=== PATIENT | male | born 1955 | race Caucasian/White ===

== ENCOUNTER → 2018-01-06 17:16 | Outpatient (CLI) | payer MEDICARE, SELFPAY ==
[2018-01-06 18:05] LABS: Cholesterol 190 mg/dL (200); High Density Lipoprotein 43 mg/dL; Triglycerides 195 mg/dL; Very Low Density Lipoprotein 39 mg/dL (5-40)
== END ==
PROVIDERS: Visit Provider Physician Assistant
DX: Z79.899 Other long term (current) drug therapy (principal)
CPT/HCPCS: 80061

== ENCOUNTER → 2018-01-24 13:51 | Outpatient (CLI) | payer MEDICARE, SELFPAY ==
[2018-01-24 16:00] LABS: Absolute Lymphocyte Count 2.34 X10^3/ul (0.83-4.51); Absolute Neutrophil Count 3.8 X10^3/uL (2.0-7.7); Basophil# 0.05 X10^3/uL; Basophil% 0.7 % (0-1); Eosinophil# 0.42 X10^3/uL; Eosinophils% 5.7 % (0-5); Hematocrit 42.4 % (40-54); Hemoglobin 14.1 g/dl (13.0-16.5); Lymphocyte # 2.34 X10^3/ul (4.0); Lymphocyte % 31.7 % (19-41); Mean Corp Hgb Conc 33.3 g/gl (32-36); Mean Corpuscular Hgb 30.6 pg (27.0-32.0); Mean Platelet Vol. 10.1 fl (6.2-12.0); Monocyte# 0.81 X10^3/uL; Neutrophil # 3.76 X10^3/uL (2.7-7.7); Neutrophil % 50.8 % (47-70); Platelet Count 258 K/mm3 (150-450); RBC Distribution Width CV 12.8 % (11.6-14.6); RBC Distribution Width SD 42.8 fl (35.1-43.9); Red Blood Count 4.61 M/mm3 (4.6-6.2); White Blood Count 7.4 K/mm3 (4.4-11.0)
[2018-01-24 16:13] LABS: POSITIVE COUNT NO; POSITIVE DIFFERENTIAL NO; POSITIVE MORPHOLOGY NO
[2018-01-24 16:28] LABS: ALB/GLOB Ratio 1.1 RATIO (0.9-2.4); AST(SGOT) 19 U/L (15-37); Alanine Aminotransfer ALT/SGPT 28 U/L (16-61); Albumin, Serum 3.9 g/dL (3.2-5.0); Alkaline Phosphatase 83 U/L (45-117); Anion Gap 7 (5-15); BUN 15 mg/dL (7-18); BUN/Creat Ratio 10.2 RATIO (10-20); Calcium,Total 9.1 mg/dL (8.5-10.1); Chloride 106 mmol/L (98-107); Creatinine, Serum 1.47 mg/dL (0.70-1.30); EST Glomerular Filtration Rate 52 mL/min (>60); Est Glom Filt Rate - Afr Amer 63 mL/min (>60); Globulin 3.5 g/dL (2.2-4.2); Glucose 95 mg/dL (74-106); Potassium 3.7 mmol/L (3.5-5.1); Protein, Total 7.4 g/dL (6.4-8.2); Sodium Level 143 mmol/L (136-145)
== END ==
PROVIDERS: Family Provider Physician Assistant; PCP Physician Assistant; Visit Provider Internal Medicine Rheumatology
DX: L40.59 Other psoriatic arthropathy (principal); L40.9 Psoriasis, unspecified; M79.7 Fibromyalgia; M21.40 Flat foot [pes planus] (acquired), unspecified foot; H33.8 Other retinal detachments; G47.33 Obstructive sleep apnea (adult) (pediatric); I34.0 Nonrheumatic mitral (valve) insufficiency; E03.9 Hypothyroidism, unspecified; F32.89 Other specified depressive episodes
CPT/HCPCS: 36415; 80053; 85025

== ENCOUNTER → 2018-07-16 16:25 | Outpatient (CLI) | payer MEDICARE, SELFPAY ==
[2018-07-16 17:49] LABS: Absolute Lymphocyte Count 2.51 X10^3/ul (0.83-4.51); Absolute Neutrophil Count 3.6 X10^3/uL (2.0-7.7); Basophil# 0.05 X10^3/uL; Basophil% 0.7 % (0-1); Eosinophil# 0.29 X10^3/uL; Eosinophils% 4.1 % (0-5); Hematocrit 43.7 % (40-54); Hemoglobin 14.4 g/dl (13.0-16.5); Lymphocyte # 2.51 X10^3/ul (4.0); Lymphocyte % 35.4 % (19-41); Mean Corpuscular Hgb 30.4 pg (27.0-32.0); Mean Corpuscular Volume 92.4 fL (80-94); Mean Platelet Vol. 9.9 fl (6.2-12.0); Monocyte# 0.65 X10^3/uL; Monocyte% 9.2 % (0-10); Neutrophil # 3.59 X10^3/uL (2.7-7.7); Neutrophil % 50.5 % (47-70); Platelet Count 242 K/mm3 (150-450); RBC Distribution Width CV 12.1 % (11.6-14.6); RBC Distribution Width SD 41.3 fl (35.1-43.9); Red Blood Count 4.73 M/mm3 (4.6-6.2); White Blood Count 7.1 K/mm3 (4.4-11.0)
[2018-07-16 17:52] LABS: POSITIVE COUNT NO; POSITIVE DIFFERENTIAL NO; POSITIVE MORPHOLOGY NO
[2018-07-16 18:01] LABS: ALB/GLOB Ratio 1.1 RATIO (0.9-2.4); AST(SGOT) 15 U/L (15-37); Alanine Aminotransfer ALT/SGPT 27 U/L (16-61); Albumin, Serum 3.8 g/dL (3.2-5.0); Alkaline Phosphatase 79 U/L (45-117); Anion Gap 9 (5-15); BUN 10 mg/dL (7-18); BUN/Creat Ratio 7.5 RATIO (10-20); Calcium,Total 8.6 mg/dL (8.5-10.1); Chloride 106 mmol/L (98-107); Creatinine, Serum 1.33 mg/dL (0.70-1.30); EST Glomerular Filtration Rate 58 mL/min (>60); Est Glom Filt Rate - Afr Amer 70 mL/min (>60); Globulin 3.6 g/dL (2.2-4.2); Glucose 86 mg/dL (74-106); Potassium 3.6 mmol/L (3.5-5.1); Protein, Total 7.4 g/dL (6.4-8.2); Sodium Level 143 mmol/L (136-145); Uric Acid 7.6 mg/dL (3.5-7.2)
== END ==
PROVIDERS: Family Provider Physician Assistant; PCP Physician Assistant; Visit Provider Internal Medicine Rheumatology
DX: L40.59 Other psoriatic arthropathy (principal); E03.9 Hypothyroidism, unspecified; L40.9 Psoriasis, unspecified; M79.7 Fibromyalgia; M21.40 Flat foot [pes planus] (acquired), unspecified foot; H33.8 Other retinal detachments; G47.33 Obstructive sleep apnea (adult) (pediatric); I34.0 Nonrheumatic mitral (valve) insufficiency; F32.89 Other specified depressive episodes
CPT/HCPCS: 36415; 80053; 84550; 85025

== ENCOUNTER → 2018-12-31 15:36 | Outpatient (CLI) | payer MEDICARE, SELFPAY ==
[2018-12-31 17:46] LABS: AST(SGOT) 28 U/L (15-37); Alanine Aminotransfer ALT/SGPT 36 U/L (16-61); Albumin, Serum 4.1 g/dL (3.2-5.0); Alkaline Phosphatase 81 U/L (45-117); Anion Gap 11 (5-15); BUN 11 mg/dL (7-18); BUN/Creat Ratio 7.4 RATIO (10-20); Calcium,Total 9.2 mg/dL (8.5-10.1); Chloride 104 mmol/L (98-107); Creatinine, Serum 1.48 mg/dL (0.70-1.30); EST Glomerular Filtration Rate 51 mL/min (>60); Est Glom Filt Rate - Afr Amer 62 mL/min (>60); Glucose 85 mg/dL (74-106); Potassium 3.7 mmol/L (3.5-5.1); Protein, Total 8.1 g/dL (6.4-8.2); Sodium Level 142 mmol/L (136-145)
[2018-12-31 17:49] LABS: Absolute Lymphocyte Count 3.24 X10^3/ul (0.83-4.51); Absolute Neutrophil Count 3.4 X10^3/uL (2.0-7.7); Basophil# 0.06 X10^3/uL; Basophil% 0.7 % (0-1); Eosinophil# 0.62 X10^3/uL; Eosinophils% 7.6 % (0-5); Hematocrit 45.2 % (40-54); Hemoglobin 15.6 g/dl (13.0-16.5); Lymphocyte # 3.24 X10^3/ul (4.0); Lymphocyte % 39.6 % (19-41); Mean Corp Hgb Conc 34.5 g/gl (32-36); Mean Corpuscular Hgb 31.6 pg (27.0-32.0); Mean Corpuscular Volume 91.5 fL (80-94); Mean Platelet Vol. 10.4 fl (6.2-12.0); Monocyte# 0.86 X10^3/uL; Monocyte% 10.5 % (0-10); Neutrophil # 3.38 X10^3/uL (2.7-7.7); Neutrophil % 41.4 % (47-70); POSITIVE COUNT NO; POSITIVE DIFFERENTIAL NO; POSITIVE MORPHOLOGY NO; Platelet Count 290 K/mm3 (150-450); RBC Distribution Width CV 12.5 % (11.6-14.6); RBC Distribution Width SD 41.1 fl (35.1-43.9); Red Blood Count 4.94 M/mm3 (4.6-6.2); White Blood Count 8.2 K/mm3 (4.4-11.0)
== END ==
PROVIDERS: Family Provider Physician Assistant; PCP Physician Assistant; Referring Provider Internal Medicine Rheumatology; Visit Provider Internal Medicine Rheumatology
DX: L40.59 Other psoriatic arthropathy (principal); L40.9 Psoriasis, unspecified; M79.7 Fibromyalgia; M21.40 Flat foot [pes planus] (acquired), unspecified foot; H33.8 Other retinal detachments; G47.33 Obstructive sleep apnea (adult) (pediatric); I34.0 Nonrheumatic mitral (valve) insufficiency; F32.89 Other specified depressive episodes; E03.9 Hypothyroidism, unspecified
CPT/HCPCS: 36415; 80053; 85025

== ENCOUNTER → 2019-07-01 | Outpatient (CLI) | payer MEDICARE, SELFPAY ==
[2019-07-01 12:28] LABS: Absolute Lymphocyte Count 2.97 X10^3/uL (0.83-4.51); Absolute Neutrophil Count 3.2 X10^3/uL (2.0-7.7); Basophil# 0.07 X10^3/uL; Eosinophil# 0.34 X10^3/uL; Eosinophils% 4.8 % (0-5); Hematocrit 40.7 % (40-54); Hemoglobin 13.4 g/dL (13.0-16.5); Lymphocyte # 2.97 X10^3/ul (4.0); Lymphocyte % 41.6 % (19-41); Mean Corp Hgb Conc 32.9 g/dL (32-36); Mean Corpuscular Hgb 30.5 pg (27.0-32.0); Mean Corpuscular Volume 92.7 fL (80-94); Mean Platelet Vol. 10.7 fl (6.2-12.0); Monocyte# 0.57 X10^3/uL; NRBC Flagged by Analyzer 0 % (0-5); Neutrophil # 3.17 X10^3/uL (2.7-7.7); Neutrophil % 44.3 % (47-70); Platelet Count 238 K/mm3 (150-450); RBC Distribution Width CV 12.4 % (11.6-14.6); Red Blood Count 4.39 M/mm3 (4.6-6.2); White Blood Count 7.1 K/mm3 (4.4-11.0)
[2019-07-01 12:50] LABS: ALB/GLOB Ratio 1.1 RATIO (0.9-2.4); AST(SGOT) 18 U/L (15-37); Alanine Aminotransfer ALT/SGPT 28 U/L (16-61); Albumin, Serum 3.8 g/dL (3.2-5.0); Alkaline Phosphatase 74 U/L (45-117); Anion Gap 9 (5-15); BUN 11 mg/dL (7-18); BUN/Creat Ratio 7.2 RATIO (10-20); Calcium,Total 8.7 mg/dL (8.5-10.1); Chloride 105 mmol/L (98-107); Creatinine, Serum 1.53 mg/dL (0.70-1.30); EST Glomerular Filtration Rate 49 mL/min (>60); Est Glom Filt Rate - Afr Amer 60 mL/min (>60); Globulin 3.4 g/dL (2.2-4.2); Glucose 133 mg/dL (74-106); Potassium 3.4 mmol/L (3.5-5.1); Protein, Total 7.2 g/dL (6.4-8.2); Sodium Level 142 mmol/L (136-145)
== END | disposition home or self-care (01) ==
LOC: MTLAB 10:14
PROVIDERS: Family Provider Physician Assistant; PCP Physician Assistant; Referring Provider Internal Medicine Rheumatology; Visit Provider Internal Medicine Rheumatology
DX: L40.59 Other psoriatic arthropathy (principal); L40.9 Psoriasis, unspecified; M79.7 Fibromyalgia
CPT/HCPCS: 36415; 80053; 85025

== ENCOUNTER → 2019-12-31 11:16 | Outpatient (CLI) | payer MEDICARE, SELFPAY ==
[2019-12-31 14:16] LABS: Absolute Lymphocyte Count 3.33 X10^3/uL (0.83-4.51); Absolute Neutrophil Count 3.2 X10^3/uL (2.0-7.7); Basophil# 0.06 X10^3/uL; Basophil% 0.8 % (0-1); Eosinophil# 0.33 X10^3/uL; Eosinophils% 4.3 % (0-5); Hematocrit 42.8 % (40-54); Hemoglobin 14.5 g/dL (13.0-16.5); Lymphocyte # 3.33 X10^3/ul (4.0); Mean Corp Hgb Conc 33.9 g/dL (32-36); Mean Corpuscular Volume 91.6 fL (80-94); Mean Platelet Vol. 10.2 fl (6.2-12.0); Monocyte# 0.77 X10^3/uL; Monocyte% 9.9 % (0-10); NRBC Flagged by Analyzer 0 % (0-5); Neutrophil # 3.24 X10^3/uL (2.7-7.7); Neutrophil % 41.7 % (47-70); Platelet Count 248 K/mm3 (150-450); RBC Distribution Width SD 40.1 fl (35.1-43.9); Red Blood Count 4.67 M/mm3 (4.6-6.2); White Blood Count 7.8 K/mm3 (4.4-11.0)
[2019-12-31 14:28] LABS: ALB/GLOB Ratio 1.1 RATIO (0.9-2.4); AST(SGOT) 17 U/L (15-37); Alanine Aminotransfer ALT/SGPT 31 U/L (16-61); Albumin, Serum 3.7 g/dL (3.2-5.0); Alkaline Phosphatase 67 U/L (45-117); Anion Gap 3 (5-15); BUN 14 mg/dL (7-18); BUN/Creat Ratio 9.8 RATIO (10-20); Chloride 109 mmol/L (98-107); Creatinine, Serum 1.43 mg/dL (0.70-1.30); EST Glomerular Filtration Rate 53 mL/min (>60); Est Glom Filt Rate - Afr Amer 64 mL/min (>60); Globulin 3.4 g/dL (2.2-4.2); Glucose 89 mg/dL (74-106); Potassium 3.7 mmol/L (3.5-5.1); Protein, Total 7.1 g/dL (6.4-8.2); Sodium Level 141 mmol/L (136-145)
== END ==
PROVIDERS: PCP Physician Assistant; Referring Provider Internal Medicine Rheumatology; Visit Provider Internal Medicine Rheumatology
DX: L40.59 Other psoriatic arthropathy (principal); L40.9 Psoriasis, unspecified; M79.7 Fibromyalgia; M21.40 Flat foot [pes planus] (acquired), unspecified foot; H33.8 Other retinal detachments; G47.33 Obstructive sleep apnea (adult) (pediatric); I34.0 Nonrheumatic mitral (valve) insufficiency; E03.9 Hypothyroidism, unspecified
CPT/HCPCS: 36415; 80053; 85025

== ENCOUNTER → 2020-06-29 09:31 | Outpatient (CLI) | payer MEDICARE, SELFPAY ==
[2020-06-29 12:36] LABS: Absolute Lymphocyte Count 2.45 X10^3/uL (0.83-4.51); Basophil# 0.06 X10^3/uL; Basophil% 0.9 % (0-1); Eosinophil# 0.24 X10^3/uL; Eosinophils% 3.7 % (0-5); Hematocrit 40.6 % (40-54); Hemoglobin 13.4 g/dL (13.0-16.5); Lymphocyte # 2.45 X10^3/ul (4.0); Lymphocyte % 37.7 % (19-41); Mean Corpuscular Hgb 31.5 pg (27.0-32.0); Mean Corpuscular Volume 95.3 fL (80-94); Mean Platelet Vol. 10.3 fl (6.2-12.0); Monocyte% 10.8 % (0-10); NRBC Flagged by Analyzer 0 % (0-5); Neutrophil # 3.04 X10^3/uL (2.7-7.7); Neutrophil % 46.7 % (47-70); Platelet Count 231 K/mm3 (150-450); RBC Distribution Width CV 13.1 % (11.6-14.6); RBC Distribution Width SD 44.6 fl (35.1-43.9); Red Blood Count 4.26 M/mm3 (4.6-6.2); White Blood Count 6.5 K/mm3 (4.4-11.0)
[2020-06-29 12:43] LABS: ALB/GLOB Ratio 1.2 RATIO (0.9-2.4); AST(SGOT) 15 U/L (15-37); Alanine Aminotransfer ALT/SGPT 24 U/L (16-61); Albumin, Serum 3.8 g/dL (3.2-5.0); Alkaline Phosphatase 66 U/L (45-117); Anion Gap 4 (5-15); BUN 11 mg/dL (7-18); BUN/Creat Ratio 7.8 RATIO (10-20); Calcium,Total 8.7 mg/dL (8.5-10.1); Chloride 109 mmol/L (98-107); Creatinine, Serum 1.41 mg/dL (0.70-1.30); EST Glomerular Filtration Rate 54 mL/min (>60); Est Glom Filt Rate - Afr Amer 65 mL/min (>60); Globulin 3.2 g/dL (2.2-4.2); Glucose 85 mg/dL (74-106); Potassium 3.7 mmol/L (3.5-5.1); Sodium Level 142 mmol/L (136-145)
== END ==
PROVIDERS: PCP Physician Assistant; Referring Provider Internal Medicine Rheumatology; Visit Provider Internal Medicine Rheumatology
DX: L40.59 Other psoriatic arthropathy (principal); L40.9 Psoriasis, unspecified; M79.7 Fibromyalgia; M21.40 Flat foot [pes planus] (acquired), unspecified foot; H33.8 Other retinal detachments; G47.33 Obstructive sleep apnea (adult) (pediatric); I34.0 Nonrheumatic mitral (valve) insufficiency; E03.9 Hypothyroidism, unspecified; H40.9 Unspecified glaucoma
CPT/HCPCS: 36415; 80053; 85025

== ENCOUNTER → 2020-11-03 15:09 | Outpatient (CLI) | payer MEDICARE, SELFPAY ==
[2020-11-03 16:24] LABS: Cholesterol 166 mg/dL (200); High Density Lipoprotein 40 mg/dL; Triglycerides 147 mg/dL; Very Low Density Lipoprotein 29 mg/dL (5-40)
== END ==
PROVIDERS: PCP Physician Assistant; Referring Provider Physician Assistant; Visit Provider Physician Assistant
DX: E78.5 Hyperlipidemia, unspecified (principal)
CPT/HCPCS: 80061

== ENCOUNTER → 2020-12-26 15:23 | Outpatient (CLI) | payer MEDICARE, SELFPAY ==
[2020-12-26 17:57] LABS: Absolute Lymphocyte Count 2.38 X10^3/uL (0.83-4.51); Absolute Neutrophil Count 4.5 X10^3/uL (2.0-7.7); Basophil# 0.05 X10^3/uL; Basophil% 0.6 % (0-1); Eosinophil# 0.37 X10^3/uL; Eosinophils% 4.4 % (0-5); Hemoglobin 14.1 g/dL (13.0-16.5); Lymphocyte # 2.38 X10^3/ul (4.0); Lymphocyte % 28.6 % (19-41); Mean Corp Hgb Conc 33.6 g/dL (32-36); Mean Corpuscular Hgb 31.1 pg (27.0-32.0); Mean Corpuscular Volume 92.7 fL (80-94); Mean Platelet Vol. 10.5 fl (6.2-12.0); Monocyte# 0.97 X10^3/uL; Monocyte% 11.7 % (0-10); NRBC Flagged by Analyzer 0 % (0-5); Neutrophil # 4.51 X10^3/uL (2.7-7.7); Neutrophil % 54.2 % (47-70); Platelet Count 255 K/mm3 (150-450); RBC Distribution Width CV 11.9 % (11.6-14.6); RBC Distribution Width SD 40.8 fl (35.1-43.9); Red Blood Count 4.53 M/mm3 (4.6-6.2); White Blood Count 8.3 K/mm3 (4.4-11.0)
[2020-12-26 18:16] LABS: ALB/GLOB Ratio 1.1 RATIO (0.9-2.4); AST(SGOT) 23 U/L (15-37); Alanine Aminotransfer ALT/SGPT 36 U/L (16-61); Albumin, Serum 3.6 g/dL (3.2-5.0); Alkaline Phosphatase 81 U/L (45-117); Anion Gap 7 (5-15); BUN 14 mg/dL (7-18); BUN/Creat Ratio 9.6 RATIO (10-20); Calcium,Total 8.4 mg/dL (8.5-10.1); Chloride 105 mmol/L (98-107); Creatinine, Serum 1.46 mg/dL (0.70-1.30); EST Glomerular Filtration Rate 52 mL/min (>60); Est Glom Filt Rate - Afr Amer 63 mL/min (>60); Globulin 3.3 g/dL (2.2-4.2); Glucose 89 mg/dL (74-106); Potassium 3.3 mmol/L (3.5-5.1); Protein, Total 6.9 g/dL (6.4-8.2); Sodium Level 141 mmol/L (136-145)
== END ==
PROVIDERS: PCP Physician Assistant; Referring Provider Internal Medicine Rheumatology; Visit Provider Internal Medicine Rheumatology
DX: L40.59 Other psoriatic arthropathy (principal); L40.9 Psoriasis, unspecified; M79.7 Fibromyalgia; M21.40 Flat foot [pes planus] (acquired), unspecified foot; H53.8 Other visual disturbances; G47.33 Obstructive sleep apnea (adult) (pediatric); I34.0 Nonrheumatic mitral (valve) insufficiency; E03.9 Hypothyroidism, unspecified; H40.9 Unspecified glaucoma
CPT/HCPCS: 36415; 80053; 85025

== ENCOUNTER → 2021-06-29 11:23 | Outpatient (CLI) | payer MEDICARE, SELFPAY ==
[2021-06-29 15:19] LABS: Absolute Lymphocyte Count 2.46 X10^3/uL (0.83-4.51); Absolute Neutrophil Count 2.9 X10^3/uL (2.0-7.7); Basophil# 0.07 X10^3/uL; Basophil% 1.1 % (0-1); Eosinophil# 0.31 X10^3/uL; Eosinophils% 4.8 % (0-5); Hematocrit 40.1 % (40-54); Hemoglobin 13.1 g/dL (13.0-16.5); Lymphocyte # 2.46 X10^3/ul (0.83-4.51); Lymphocyte % 37.7 % (19-41); Mean Corp Hgb Conc 32.7 g/dL (32-36); Mean Corpuscular Hgb 31.5 pg (27.0-32.0); Mean Corpuscular Volume 96.4 fL (80-94); Mean Platelet Vol. 10.6 fl (6.2-12.0); Monocyte# 0.79 X10^3/uL; Monocyte% 12.1 % (0-10); NRBC Flagged by Analyzer 0 % (0-5); Neutrophil # 2.87 X10^3/uL (2.7-7.7); Platelet Count 219 K/mm3 (150-450); RBC Distribution Width CV 12.6 % (11.6-14.6); RBC Distribution Width SD 44.6 fl (35.1-43.9); Red Blood Count 4.16 M/mm3 (4.6-6.2); White Blood Count 6.5 K/mm3 (4.4-11.0)
[2021-06-29 15:47] LABS: ALB/GLOB Ratio 1.2 RATIO (0.9-2.4); AST(SGOT) 43 U/L (15-37); Alanine Aminotransfer ALT/SGPT 63 U/L (16-61); Albumin, Serum 3.8 g/dL (3.2-5.0); Alkaline Phosphatase 63 U/L (45-117); Anion Gap 6 (5-15); BUN 17 mg/dL (7-18); BUN/Creat Ratio 13.1 RATIO (10-20); Calcium,Total 8.8 mg/dL (8.5-10.1); Chloride 105 mmol/L (98-107); EST Glomerular Filtration Rate 59 mL/min (>60); Est Glom Filt Rate - Afr Amer 71 mL/min (>60); Globulin 3.1 g/dL (2.2-4.2); Glucose 101 mg/dL (74-106); Potassium 3.9 mmol/L (3.5-5.1); Protein, Total 6.9 g/dL (6.4-8.2); Sodium Level 140 mmol/L (136-145)
== END ==
PROVIDERS: PCP Physician Assistant; Referring Provider Internal Medicine Rheumatology; Visit Provider Internal Medicine Rheumatology
DX: L40.59 Other psoriatic arthropathy (principal); L40.9 Psoriasis, unspecified; M79.7 Fibromyalgia; M21.40 Flat foot [pes planus] (acquired), unspecified foot; H33.8 Other retinal detachments; G47.33 Obstructive sleep apnea (adult) (pediatric); I34.0 Nonrheumatic mitral (valve) insufficiency; E03.9 Hypothyroidism, unspecified; H40.9 Unspecified glaucoma
CPT/HCPCS: 36415; 80053; 85025

== ENCOUNTER 2021-12-14 12:35 | Outpatient (CLI) | payer MEDICARE, SELFPAY ==
[2021-12-14 13:34] LABS: Cholesterol 173 mg/dL (200); High Density Lipoprotein 41 mg/dL; Triglycerides 110 mg/dL; Very Low Density Lipoprotein 22 mg/dL (5-40)
[2021-12-14 13:36] LABS: Vitamin D,25 Hydroxy 66.2 ng/mL
== END 2021-12-14 23:59 | disposition short-term general hospital (02) ==
LOC: LABSPEC 12:37
PROVIDERS: PCP Physician Assistant; Visit Provider Physician Assistant
DX: E78.5 Hyperlipidemia, unspecified (principal); E55.9 Vitamin D deficiency, unspecified
CPT/HCPCS: 80061; 82306

== ENCOUNTER → 2022-05-28 | Outpatient (CLI) | payer MEDICARE, SELFPAY ==
[2022-05-28 09:55] LABS: Absolute Lymphocyte Count 2.83 X10^3/uL (0.83-4.51); Absolute Neutrophil Count 3.3 X10^3/uL (2.0-7.7); Basophil# 0.07 X10^3/uL; Basophil% 0.9 % (0-1); Eosinophil# 0.33 X10^3/uL; Eosinophils% 4.4 % (0-5); Hemoglobin 14.4 g/dL (13.0-16.5); Lymphocyte # 2.83 X10^3/ul (0.83-4.51); Lymphocyte % 38.1 % (19-41); Mean Corp Hgb Conc 34.3 g/dL (32-36); Mean Corpuscular Hgb 31.5 pg (27.0-32.0); Mean Corpuscular Volume 91.9 fL (80-94); Mean Platelet Vol. 10.2 fl (6.2-12.0); Monocyte# 0.89 X10^3/uL; NRBC Flagged by Analyzer 0 % (0-5); Neutrophil # 3.26 X10^3/uL (2.7-7.7); Neutrophil % 44.1 % (47-70); Platelet Count 227 K/mm3 (150-450); RBC Distribution Width CV 12.1 % (11.6-14.6); RBC Distribution Width SD 40.7 fl (35.1-43.9); Red Blood Count 4.57 M/mm3 (4.6-6.2); White Blood Count 7.4 K/mm3 (4.4-11.0)
[2022-05-28 10:26] LABS: ALB/GLOB Ratio 1.1 RATIO (0.9-2.4); AST(SGOT) 33 U/L (15-37); Alanine Aminotransfer ALT/SGPT 49 U/L (16-61); Albumin, Serum 3.6 g/dL (3.2-5.0); Alkaline Phosphatase 66 U/L (45-117); Anion Gap 7 (5-15); BUN 13 mg/dL (7-18); BUN/Creat Ratio 9.2 RATIO (10-20); Chloride 106 mmol/L (98-107); Creatinine, Serum 1.42 mg/dL (0.70-1.30); EST Glomerular Filtration Rate 53 mL/min (>60); Est Glom Filt Rate - Afr Amer 64 mL/min (>60); Globulin 3.4 g/dL (2.2-4.2); Glucose 94 mg/dL (74-106); Potassium 3.7 mmol/L (3.5-5.1); Sodium Level 140 mmol/L (136-145)
== END | disposition home or self-care (01) ==
PROVIDERS: PCP Physician Assistant; Referring Provider Internal Medicine Rheumatology; Visit Provider Internal Medicine Rheumatology
DX: L40.59 Other psoriatic arthropathy (principal); M79.7 Fibromyalgia; M21.40 Flat foot [pes planus] (acquired), unspecified foot; H33.8 Other retinal detachments; G47.33 Obstructive sleep apnea (adult) (pediatric); I34.0 Nonrheumatic mitral (valve) insufficiency; F32.9 Major depressive disorder, single episode, unspecified; E03.9 Hypothyroidism, unspecified; H40.9 Unspecified glaucoma; Z79.899 Other long term (current) drug therapy
CPT/HCPCS: 36415; 80053; 85025

== ENCOUNTER → 2022-12-04 | Outpatient (CLI) | payer MEDICARE, SELFPAY ==
[2022-12-04 12:17] LABS: Absolute Lymphocyte Count 1.88 X10^3/uL (0.83-4.51); Absolute Neutrophil Count 3.4 X10^3/uL (2.0-7.7); Basophil# 0.08 X10^3/uL; Basophil% 1.3 % (0-1); Eosinophil# 0.31 X10^3/uL; Eosinophils% 4.9 % (0-5); Hematocrit 40.2 % (40-54); Hemoglobin 13.6 g/dL (13.0-16.5); Lymphocyte # 1.88 X10^3/ul (0.83-4.51); Lymphocyte % 29.8 % (19-41); Mean Corp Hgb Conc 33.8 g/dL (32-36); Mean Corpuscular Hgb 31.8 pg (27.0-32.0); Mean Corpuscular Volume 93.9 fL (80-94); Mean Platelet Vol. 9.9 fl (6.2-12.0); Monocyte# 0.62 X10^3/uL; Monocyte% 9.8 % (0-10); NRBC Flagged by Analyzer 0 % (0-5); Neutrophil # 3.38 X10^3/uL (2.7-7.7); Neutrophil % 53.7 % (47-70); Platelet Count 281 K/mm3 (150-450); RBC Distribution Width CV 12.2 % (11.6-14.6); RBC Distribution Width SD 42.4 fl (35.1-43.9); Red Blood Count 4.28 M/mm3 (4.6-6.2); White Blood Count 6.3 K/mm3 (4.4-11.0)
[2022-12-04 12:39] LABS: AST(SGOT) 20 U/L (15-37); Alanine Aminotransfer ALT/SGPT 35 U/L (16-61); Albumin, Serum 3.5 g/dL (3.2-5.0); Alkaline Phosphatase 63 U/L (45-117); Anion Gap 8 (5-15); BUN 20 mg/dL (7-18); BUN/Creat Ratio 14.8 RATIO (10-20); Calcium,Total 8.9 mg/dL (8.5-10.1); Chloride 105 mmol/L (98-107); Creatinine, Serum 1.35 mg/dL (0.70-1.30); EST Glomerular Filtration Rate 56 mL/min (>60); Est Glom Filt Rate - Afr Amer 68 mL/min (>60); Globulin 3.5 g/dL (2.2-4.2); Glucose 123 mg/dL (74-106); Potassium 3.9 mmol/L (3.5-5.1); Sodium Level 140 mmol/L (136-145)
== END | disposition home or self-care (01) ==
LOC: MTLAB 10:33
PROVIDERS: PCP Physician Assistant; Referring Provider Internal Medicine Rheumatology; Visit Provider Internal Medicine Rheumatology
DX: L40.59 Other psoriatic arthropathy (principal); M79.7 Fibromyalgia; M21.40 Flat foot [pes planus] (acquired), unspecified foot; H33.8 Other retinal detachments; G47.33 Obstructive sleep apnea (adult) (pediatric); I34.0 Nonrheumatic mitral (valve) insufficiency; F32.9 Major depressive disorder, single episode, unspecified; E03.9 Hypothyroidism, unspecified; H40.9 Unspecified glaucoma; Z79.899 Other long term (current) drug therapy
CPT/HCPCS: 36415; 80053; 85025

== ENCOUNTER → 2023-05-30 | Outpatient (CLI) | payer MEDICARE, SELFPAY ==
[2023-05-30 12:21] LABS: Absolute Lymphocyte Count 2.55 X10^3/uL (0.83-4.51); Absolute Neutrophil Count 4.3 X10^3/uL (2.0-7.7); Basophil# 0.09 X10^3/uL; Basophil% 1.1 % (0-1); Eosinophil# 0.36 X10^3/uL; Eosinophils% 4.4 % (0-5); Hematocrit 43.3 % (40-54); Hemoglobin 14.7 g/dL (13.0-16.5); Lymphocyte # 2.55 X10^3/ul (0.83-4.51); Lymphocyte % 31.2 % (19-41); Mean Corp Hgb Conc 33.9 g/dL (32-36); Mean Corpuscular Hgb 31.1 pg (27.0-32.0); Mean Corpuscular Volume 91.7 fL (80-94); Mean Platelet Vol. 10.5 fl (6.2-12.0); Monocyte# 0.84 X10^3/uL; Monocyte% 10.3 % (0-10); NRBC Flagged by Analyzer 0 % (0-5); Neutrophil % 52.5 % (47-70); Platelet Count 255 K/mm3 (150-450); RBC Distribution Width CV 12.1 % (11.6-14.6); RBC Distribution Width SD 40.6 fl (35.1-43.9); Red Blood Count 4.72 M/mm3 (4.6-6.2); White Blood Count 8.2 K/mm3 (4.4-11.0)
[2023-05-30 12:32] LABS: AST(SGOT) 22 U/L (15-37); Alanine Aminotransfer ALT/SGPT 26 U/L (16-61); Albumin, Serum 3.8 g/dL (3.2-5.0); Alkaline Phosphatase 76 U/L (45-117); Anion Gap 5 (5-15); BUN 16 mg/dL (7-18); Calcium,Total 9.1 mg/dL (8.5-10.1); Chloride 107 mmol/L (98-107); Creatinine, Serum 1.46 mg/dL (0.70-1.30); EST Glomerular Filtration Rate 51 mL/min (>60); Est Glom Filt Rate - Afr Amer 62 mL/min (>60); Glucose 136 mg/dL (74-106); Protein, Total 7.8 g/dL (6.4-8.2); Sodium Level 139 mmol/L (136-145)
== END | disposition home or self-care (01) ==
LOC: MTLAB 10:50
PROVIDERS: PCP Physician Assistant; Referring Provider Internal Medicine Rheumatology; Visit Provider Internal Medicine Rheumatology
DX: L40.59 Other psoriatic arthropathy (principal); M79.7 Fibromyalgia; Z79.899 Other long term (current) drug therapy
CPT/HCPCS: 36415; 80053; 85025

== ENCOUNTER → 2023-09-02 | Outpatient (CLI) | payer MEDICARE, SELFPAY ==
[2023-09-02 10:04] LABS: Absolute Lymphocyte Count 3.44 X10^3/uL (0.83-4.51); Absolute Neutrophil Count 5.3 X10^3/uL (2.0-7.7); Basophil# 0.11 X10^3/uL; Basophil% 1.1 % (0-1); Eosinophil# 0.36 X10^3/uL; Eosinophils% 3.5 % (0-5); Hemoglobin 14.2 g/dL (13.0-16.5); Lymphocyte # 3.44 X10^3/ul (0.83-4.51); Lymphocyte % 33.4 % (19-41); Mean Corpuscular Hgb 31.6 pg (27.0-32.0); Mean Corpuscular Volume 95.6 fL (80-94); Mean Platelet Vol. 10.5 fl (6.2-12.0); Monocyte# 1.06 X10^3/uL; Monocyte% 10.3 % (0-10); NRBC Flagged by Analyzer 0 % (0-5); Neutrophil # 5.29 X10^3/uL (2.7-7.7); Neutrophil % 51.3 % (47-70); Platelet Count 264 K/mm3 (150-450); RBC Distribution Width CV 12.3 % (11.6-14.6); White Blood Count 10.3 K/mm3 (4.4-11.0)
[2023-09-02 10:29] LABS: AST(SGOT) 17 U/L (15-37); Alanine Aminotransfer ALT/SGPT 28 U/L (16-61); Albumin, Serum 3.8 g/dL (3.2-5.0); Alkaline Phosphatase 68 U/L (45-117); Anion Gap 7 (5-15); BUN 19 mg/dL (7-18); BUN/Creat Ratio 14.4 RATIO (10-20); Calcium,Total 8.8 mg/dL (8.5-10.1); Chloride 104 mmol/L (98-107); Creatinine, Serum 1.32 mg/dL (0.70-1.30); EST Glomerular Filtration Rate 58 mL/min (>60); Est Glom Filt Rate - Afr Amer 70 mL/min (>60); Globulin 3.9 g/dL (2.2-4.2); Glucose 110 mg/dL (74-106); Potassium 3.4 mmol/L (3.5-5.1); Protein, Total 7.7 g/dL (6.4-8.2); Sodium Level 139 mmol/L (136-145)
== END | disposition home or self-care (01) ==
LOC: MTLAB 07:02
PROVIDERS: PCP Physician Assistant; Referring Provider Internal Medicine Rheumatology; Visit Provider Internal Medicine Rheumatology
DX: L40.59 Other psoriatic arthropathy (principal); M79.7 Fibromyalgia; Z79.899 Other long term (current) drug therapy
CPT/HCPCS: 36415; 80053; 85025

== ENCOUNTER → 2023-09-25 | Outpatient (CLI) | payer MEDICARE, SELFPAY ==
[2023-09-25 16:55] LABS: Pathologist Comment May follow
[2023-09-25 18:26] LABS: Synovial Fld Mononuclear WBC # 0.135 10^3/ul; Synovial Fld Mononuclear WBC % 87.1 %; Synovial Fld Polynuclear WBC % 12.9 %
[2023-09-25 18:39] LABS: RBC /Synovial Fluid 25 /mm3 (0)
[2023-09-25 21:12] LABS: AUTO B FLUID DILUENT BKGD CT WBC <0.1 RBC <0.01 (W<.1,R<.01); CRYSTALS, BODY FLUID See PATH REV; Source- Body Fluid SYNOVIAL
[2023-09-25 21:13] LABS: Appearance /Synovial Fluid Clear (CLEAR); Color / Synovial Fluid Yellow (Pale Yellow); Lymph 6 %; Source / Synovial Fluid RIGHT KNEE
[2023-09-25 21:14] LABS: Monocyte /Synovial Fluid 87 %
[2023-09-25 21:15] LABS: Neutrophil 7 % (0-25)
[2023-09-25 21:16] LABS: Body Fluid QC Type(s) BF1Q,BF2Q
[2023-09-27 09:40] LABS: Pathologist Review Reviewed
== END | disposition home or self-care (01) ==
LOC: LABSPEC 16:26
PROVIDERS: PCP Physician Assistant; Visit Provider Internal Medicine Rheumatology
DX: L40.59 Other psoriatic arthropathy (principal); M79.7 Fibromyalgia; Z79.899 Other long term (current) drug therapy
CPT/HCPCS: 87070; 87075; 87205; 89050; 89051; 89060

== ENCOUNTER → 2023-12-04 | Outpatient (CLI) | payer MEDICARE, SELFPAY ==
[2023-12-04 17:34] LABS: Absolute Lymphocyte Count 2.12 X10^3/uL (0.83-4.51); Absolute Neutrophil Count 3.2 X10^3/uL (2.0-7.7); Basophil# 0.06 X10^3/uL; Basophil% 0.9 % (0-1); Eosinophil# 0.43 X10^3/uL; Eosinophils% 6.3 % (0-5); Hematocrit 38.8 % (40-54); Hemoglobin 12.7 g/dL (13.0-16.5); Lymphocyte # 2.12 X10^3/ul (0.83-4.51); Lymphocyte % 31.2 % (19-41); Mean Corp Hgb Conc 32.7 g/dL (32-36); Mean Corpuscular Volume 94.6 fL (80-94); Mean Platelet Vol. 10.4 fl (6.2-12.0); Monocyte# 0.93 X10^3/uL; Monocyte% 13.7 % (0-10); NRBC Flagged by Analyzer 0 % (0-5); Neutrophil # 3.23 X10^3/uL (2.7-7.7); Neutrophil % 47.6 % (47-70); Platelet Count 247 K/mm3 (150-450); RBC Distribution Width CV 12.5 % (11.6-14.6); RBC Distribution Width SD 43.4 fl (35.1-43.9); White Blood Count 6.8 K/mm3 (4.4-11.0)
[2023-12-04 18:30] LABS: AST(SGOT) 21 U/L (15-37); Alanine Aminotransfer ALT/SGPT 19 U/L (16-61); Albumin, Serum 3.6 g/dL (3.2-5.0); Alkaline Phosphatase 63 U/L (45-117); Anion Gap 6 (5-15); BUN 18 mg/dL (7-18); BUN/Creat Ratio 12.4 RATIO (10-20); Calcium,Total 8.7 mg/dL (8.5-10.1); Chloride 107 mmol/L (98-107); Creatinine, Serum 1.45 mg/dL (0.70-1.30); EST Glomerular Filtration Rate 52 mL/min (>60); Est Glom Filt Rate - Afr Amer 62 mL/min (>60); Globulin 3.6 g/dL (2.2-4.2); Glucose 89 mg/dL (74-106); Protein, Total 7.2 g/dL (6.4-8.2); Sodium Level 141 mmol/L (136-145)
== END | disposition home or self-care (01) ==
LOC: MTLAB 15:37
PROVIDERS: PCP Physician Assistant; Referring Provider Internal Medicine Rheumatology; Visit Provider Internal Medicine Rheumatology
DX: L40.59 Other psoriatic arthropathy (principal); M79.7 Fibromyalgia; M21.40 Flat foot [pes planus] (acquired), unspecified foot; H33.8 Other retinal detachments; G47.33 Obstructive sleep apnea (adult) (pediatric); I34.0 Nonrheumatic mitral (valve) insufficiency; F32.9 Major depressive disorder, single episode, unspecified; Z79.899 Other long term (current) drug therapy
CPT/HCPCS: 36415; 80053; 85025

== ENCOUNTER → 2024-01-01 | Outpatient (CLI) | payer MEDICARE, SELFPAY ==
[2024-01-01 09:18] LABS: Erythrocyte Sedimentation Rate 2 mm/hr (0-20)
--- OUTSIDE RECORDS SUMMARY | 2024-01-01 09:28 | XMS RPT_ITS | CCD ---
Author Name Unknown Address [address] [place] [address] Organization [facility] Care Team Providers Care Land Surveyor Name Role Phone DEYA TAM Unavailable Unavailable DEYA TAM Unavailable Unavailable Juana Wang PA-C Primary Care Provider [phone] Juana Wang PA-C Primary Care Provider [phone] Juana Wang PA-C Primary Care Provider [phone] Juana WANG Referring Unavailable Juana WANG Primary Care Unavailable Juana WANG Primary Care Unavailable Juana WANG Attending Unavailable Juana WANG Primary Care Unavailable GABRIELA FARIA Referring Unavailable Juana WANG Primary Care Unavailable Juana WANG Attending Unavailable Juana WANG Primary Care Unavailable Allergies Allergy Classification Reported Allergen(s) Allergy Type Date of Onset Reaction(s) Facility (20 sources) codeine; Translations: [CODEINE] Drug Allergy 0 Mental Status Change [facility] Repository (20 sources) methotrexate; Translations: [METHOTREXATE] Drug Allergy 7 Rash [facility] Repository (20 sources) pseudoephedrine; Translations: [PSEUDOEPHEDRINE ] Drug Allergy 0 Intolerance [facility] Repository (20 sources) SUMAtriptan; Translations: [SUMATRIPTAN SUCCINATE] Drug Allergy 0 Intolerance [facility] Repository Medications Current Medications Medication Drug Class(es) Dates Sig (Normalized) Sig (Original) cephalexin 500 mg oral capsule (1 source) Cephalosporin Antibacterial Start: 11-29-2022 End: 12-06-2022 take 1 capsule by mouth three times daily cephALEXin (KEFLEX) 500 mg capsule Take 1 capsule by mouth three times daily for 7 days. 21 capsule 0 11/29/2022 12/06/2022 Active Completed/Discontinued Medications Medication Drug Class(es) Dates Sig (Normalized) Sig (Original) [id number] 200 actuat albuterol 0.09 mg/actuat metered dose inhaler (18 sources) beta2-Adrenergic Agonist Start: 08-25-2019 take 2 puff(s) by inhalation every six hours as needed albuterol HFA (PROAIR HFA) 90 mcg/actuation inhaler Indications: Bronchitis Inhale 2 Puffs as instructed every 6 hours as needed. 1 Inhaler 0 08/25/2019 Active Problems Active Problems Problem Classification Problem Date Documented Date Episodic/Chronic Aortic; peripheral; and visceral artery aneurysms (20 sources) Dilatation of aorta; Translations: [Aortic ectasia, unspecified site] Onset: 09-22-2019 09-22-2019 Chronic Asthma (20 sources) Mild persistent asthma; Translations: [Mild persistent asthma, uncomplicated] Onset: 02-14-2018 02-14-2018 Chronic Chronic kidney disease (20 sources) Chronic kidney disease stage 3A ; Translations: [Chronic renal failure, stage 3a] Onset: 12-15-2021 12-15-2021 Chronic Deficiency and other anemia (1 source) Iron deficiency anemia, unspecified; Translations: [Iron deficiency anemia, unspecified iron deficiency anemia type] Onset: 12-20-2023 Episodic Disorders of lipid metabolism (20 sources) Hyperlipidemia; Translations: [Hyperlipidemia, unspecified] Onset: 04-24-2012 04-24-2012 Chronic Essential hypertension (20 sources) Hypertensive disorder; Translations: [Essential (primary) hypertension] Onset: 06-01-2010 06-01-2010 Chronic Gout and other crystal arthropathies (2 sources) 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; Translations: [Idiopathic chronic gout, unspecified ankle and foot, without tophus (tophi)] Chronic Heart valve disorders (20 sources) Mitral valve regurgitation; Translations: [Nonrheumatic mitral (valve) insufficiency] Onset: 02-02-2010 12-15-2021 Chronic Mood disorders (19 sources) Depressive disorder; Translations: [Depression] Onset: 02-02-2010 02-02-2010 Chronic Mycoses (1 source) Onychomycosis; Translations: [Tinea unguium] Episodic Nutritional deficiencies (19 sources) Vitamin D deficiency; Translations: [Vitamin D deficiency, unspecified] Onset: 02-06-2010 02-06-2010 Chronic Other endocrine disorders (5 sources) Hypogonadotropic hypogonadism; Translations: [Testicular hypofunction] Onset: 09-05-2010 11-09-2010 Chronic Other endocrine disorders (13 sources) Male hypogonadism; Translations: [Testicular hypofunction] Onset: 09-05-2010 11-09-2010 Chronic Other inflammatory condition of skin (20 sources) Psoriatic arthritis; Translations: [Arthropathic psoriasis, unspecified] Onset: 07-20-2014 11-27-2021 Chronic Other inflammatory condition of skin (1 source) Arthropathic psoriasis, unspecified; Translations: [Psoriatic arthritis (HCC)] Onset: 11-28-2021 Chronic Other non-traumatic joint disorders (1 source) Pain in right knee; Translations: [Pain in joint, lower leg] Episodic Other non-traumatic joint disorders (1 source) Shoulder pain; Translations: [Pain in right shoulder] Episodic Other nutritional; endocrine; and metabolic disorders (4 sources) Body mass index 40+ - severely obese; Translations: [Body mass index (BMI) 40.0-44.9, adult] Onset: 06-16-2023 06-16-2023 Chronic Other nutritional; endocrine; and metabolic disorders (1 source) Body mass index (BMI) 40.0-44.9, adult; Translations: [Body mass index (BMI) 40.0-44.9, adult (HCC)] Onset: 06-16-2023 Chronic Other skin disorders (1 source) Nail discoloration; Translations: [Other nail disorders] Episodic Other skin disorders (1 source) Onycholysis; Translations: [Onycholysis] Episodic Other upper respiratory disease (19 sources) Chronic rhinitis; Translations: [Chronic rhinitis] Onset: 03-03-2010 03-03-2010 Chronic Other upper respiratory disease (18 sources) Mixed rhinitis; Translations: [Chronic rhinitis] Onset: 02-14-2018 02-14-2018 Chronic Residual codes; unclassified (20 sources) Obstructive sleep apnea syndrome; Translations: [Obstructive sleep apnea (adult) (pediatric)] Onset: 03-03-2010 11-27-2021 Chronic Residual codes; unclassified (1 source) Obstructive sleep apnea (adult) (pediatric); Translations: [JAS (obstructive sleep apnea)] Onset: 11-27-2021 Chronic Residual codes; unclassified (1 source) Pain; Translations: [Pain, unspecified] 08-31-2023 Episodic Respiratory failure; insufficiency; arrest (adult) (1 source) Respiratory failure; insufficiency; arrest (adult); Translations: [Chronic renal failure, stage 3a (HCC)] Onset: 12-15-2021 Schizophrenia and other psychotic disorders (20 sources) Paranoid disorder; Translations: [Delusional disorders] Onset: 04-02-2013 04-02-2013 Chronic Skin and subcutaneous tissue infections (1 source) Paronychia of right thumb; Translations: [Cellulitis of right finger] Episodic Unclassified (18 sources) Hypogonadism; Translations: [Hypogonadism] Onset: 06-26-2010 06-26-2010 Past or Other Problems Problem Classification Problem Date Documented Da te Episodic/Chronic Abdominal hernia (19 sources) Unilateral inguinal hernia, without obstruction or gangrene, not specified as recurrent; Translations: [Inguinal hernia] Onset: 08-29-2017 08-29-2017 Episodic Allergic reactions (4 sources) Other specified dermatitis; Translations: [Unspecified pruritic disorder] Onset: 03-13-2018 03-13-2018 Episodic Other and unspecified benign neoplasm (18 sources) Benign neoplasm of colon; Translations: [Benign neoplasm of colon, unspecified] Onset: 05-12-2010 10-07-2017 Episodic Other connective tissue disease (18 sources) Muscle pain; Translations: [Myalgia, unspecified site] Onset: 03-03-2010 03-03-2010 Episodic Other gastrointestinal disorders (18 sources) Diarrhea; Translations: [Diarrhea, unspecified] Onset: 05-12-2010 05-12-2010 Episodic Other inflammatory condition of skin (14 sources) Pruritus of skin; Translations: [Pruritus, unspecified] Onset: 03-13-2018 03-13-2018 Episodic Residual codes; unclassified (1 source) Pain, unspecified; Translations: [Pain] Onset: 08-31-2023 Episodic Spondylosis; intervertebral disc disorders; other back problems (18 sources) Thoracic and lumbosacral neuritis; Translations: [Thoracic or lumbosacral neuritis or radiculitis, unspecified] Onset: 06-22-2014 06-22-2014 Episodic Results Test Name Value Interpretation Reference Range [facility] ity Vital Signs Date Time Vital Sign Value Performing Clinician Marilyn rajan 08-31-2023 08:40-0400 Body temperature 97.7 [degF] Gabriela Faria APRN.SHELLFISH MANAGER Work Phone: [facility] 08-31-2023 08:40-0400 Body weight 138.98 kg Gabriela Faria APRN.SHELLFISH MANAGER Work Phone: [facility] 08-31-2023 08:40-0400 Diastolic blood pressure 84 mm[Hg] Gabriela Faria APRN.SHELLFISH MANAGER Work Phone: [facility] 08-31-2023 08:40-0400 Heart rate 71 /min Gabriela Faria APRN.SHELLFISH MANAGER Work Phone: [facility] 08-31-2023 08:40-0400 Respiratory rate 16 /min Gabriela Faria APRN.SHELLFISH MANAGER Work Phone: [facility] 08-31-2023 08:40-0400 SaO2% (BldA) [Mass fraction] 97 % Gabriela Faria APRN.SHELLFISH MANAGER Work Phone: [facility] 08-31-2023 08:40-0400 Systolic blood pressure 148 mm[Hg] Gabriela Faria APRN.SHELLFISH MANAGER Work Phone: [facility] 06-14-2023 14:54-0400 Body weight 140.16 kg NA Wang PA-C Work Phone: [facility] 06-14-2023 14:54-0400 Diastolic blood pressure 72 mm[Hg] NA Wang PA-C Work Phone: [facility] 06-14-2023 14:54-0400 Heart rate 60 /min NA Wang PA-C Work Phone: [facility] 06-14-2023 14:54-0400 Respiratory rate 16 /min NA Wang PA-C Work Phone: [facility] 06-14-2023 14:54-0400 SaO2% (BldA) [Mass fraction] 97 % NA Wang PA-C Work Phone: [facility] 06-14-2023 14:54-0400 Systolic blood pressure 138 mm[Hg] NA Wang PA-C Work Phone: [facility] 12-17-2022 14:02-0500 Body weight 140.16 kg NA Wang PA-C Work Phone: [facility] 12-17-2022 14:02-0500 Diastolic blood pressure 68 mm[Hg] NA Wang PA-C Work Phone: [facility] 12-17-2022 14:02-0500 Heart rate 65 /min NA Wang PA-C Work Phone: [facility] 12-17-2022 14:02-0500 Respiratory rate 20 /min NA Wang PA-C Work Phone: [facility] 12-17-2022 14:02-0500 SaO2% (BldA) [Mass fraction] 97 % NA Wang PA-C Work Phone: [facility] 12-17-2022 14:02-0500 Systolic blood pressure 132 mm[Hg] NA Wang PA-C Work Phone: [facility] 11-29-2022 19:47-0500 Body temperature 97.59 [degF] Ava Athy PA-C Work Phone: [facility] 11-29-2022 19:47-0500 Body weight 141.88 kg Ava Athy PA-C Work Phone: [facility] 11-29-2022 19:47-0500 Diastolic blood pressure 76 mm[Hg] Ava Athy PA-C Work Phone: [facility] 11-29-2022 19:47-0500 Heart rate 70 /min Ava Athy PA-C Work Phone: [facility] 11-29-2022 19:47-0500 Respiratory rate 18 /min Ava Athy PA-C Work Phone: [facility] 11-29-2022 19:47-0500 SaO2% (BldA) [Mass fraction] 98 % Ava Athy PA-C Work Phone: [facility] 11-29-2022 19:47-0500 Systolic blood pressure 140 mm[Hg] Ava Athy PA-C Work Phone: [facility] 10-22-2022 13:57-0500 Body temperature 98.6 [degF] NA Wang PA-C Work Phone: [facility] 10-22-2022 13:57-0500 Body weight 140.16 kg NA Wang PA-C Work Phone: [facility] 10-22-2022 13:57-0500 Diastolic blood pressure 70 mm[Hg] NA Wnag PA-C Work Phone: [facility] 10-22-2022 13:57-0500 Heart rate 74 /min NA Wang PA-C Work Phone: [facility] 10-22-2022 13:57-0500 Respiratory rate 16 /min NA Wang PA-C Work Phone: [facility] 10-22-2022 13:57-0500 SaO2% (BldA) [Mass fraction] 97 % NA Wang PA-C Work Phone: [facility] 10-22-2022 13:57-0500 Systolic blood pressure 124 mm[Hg] NA Wang PA-C Work Phone: [facility] 06-15-2022 14:11-0400 Body temperature 98.71 [degF] NA Wang PA-C Work Phone: [facility] 06-15-2022 14:11-0400 Body weight 139.53 kg NA Wang PA-C Work Phone: [facility] 06-15-2022 14:11-0400 Diastolic blood pressure 78 mm[Hg] NA Wang PA-C Work Phone: [facility] 06-15-2022 14:11-0400 Heart rate 74 /min NA Wang PA-C Work Phone: [facility] 06-15-2022 14:11-0400 Respiratory rate 18 /min VENUS Wang PA-C Work Phone: [facility] 06-15-2022 14:11-0400 SaO2% (BldA) [Mass fraction] 96 % VENUS Wang PA-C Work Phone: [facility] 06-15-2022 14:11-0400 Systolic blood pressure 138 mm[Hg] VENUS SWAIN-Eleuterio Work Phone: [facility] Encounters Encounter Date Encounter Type Care Provider Facility Start: 12-20-2023 End: 12-21-2023 [facility] Start: 08-31-2023 End: 08-31-2023 [facility] Start: 08-31-2023 End: 08-31-2023 Patient encounter procedure Gabriela Faria APRN.CNP Work Phone: [facility] Procedures Date Procedure Procedure Detail Performing Clinician Start: 06-11-2023 Lipid 1996 panel - S hadley or Plasma Gabriela Faria APRN.SHELLFISH MANAGER Work Phone: Start: 11-20-2019 Colonoscopy VENUS Wang PA-C Work Phone: Plan of Treatment Date Care Activity Detail Author Start: 10-24-2031 Urine microalbumin profile [facility] Start: 06-11-2028 Lipid 1996 panel - Serum or Plasma Lipid Screening [facility] Start: 06-11-2028 LIPID SCREEN LIPID SCREEN [facility] Start: 12-06-2027 LIPID SCREEN LIPID SCREEN [facility] Start: 02-14-2027 PROSTATE CANCER SCREENING DISCUSSION PROSTATE CANCER SCREENING DISCUSSION [facility] Start: 12-14-2026 LIPID SCREEN LIPID SCREEN [facility] Start: 02-14-2025 DIABETES SCREEN DIABETES SCREEN [facility] Start: 02-14-2025 Diabetes Screening Diabetes Screening [facility] Start: 06-14-2024 ANNUAL PCP TEAM CHRONIC DISEASE VISIT ANNUAL PCP TEAM CHRONIC DISEASE VISIT [facility] Start: 12-17-2023 ANNUAL PCP TEAM CHRONIC DISEASE VISIT ANNUAL PCP TEAM CHRONIC DISEASE VISIT [facility] Start: 10-22-2023 ANNUAL PCP TEAM CHRONIC DISEASE VISIT ANNUAL PCP TEAM CHRONIC DISEASE VISIT [facility] Start: 10-22-2023 BP CONTROLLED (<130/80) BP CONTROLLED (<130/80) [facility] Start: 08-02-2023 Influenza vaccination [facility] Start: 06-15-2023 ANNUAL PCP TEAM CHRONIC DISEASE VISIT ANNUAL PCP TEAM CHRONIC DISEASE VISIT [facility] Start: 06-10-2023 End: 08-10-2023 Lipid 1996 panel - Serum or Plasma LIPID PANEL BASIC Lab Routine Mixed hyperlipidemia Expected: 06/10/2023, Expires: 08/10/2023 [facility] Work Phone: Immunizations Immunization Date Immunization Notes Care Provider Fa cili 2022 pneumococcal (PCV20) vaccine, 20 valent (PREVNAR 20) Ava Dodson PA-C Work Phone: [facility] 08-18-2022 COVID-19 booster vaccine, age 12+ yr, bivalent (brotipsNTNewsBasis) NA Wang PA-C Work Phone: [facility] 08-18-2022 influenza, high dose seasonal, preservative-free NA Wang PA-C Work Phone: [facility] 08-18-2022 influenza, high-dose , quadrivalent vaccine (FLUZONE HIGH DOSE QUADRIVALENT) NA Wang PA-C Work Phone: [facility] 08-18-2022 influenza virus vaccine, unspecified formulation Gabriela Faria APRN.CNP Work Phone: [facility] 03-16-2022 COVID-19 vaccine, ag e 12+ yr ([employer]-BIONTECH - SPENCER TOP) NA Wang PA-C Work Phone: [facility] 11-28-2021 zoster vaccine recombinant NA Wang PA-C Work Phone: [facility] 2021 pneumococcal conjuga te vaccine, 13 valent NA Wang PA-C Work Phone: [facility] 10-24-2021 tetanus toxoid, redu malorie diphtheria toxoid, and acellular pertussis vaccine, adsorbed NA Wang PA-C Work Phone: [facility] 09-14-2021 zoster vaccine recombinant NA Wang PA-C Work Phone: [facility] 08-25-2021 Seasonal, quadrivale nt, recombinant, injectable influenza vaccine, preservative free NA Wang PA-C Work Phone: [facility] 03-11-2021 COVID-19 vaccine, ag e 12+ yr (PFIZER-BIONTECH - [facility]) NA Wang PA-C Work Phone: [facility] 02-18-2021 COVID-19 vaccine, ag e 12+ yr (PFIZER-BIONTECH - PURPLE TOP) NA Wang PA-C Work Phone: [facility] 08-15-2020 influenza, injectabl e, quadrivalent, preservative free NA Wang PA-C Work Phone: [facility] 08-15-2020 influenza, seasonal, injectable NA Wang PA-C Work Phone: [facility] 08-11-2019 influenza, seasonal, injectable NA Wang PA-C Work Phone: [facility] Work Phone: 08-11-2019 Seasonal, quadrivale nt, recombinant, injectable influenza vaccine, preservative free NA Wang PA-C Work Phone: [facility] 03-10-2019 pneumococcal conjuga te vaccine, 13 valent NA Wang PA-C Work Phone: [facility] Work Phone: 08-22-2018 influenza, injectabl e, quadrivalent, contains preservative NA Wang PA-C Work Phone: [facility] 08-22-2018 influenza, injectabl e, quadrivalent, preservative free NA Wang PA-C Work Phone: [facility] 08-15-2017 influenza, injectabl e, quadrivalent, contains preservative NA Wang PA-C Work Phone: [facility] 08-15-2017 influenza, injectabl e, quadrivalent, preservative free NA Wang PA-C Work Phone: [facility] 09-09-2016 influenza, injectabl e, quadrivalent, contains preservative NA Wang PA-C Work Phone: [facility] Work Phone: 11-03-2015 influenza, seasonal, injectable NA Wang PA-C Work Phone: [facility] 11-03-2015 influenza, seasonal, injectable, preservative free NA Wang PA-C Work Phone: [facility] 10-29-2011 tetanus toxoid, redu malorie diphtheria toxoid, and acellular pertussis vaccine, adsorbed NA Wang PA-C Work Phone: [facility] Payers Date Payer Category Payer Medicare [employer] [place] [id number] 2020-Present [phone] [address] [place] [address] O [id number] 2020 Medicare [employer] [place] [place] [id number] 2020-Present [phone] [address] [place] [address] [facility] [id number] 2020 Medicare [id number] Social History Date Type Detail Facility Start: 10-03-2011 Tobacco smoking status NHIS Never smoked tobacco [facility] Start: 02-16-2022 End: 08-31-2023 Alcohol intake Current non-drinker of alcohol (finding) [facility] Start: 03-13-2021 End: 12-16-2022 History SDOH Alcohol Frequency 1 [facility] Start: 03-13-2021 End: 12-16-2022 History SDOH Alcohol Std Drinks 98 [facility] Start: 03-13-2021 End: 12-16-2022 History SDOH Social Connections Phone 2 [facility] Start: 03-13-2021 End: 12-16-2022 History SDOH Social Connections Living 4 [facility] Start: 03-13-2021 End: 12-16-2022 History SDOH Physical Activity DPW 0 [facility] Start: 03-13-2021 End: 12-16-2022 History SDOH Stress 3 [facility] Start: 03-13-2021 Education 21 [facility] Start: 1955 Sex Assigned At Male [facility] Start: 02-06-2022 End: 10-22-2022 Exposure to SARS-CoV-2 (event) Not sure [facility] Start: 10-03-2011 Tobacco use and exposure Smokeless tobacco non-user [facility] Work Phone: Start: 12-15-2022 End: 06-14-2023 History of Social function [facility] Start: 12-15-2022 End: 06-14-2023 Social connection and isolation panel [facility] How often do you get together with friends or relatives? Patient refused [facility] Do you belong to any clubs or organizations such as islam groups, unions, fraTurning Art or athletic groups, or school groups? No [facility] Are you now , , , , never or living with a partner? [facility] How often to you hav e a drink containing alcohol? Never [facility] How hard is it for y ou to pay for the very basics like food, housing, medical care, and heating Somewhat hard [facility] Do you feel stress - tense, restless, nervous, or anxious, or unable to sleep at night because your mind is troubled all the time - these days [OSQ] Only a little [facility] (I/We) worried whestacie er (my/our) food would run out before (I/we) got money to buy more. Sometimes true [facility] The food that (I/we) bought just didn't last, and (I/we) didn't have money to get more. Never true [facility] Start: 08-02-2020 Gender identity Identifies as male gender (finding) [facility] Start: 08-02-2020 Sexual orientation Heterosexual (finding) [facility] Medical Equipment Procedure Code Equipment Code Equipment Origin al Text Equipment Identifier Dates Mesh Bard Perfix 1.9in Large Polypropylene 1.6in Surgical Plug Monofilament - [id number] Start: 09-11-2017 Clinical Notes 03-27-2022 to 12-20-2023 Patient InstructionsOmiUlises aguilarGabrielaVALENTÍN chauhan.SHELLFISH MANAGER - 08/31/2023 8:47 AM EDTTelephone Encounter - Maximiliano Mosher LPN - 08/06/2023 9:44 AM Juana Dutta PA-C - 06/14/2023 3:00 PM EDT Note Date & Type Note Facility 12-20-2023 Note HNO ID: [id number] Author: Juana WANG PA-C Service: ? Author Type: Physician Call Center Manager Type: Progress Notes Filed: 12/20/2023 17:28 Note Text: 68 year old male with c/o Conjunctivitis since Saturday night Saw public health training assistant next day for routine appointment Tlsxlcor-Wjjcqpnmh-eesvbmwu 3.5mg-10,000u/ mL-0.1% eye drops. Some congestion over last few weeks. Hard to breathe even with CPAP though adjusts, slept sitting up. Breathing issues resolved. No cough or wheezing. Occasional rattle in chest: shifts over and then doesn't bother Knee got much worse after last visit. States messed around with meds , did home repairs with a lot of bending and squatting which seemed to help. Suddenly one day better. Went to Dr. Aiken: steroid injection in right knee with improvement, Fluid cam back but then suddenly resolved. Did a lot of cleaning in house, then pain came back. A little space. Cat in house finally found it 5 cats in home. Nonrheumatic aortic valve insufficiency (primary encounter diagnosis) Nonrheumatic mitral valve regurgitation Aortic dilatation (hcc) Primary hypertension Mixed hyperlipidemia Cardiovascular interval hx: 06/19/2022 echo: LV size and LVSF WNL. No myocardial wall dysfunction RV size and RVSF WNL. RVSP 34mmHG , RA 3mmHg LA +RA size WNL Aorta : sinus 3.7cm. mid ascending aorta 3.5cm 09/28/19 echo: LV size +LVSF WNL, EF 62% RV size +RVSF WNL. No valvular abnormalities. Aortic measurements: Sinus: 3.4 cm. Sinotubular junction 2.6 cm. Mid ascending aorta 3.7 12/15/2009 echo: LV size+LVSF WNL, EF 55%; stage 1 LVDD. RV size + RVSF WNL. 1+ MR, TR. RVSP 40mmHg. Prominent aortic sinus 3.7cm, ascending aorta 3.6cm Current meds: Amlodipine 5mg daily KCL ER 20mEq daily Use of NTG: No Chest pain, arm, jaw pain, neck, or upper back pain suggestive of angina: No. SOB: Notes sometimes feels like he wouldn't be able to breathe if fell asleep so stayed awake. Dyspnea with exertion: No orthopnea: No Cough : No racing or irregular heartbeats: No palpitations: No syncopal sx: No Headache: No Unexplainable fatigue No Leg swelling: No Nausea: No diaphoresis: No Heartburn: No Claudication: No Smoking: No Following Low cholesterol, high fiber diet? Okay: better than it has been in some ways: eats spinach, beets, instead of sweets. Using provolone sticks- doing better now since not leaving house. Battery on van. If on statin: muscle aches? No If on statin: GI sx or diarrhea? No Additional history none. Lab review: Last 3 Encounter BP Readings: Date: BP: 12/20/2023 136/80 08/31/2023 148/84 06/14/2023 138/72 12/04/2023 lab work [facility]: GLU 89-BUN 18-CRE 1.45H, eGFR 52-TP 7.2-LV 3.6-CL 107-CO2 28.0-A/G 1.0-Ca 8.7-ALT 19-AST 21-ALP 63-T. bili 0.50-NA 141-K4.0-CL 107-CO2 28.0-AG 6 Outside labs [facility]: 06/11/2023 lipid: TC 168-TRIG 125-HDL 35-non-HDL 133-VLDL 25-TC: HDL ratio 4.80-LDL 108-LDL: HDL ratio 3.09 12/04/2023 CBC W6.8-hgb12.7-HCT 38.8 12/06/2022 lipid: TC 210-TRIG 161-HDL 37-non-HDL 173-VLDL 32-TC: HDL ratio 5.68-LDL 141-LDL: HDL ratio 3.81 Component Latest Ref Rng AND Units 12/14/2021 02/14/2022 02/14/2022 12:17 PM 12:17 PM WBC 3.70 - 11.00 k/uL 7.84 7.55 RBC 4.20 - 6.00 m/uL 4.48 4.23 Hemoglobin 13.0 - 17.0 g/dL 14.1 13.5 Hematocrit 39.0 - 51.0 % 42.8 39.1 MCV 80.0 - 100.0 fL 95.5 92.4 MCH 26.0 - 34.0 pg 31.5 31.9 MCHC 30.5 - 36.0 g/dL 32.9 34.5 RDW-CV 11.5 - 15.0 % 12.1 12.8 Platelet Count 150 - 400 k/uL 282 268 MPV 9.0 - 12.7 fL 10.3 10.2 Neut% % 41.1 56.3 Abs Neut (ANC) 1.45 - 7.50 k/uL 3.20 4.25 Lymph% % 42.2 28.2 Abs Lymph 1.00 - 4.00 k/uL 3.31 2.13 [place]% % 11.2 10.2 Abs [place] <0.87 k/uL 0.88 (H) 0.77 Eosin% % 4.6 4.1 Abs Eosin <0.46 k/uL 0.36 0.31 Baso% % 0.9 0.7 Abs Baso <0.11 k/uL 0.07 0.05 Immature Gran % % 0.5 IMMATURE GRANS (ABS) <0.10 k/uL 0.04 NRBC /100 WBC 0.0 Absolute nRBC <0.01 k/uL <0.01 <0.01 DTYPE Auto Nucleated Reds 0 /100 WBC 0.0 Diff Type Auto Diff Protein, Total 6.3 - 8.0 g/dL 6.5 6.8 Albumin 3.9 - 4.9 g/dL 4.3 4.1 Calcium 8.5 - 10.2 mg/dL 9.2 8.5 8.5 Bilirubin, Total 0.2 - 1.3 mg/dL 0.4 0.3 Alkaline Phosphatase 38 - 113 U/L 82 81 AST 14 - 40 U/L 31 30 Glucose 74 - 99 mg/dL 97 101 (H) 101 (H) BUN 9 - 24 mg/dL 13 10 10 Creatinine 0.73 - 1.22 mg/dL 1.31 (H) 1.28 (H) 1.28 (H) Sodium 136 - 144 mmol/L 138 139 139 Potassium 3.7 - 5.1 mmol/L 3.8 4.3 4.3 Chloride 97 - 105 mmol/L 101 104 104 CO2 22 - 30 mmol/L 26 26 26 Anion Gap 9 - 18 mmol/L 11 9 9 ALT 10 - 54 U/L 42 32 eGFR- >60 eGFR-All Other Races . 55 eGFR >=60 mL/min/1.73mA? 62 62 Mild persistent asthma, unspecified whether complicated Jas (obstructive sleep apnea) ahi 10.8 Mild persistent asthma without complication Welding Technician: none. Interval history: seemed to improve after antibiotics for nail infection. (more content not included)... [facility] 08-31-2023 Note HNO ID: [id number] Author: Waylon Borges RT(R) Service: ? Author Type: Technologist Type: Progress Notes Filed: 08/31/2023 9:05 AM Note Text: Radiology Service Progress Note PATIENT NAME: Salud Mesa DATE OF SERVICE: August 31, 2023 TIME: 8:52 AM PATIENT IDENTITY VERIFICATION COMPLETED USING TWO (2) IDENTIFIERS: Name and Date of confirmed by patient verbally. FALL SCREENING: Has the patient had 2 falls in the last year or 1 fall with injury or currently using an Ambulatory Assistive Device (Walker, Cane, Wheelchair, Crutches, etc.)? No PATIENT GENDER DATA: Male PATIENT RELEVANT IMPLANT DATA REVIEWED: Not Applicable RADIOLOGY DEPARTMENT: General X-ray: Exam(s) Completed: Lower Extremity X-Ray(s): Knee, AP / Lat / Tunne / Merchant Right and Wt. Bearing PERIPHERAL IV DATA: Not applicable SIGNED BY: RT Dave(R) August 31, 2023 8:52 AM [facility] 08-31-2023 Note HNO ID: [id number] Author: Gabriela Faria APRN.SHELLFISH MANAGER Service: ? Author Type: Nurse Practitioner Type: Progress Notes Filed: 08/31/2023 9:36 AM Note Text: Subjective Patient came in with complaints of right knee pain. Patient said it started about 12 hours ago. Patient says he was moving objects and felt something pop. Patient says he is walking with a cane. Patient says it hurts behind his knee. Patient denies any numbness tingling or shooting pain down his leg. The history is provided by the patient. No medical language specialist was used. Review of Systems Constitutional: Negative. Skin: Negative. Objective Physical Exam Constitutional: Appearance: Normal appearance. Pulmonary: Effort: Pulmonary effort is normal. Musculoskeletal: Legs: Comments: Patient says he is experiencing the pain in the area marked above. Nontender upon palpation no discoloration swelling or warmth noted. Neurological: Mental Status: He is alert. PAST MEDICAL HISTORY Diagnosis Date AI (aortic insufficiency) Arthritis Back pain Back pain Benign neoplasm of colon Carpal tunnel syndrome early Cataract Cavities Chronic renal failure, stage 3a (HCC) 12/15/2021 Depression Depression Diarrhea Environmental allergies Epiploic appendagitis 02/20/2022 CT ab/pel IVC Fibromyalgia early Fibromyalgia Hemorrhoid Hyperlipidemia Hypertension Migraine atypical with vision loss JAS (obstructive sleep apnea) prior use of CPAP and medications without improvement Personal history of colonic polyps Retinal detachment x 4 TMJ disorder PAST SURGICAL HISTORY Procedure Laterality Date APPENDECTOMY 05/2001 COLONOSCOPY N/A 11/14/2016 Repeat 2019 COLONOSCOPY FLX DX W/COLLJ SPEC WHEN PFRMD 11/20/2019 Colonoscopy COLSC FLX W/REMOVAL LESION BY HOT BX FORCEPS 05/12/10 COLSC FLX W/RMVL OF TUMOR POLYP LESION SNARE TQ 11/16/13 repeat due 2016 EGD TRANSORAL BIOPSY SINGLE/MULTIPLE 11/16/13 PAST SURGICAL HISTORY OF implanted lenses both eyes RPR 1ST INGUN HRNA AGE 5 YRS/> REDUCIBLE 09/11/2017 Hernia repair, inguinal right with mesh RPR COMPLEX RETINA DETACH VITRECT ANDMEMBRANE PEEL 2008, x4 (2 each side) XCAPSL CTRC RMVL INSJ IO LENS PROSTH W/O ECP 2000 ALLERGIES Codeine, Imitrex [Sumatriptan Succinate], Methotrexate, and Pseudoephedrine MEDICATIONS pravastatin (PRAVACHOL) 20 mg tabletTake 1 tablet by mouth daily at bedtime.Disp: 90 tabletRfl: 3 amLODIPine (NORVASC) 5 mg tabletTake 1 tablet by mouth once daily.Disp: 90 tabletRfl: 1 potassium chloride ER (KLOR-CON M20) 20 mEq tabletTake 1 tablet by mouth once daily.Disp: 90 tabletRfl: 3 cetirizine (ZYRTEC) 10 mg tabletTake 1 tablet by mouth once daily.Disp: 90 tabletRfl: 3 meloxicam (MOBIC) 15 mg tabletTake 1 tablet by mouth once daily. Take with food.Disp: 90 tabletRfl: 1 montelukast (SINGULAIR) 10 mg tabletTake 1 tablet by mouth daily at bedtime.Disp: 90 tabletRfl: 3 ferrous sulfate (IRON ORAL)Take 65 mg by mouth once daily.Disp: Rfl: brimonidine (ALPHAGAN) 0.2 % ophthalmic solutionUse 1 Drop in both eyes twice daily.Disp: Rfl: albuterol HFA (PROAIR HFA) 90 mcg/actuation inhalerInhale 2 Puffs as instructed every 6 hours as needed.Disp: 1 InhalerRfl: 0 CPAPCPAP 10 cmH2O, suitable mask, tubing, humidifier, filters. Lifetime supplies. Dx: 327.23 - Obstructive sleep apneaDisp: 1 DeviceRfl: 0 timolol maleate (TIMOPTIC) 0.5 % dpet1 Drop twice daily.Disp: Rfl: cholecalciferol (VITAMIN D-3) 5,000 unit tabTake 1 tablet by mouth once daily.Disp: 90 tabletRfl: 1 APREMILAST (OTEZLA ORAL)Take 1 tablet by mouth twice daily. Disp: Rfl: FAMILY HISTORY Problem Relation Age of Onset Cancer Mother 91 nonsmoker, lung cancer Detached Retina Mother other (varicose veins) Mother living age 82 Cancer Father colon, ; living age 85 Hearing Loss Father Psychiatry Father Hypertension Father Heart Father Colon Cancer Father other (cataracts) Father other (murmur) Father other (atrial fib) Father None Sister living and healthy None Brother living and healthy Hypertension Brother Psychiatry Paternal Grandmother other (cataracts) Paternal Grandmother Psychiatry Paternal Grandfather other (enlarged heart) Paternal Grandfather other (retinal detachment) Paternal Uncle and macular degeneration Social History Tobacco Use Smoking status: Never Smokeless tobacco: Never Substance Use Topics Alcohol use: No Drug use: No ASSESSMENT/PLAN: 1. Pain - ICD9: 780.96, ICD10: R52 - XR KNEE GENERAL 4V AP BOTH/PA BOTH/LAT/MERC RIGHT * * * * Physician Interpretation * * * * Right knee HISTORY: 67 years old Clinical information: Pain Pt. states he was lifting something 1 day ago and felt a snap behind his Rt knee. Pain. TECHNIQUE: Images: XR KNEE 4V AP/PA BOTH+LAT/NING RT Comparison: None. RESULT: Findings: Trace effusion. Mild patellofemoral hypertrophic spurring. N (more content not included)... [facility] 08-31-2023 Instructions Gabriela Faria APRN.RENITA - 08/31/2023 9:27 AM EDT - RICE therapy - see patient instructions for further recommendations. - F/U with PCP in 5-7 days or before if worse. - Discussed Red Flag signs and when to go to ER. - Reviewed plan of care and DC papers with patient. Verbalized understanding. documented in this encounter [facility] 08-31-2023 History of Presen t illness Narrative Images from the original note were not included. Subjective Patient came in with complaints of right knee pain. Patient said it started about 12 hours ago. Patient says he was moving objects and felt something pop. Patient says he is walking with a cane. Patient says it hurts behind his knee. Patient denies any numbness tingling or shooting pain down his leg. The history is provided by the patient. No medical language specialist was used. Review of Systems Constitutional: Negative. Skin: Negative. Objective Physical Exam Constitutional: Appearance: Normal appearance. Pulmonary: Effort: Pulmonary effort is normal. Musculoskeletal: Legs: Comments: Patient says he is experiencing the pain in the area marked above. Nontender upon palpation no discoloration swelling or warmth noted. Neurological: Mental Status: He is alert. PAST MEDICAL HISTORY Diagnosis Date AI (aortic insufficiency) Arthritis Back pain Back pain Benign neoplasm of colon Carpal tunnel syndrome early Cataract Cavities Chronic renal failure, stage 3a (HCC) 12/15/2021 Depression Depression Diarrhea Environmental allergies Epiploic appendagitis 02/20/2022 CT ab/pel IVC Fibromyalgia early Fibromyalgia Hemorrhoid Hyperlipidemia Hypertension Migraine atypical with vision loss JAS (obstructive sleep apnea) prior use of CPAP and medications without improvement Personal history of colonic polyps Retinal detachment x 4 TMJ disorder PAST SURGICAL HISTORY Procedure Laterality Date APPENDECTOMY 05/2001 COLONOSCOPY N/A 11/14/2016 Repeat 2018 COLONOSCOPY FLX DX W/COLLJ SPEC WHEN PFRMD 11/20/2019 Colonoscopy COLSC FLX W/REMOVAL LESION BY HOT BX FORCEPS 05/12/10 COLSC FLX W/RMVL OF TUMOR POLYP LESION SNARE TQ 11/16/13 repeat due 2015 EGD TRANSORAL BIOPSY SINGLE/MULTIPLE 11/16/13 PAST SURGICAL HISTORY OF implanted lenses both eyes RPR 1ST INGUN HRNA AGE 6 YRS/> REDUCIBLE 09/11/2017 Hernia repair, inguinal right with mesh RPR COMPLEX RETINA DETACH VITRECT &MEMBRANE PEEL x4 (2 each side) XCAPSL CTRC RMVL INSJ IO LENS PROSTH W/O ECP 2000 ALLERGIES Codeine, Imitrex [Sumatriptan Succinate], Methotrexate, and Pseudoephedrine MEDICATIONS pravastatin (PRAVACHOL) 20 mg tablet^Take 1 tablet by mouth daily at bedtime.^Disp: 90 tablet^Rfl: 3 amLODIPine (NORVASC) 5 mg tablet^Take 1 tablet by mouth once daily.^Disp: 90 tablet^Rfl: 1 potassium chloride ER (KLOR-CON M20) 20 mEq tablet^Take 1 tablet by mouth once daily.^Disp: 90 tablet^Rfl: 3 cetirizine (ZYRTEC) 10 mg tablet^Take 1 tablet by mouth once daily.^Disp: 90 tablet^Rfl: 3 meloxicam (MOBIC) 15 mg tablet^Take 1 tablet by mouth once daily. Take with food.^Disp: 90 tablet^Rfl: 1 montelukast (SINGULAIR) 10 mg tablet^Take 1 tablet by mouth daily at bedtime.^Disp: 90 tablet^Rfl: 3 ferrous sulfate (IRON ORAL)^Take 65 mg by mouth once daily.^Disp: ^Rfl: brimonidine (ALPHAGAN) 0.2 % ophthalmic solution^Use 1 Drop in both eyes twice daily.^Disp: ^Rfl: albuterol HFA (PROAIR HFA) 90 mcg/actuation inhaler^Inhale 2 Puffs as instructed every 6 hours as needed.^Disp: 1 Inhaler^Rfl: 0 CPAP^CPAP 10 cmH2O, suitable mask, tubing, humidifier, filters. Lifetime supplies. Dx: 327.23 - Obstructive sleep apnea^Disp: 1 Device^Rfl: 0 timolol maleate (TIMOPTIC) 0.5 % dpet^1 Drop twice daily.^Disp: ^Rfl: cholecalciferol (VITAMIN D-3) 5,000 unit tab^Take 1 tablet by mouth once daily.^Disp: 90 tablet^Rfl: 1 APREMILAST (OTEZLA ORAL)^Take 1 tablet by mouth twice daily. ^Disp: ^Rfl: FAMILY HISTORY Problem Relation Age of Onset Cancer Mother 91 nonsmoker, lung cancer Detached Retina Mother other (varicose veins) Mother living age 82 Cancer Father colon, ; living age 85 Hearing Loss Father Psychiatry Father Hypertension Father Heart Father Colon Cancer Father other (cataracts) Father other (murmur) Father other (atrial fib) Father None Sister living and healthy None Brother living and healthy Hypertension Brother Psychiatry Paternal Grandmother other (cataracts) Paternal Grandmother Psychiatry Paternal Grandfather other (enlarged heart) Paternal Grandfather other (retinal detachment) Paternal Uncle and macular degeneration Social History Tobacco Use Smoking status: Never Smokeless tobacco: Never Substance Use Topics Alcohol use: No Drug use: No ASSESSMENT/PLAN: 1. Pain - ICD9: 780.96, ICD10: R52 - XR KNEE GENERAL 4V AP BOTH/PA BOTH/LAT/MERC RIGHT * * * * Physician Interpretation * * * * Right knee HISTORY: 67 years old Clinical information: Pain Pt. states he was lifting something 1 day ago and felt a snap behind his Rt knee. Pain. TECHNIQUE: Images: XR KNEE 4V AP/PA BOTH+LAT/NING RT Comparison: None. RESULT: Findings: Trace effusion. Mild patellofemoral hypertrophic spurring. No joint space narrowing, fracture or subluxation. IMPRESSION IMPRESSION: Trace effusion with mild patellofemoral degenerative spurring. Jewish History Professor: BRANDEN Transcribe Date/Time: Aug 31 2023 9:21A Dictated by : DEYVI DOUGLAS MD Was educated to rest ice elevate take Tylenol for a week or 2 to see if the pain alleviates. If the pain does not alleviate patient should follow-up with orthopedics. Patient was okay with this care plan. Gabriela Travis, SIGNS AND DISPLAYS SALESPERSON.RENITA documented in this encounter [facility] 08-06-2023 Miscellaneous Notes Patient phones requesting refills as follows: Requested Prescriptions Pending Prescriptions Disp Refills pravastatin (PRAVACHOL) 20 mg tablet 90 tablet 0 Sig: Take 1 tablet by mouth daily at bedtime. MATHEUS 06/14/23 NOV 12/20/23 Please review and advise. Maximiliano Mosher LPN documented in this encounter [facility] 06-14-2023 Note HNO ID: [id number] Author: Juana Wang PA-C Service: ? Author Type: Physician Call Center Manager Type: Progress Notes Filed: 06/16/2023 9:51 PM Note Text: 67 year old male with c/o 6 month follow up Knee got much worse after lat visit. States messed around with meds , did home repairs with a lot of bending and squatting which seemed to help. Suddenly one day better. Has rash on left elbow from bed bugs. Nonrheumatic aortic valve insufficiency (primary encounter diagnosis) Nonrheumatic mitral valve regurgitation Aortic dilatation (hcc) Primary hypertension Mixed hyperlipidemia Cardiovascular interval hx: 06/19/2022 echo: LV size and LVSF WNL. No myocardial wall dysfunction RV size and RVSF WNL. RVSP 34mmHG , RA 3mmHg LA +RA size WNL Aorta : sinus 3.7cm. mid ascending aorta 3.5cm 09/28/19 echo: LV size +LVSF WNL, EF 62% RV size +RVSF WNL. No valvular abnormalities. Aortic measurements: Sinus: 3.4 cm. Sinotubular junction 2.6 cm. Mid ascending aorta 3.7 12/15/2009 echo: LV size+LVSF WNL, EF 55%; stage 1 LVDD. RV size + RVSF WNL. 1+ MR, TR. RVSP 40mmHg. Prominent aortic sinus 3.7cm, ascending aorta 3.6cm Current meds: Amlodipine 5mg daily KCL ER 20mEq daily Use of NTG: No Chest pain, arm, jaw pain, neck, or upper back pain suggestive of angina: No. SOB: Notes sometimes feels like he wouldn't be able to breathe if fell asleep so stayed awake. Dyspnea with exertion: No orthopnea: No Cough : No racing or irregular heartbeats: No palpitations: No syncopal sx: No Headache: No Unexplainable fatigue No Leg swelling: No Nausea: No diaphoresis: No Heartburn: No Claudication: No Smoking: No Following Low cholesterol, high fiber diet? Okay: better than it has been in some ways: eats spinach, beets, instead of sweets If on statin: muscle aches? No If on statin: GI sx or diarrhea? No Additional history none. Lab review: Last 3 Encounter BP Readings: Date: BP: 06/14/2023 138/72 12/17/2022 132/68 11/29/2022 140/76 Outside labs [facility]: 06/11/2023 lipid: TC 168-TRIG 125-HDL 35-non-HDL 133-VLDL 25-TC: HDL ratio 4.80-LDL 108-LDL: HDL ratio 3.09 12/06/2022 lipid: TC 210-TRIG 161-HDL 37-non-HDL 173-VLDL 32-TC: HDL ratio 5.68-LDL 141-LDL: HDL ratio 3.81 Component Latest Ref Rng AND Units 12/14/2021 02/14/2022 02/14/2022 12:17 PM 12:17 PM WBC 3.70 - 11.00 k/uL 7.84 7.55 RBC 4.20 - 6.00 m/uL 4.48 4.23 Hemoglobin 13.0 - 17.0 g/dL 14.1 13.5 Hematocrit 39.0 - 51.0 % 42.8 39.1 MCV 80.0 - 100.0 fL 95.5 92.4 MCH 26.0 - 34.0 pg 31.5 31.9 MCHC 30.5 - 36.0 g/dL 32.9 34.5 RDW-CV 11.5 - 15.0 % 12.1 12.8 Platelet Count 150 - 400 k/uL 282 268 MPV 9.0 - 12.7 fL 10.3 10.2 Neut% % 41.1 56.3 Abs Neut (ANC) 1.45 - 7.50 k/uL 3.20 4.25 Lymph% % 42.2 28.2 Abs Lymph 1.00 - 4.00 k/uL 3.31 2.13 [place]% % 11.2 10.2 Abs [place] <0.87 k/uL 0.88 (H) 0.77 Eosin% % 4.6 4.1 Abs Eosin <0.46 k/uL 0.36 0.31 Baso% % 0.9 0.7 Abs Baso <0.11 k/uL 0.07 0.05 Immature Gran % % 0.5 IMMATURE GRANS (ABS) <0.10 k/uL 0.04 NRBC /100 WBC 0.0 Absolute nRBC <0.01 k/uL <0.01 <0.01 DTYPE Auto Nucleated Reds 0 /100 WBC 0.0 Diff Type Auto Diff Protein, Total 6.3 - 8.0 g/dL 6.5 6.8 Albumin 3.9 - 4.9 g/dL 4.3 4.1 Calcium 8.5 - 10.2 mg/dL 9.2 8.5 8.5 Bilirubin, Total 0.2 - 1.3 mg/dL 0.4 0.3 Alkaline Phosphatase 38 - 113 U/L 82 81 AST 14 - 40 U/L 31 30 Glucose 74 - 99 mg/dL 97 101 (H) 101 (H) BUN 9 - 24 mg/dL 13 10 10 Creatinine 0.73 - 1.22 mg/dL 1.31 (H) 1.28 (H) 1.28 (H) Sodium 136 - 144 mmol/L 138 139 139 Potassium 3.7 - 5.1 mmol/L 3.8 4.3 4.3 Chloride 97 - 105 mmol/L 101 104 104 CO2 22 - 30 mmol/L 26 26 26 Anion Gap 9 - 18 mmol/L 11 9 9 ALT 10 - 54 U/L 42 32 eGFR- >60 eGFR-All Other Races . 55 eGFR >=60 mL/min/1.73mA? 62 62 Mild persistent asthma, unspecified whether complicated Jas (obstructive sleep apnea) ahi 10.8 Mild persistent asthma without complication Welding Technician: none. Interval history: seemed to improve after antibiotics for nail infection. Current medications: Citirazine 10mg daily Albuterol I 2 puffs q6h prn CPAP 10cm H2O Worsening shortness of breath: No. Cough: intermittent with cleaning cat box, house is full of hoarded materials. Wheezing: No. Smoking: No. Compliant with medications: Yes. Using rescue inhaler: 2-3 times a week until recently as above. Congested nasally last couple days, thinks r/t to CPAP Chronic renal failure, stage 3a (hcc) Steady improvement as above Paranoia (psychosis) (hcc) Depression, unspecified depression type Not receiving psychiatric care due to cost. On waiting list. Gives blood every 4 months Takes iron to keep level up. Current medications: Ferrous sulfate 65mg daily Psoriatic arthritis Current medications: Otezla 1 tab twice a day. 05/30/2023 f/u Dr. Aiken unhappy with use of Mobic due to renal status. Trimmed right th (more content not included)... [facility] 06-14-2023 History of Presen t illness Narrative 67 year old male with c/o 6 month follow up Knee got much worse after lat visit. States messed around with meds , did home repairs with a lot of bending and squatting which seemed to help. Suddenly one day better. Has rash on left elbow from bed bugs. Nonrheumatic aortic valve insufficiency (primary encounter diagnosis) Nonrheumatic mitral valve regurgitation Aortic dilatation (hcc) Primary hypertension Mixed hyperlipidemia Cardiovascular interval hx: 06/19/2022 echo: LV size and LVSF WNL. No myocardial wall dysfunction RV size and RVSF WNL. RVSP 34mmHG , RA 3mmHg LA +RA size WNL Aorta : sinus 3.7cm. mid ascending aorta 3.5cm 09/28/19 echo: LV size +LVSF WNL, EF 62% RV size +RVSF WNL. No valvular abnormalities. Aortic measurements: Sinus: 3.4 cm. Sinotubular junction 2.6 cm. Mid ascending aorta 3.7 12/15/2009 echo: LV size+LVSF WNL, EF 55%; stage 1 LVDD. RV size + RVSF WNL. 1+ MR, TR. RVSP 40mmHg. Prominent aortic sinus 3.7cm, ascending aorta 3.6cm Current meds: Amlodipine 5mg daily KCL ER 20mEq daily Use of NTG: No Chest pain, arm, jaw pain, neck, or upper back pain suggestive of angina: No. SOB: Notes sometimes feels like he wouldn't be able to breathe if fell asleep so stayed awake. Dyspnea with exertion: No orthopnea: No Cough : No racing or irregular heartbeats: No palpitations: No syncopal sx: No Headache: No Unexplainable fatigue No Leg swelling: No Nausea: No diaphoresis: No Heartburn: No Claudication: No Smoking: No Following Low cholesterol, high fiber diet? Okay: better than it has been in some ways: eats spinach, beets, instead of sweets If on statin: muscle aches? No If on statin: GI sx or diarrhea? No Additional history none. Lab review: Last 3 Encounter BP Readings: Date: BP: 06/14/2023 138/72 12/17/2022 132/68 11/29/2022 140/76 Outside labs [facility]: 06/11/2023 lipid: TC 168-TRIG 125-HDL 35-non-HDL 133-VLDL 25-TC: HDL ratio 4.80-LDL 108-LDL: HDL ratio 3.09 12/06/2022 lipid: TC 210-TRIG 161-HDL 37-non-HDL 173-VLDL 32-TC: HDL ratio 5.68-LDL 141-LDL: HDL ratio 3.81 Component Latest Ref Rng & Units 12/14/2021 02/14/2022 02/14/2022 12:17 PM 12:17 PM WBC 3.70 - 11.00 k/uL 7.84 7.55 RBC 4.20 - 6.00 m/uL 4.48 4.23 Hemoglobin 13.0 - 17.0 g/dL 14.1 13.5 Hematocrit 39.0 - 51.0 % 42.8 39.1 MCV 80.0 - 100.0 fL 95.5 92.4 MCH 26.0 - 34.0 pg 31.5 31.9 MCHC 30.5 - 36.0 g/dL 32.9 34.5 RDW-CV 11.5 - 15.0 % 12.1 12.8 Platelet Count 150 - 400 k/uL 282 268 MPV 9.0 - 12.7 fL 10.3 10.2 Neut% % 41.1 56.3 Abs Neut (ANC) 1.45 - 7.50 k/uL 3.20 4.25 Lymph% % 42.2 28.2 Abs Lymph 1.00 - 4.00 k/uL 3.31 2.13 [place]% % 11.2 10.2 Abs [place] <0.87 k/uL 0.88 (H) 0.77 Eosin% % 4.6 4.1 Abs Eosin <0.46 k/uL 0.36 0.31 Baso% % 0.9 0.7 Abs Baso <0.11 k/uL 0.07 0.05 Immature Gran % % 0.5 IMMATURE GRANS (ABS) <0.10 k/uL 0.04 NRBC /100 WBC 0.0 Absolute nRBC <0.01 k/uL <0.01 <0.01 DTYPE Auto Nucleated Reds 0 /100 WBC 0.0 Diff Type Auto Diff Protein, Total 6.3 - 8.0 g/dL 6.5 6.8 Albumin 3.9 - 4.9 g/dL 4.3 4.1 Calcium 8.5 - 10.2 mg/dL 9.2 8.5 8.5 Bilirubin, Total 0.2 - 1.3 mg/dL 0.4 0.3 Alkaline Phosphatase 38 - 113 U/L 82 81 AST 14 - 40 U/L 31 30 Glucose 74 - 99 mg/dL 97 101 (H) 101 (H) BUN 9 - 24 mg/dL 13 10 10 Creatinine 0.73 - 1.22 mg/dL 1.31 (H) 1.28 (H) 1.28 (H) Sodium 136 - 144 mmol/L 138 139 139 Potassium 3.7 - 5.1 mmol/L 3.8 4.3 4.3 Chloride 97 - 105 mmol/L 101 104 104 CO2 22 - 30 mmol/L 26 26 26 Anion Gap 9 - 18 mmol/L 11 9 9 ALT 10 - 54 U/L 42 32 eGFR- >60 eGFR-All Other Races . 55 eGFR >=60 mL/min/1.73m 62 62 Mild persistent asthma, unspecified whether complicated Jas (obstructive sleep apnea) ahi 10.8 Mild persistent asthma without complication Welding Technician: none. Interval history: seemed to improve after antibiotics for nail infection. Current medications: Citirazine 10mg daily Albuterol MDI 2 puffs q6h prn CPAP 10cm H2O Worsening shortness of breath: No. Cough: intermittent with cleaning cat box, house is full of hoarded materials. Wheezing: No. Smoking: No. Compliant with medications: Yes. Using rescue inhaler: 2-3 times a week until recently as above. Congested nasally last couple days, thinks r/t to CPAP Chronic renal failure, stage 3a (hcc) Steady improvement as above Paranoia (psychosis) ([facility]) Depression, unspecified depression type Not receiving psychiatric care due to cost. On waiting list. Gives blood every 4 months Takes iron to keep level up. Current medications: Ferrous sulfate 65mg daily Psoriatic arthritis Current medications: Otezla 1 tab twice a day. 05/30/2023 f/u Dr. Aiken unhappy with use of Mobic due to renal status. Trimmed right thumb finger nail down the side which made it loose. Developed dark green/ black pus under nail with erythema at cuticle. Went to and placed on cephalexin with improvement but still has discoloration and nail is loose on radial side. PA identified onychomycosis. Resolving mother' s estate, step son went to court to try to get money HISTORIES FAMILY HISTORY Problem Relation Age of Onset Cancer Mother 91 nonsmoker, lung cancer Detached Retina Mother other (varicose veins) Mother living age 82 Cancer Father colon, ; living age 85 Hearing Loss Father Psychiatry Father Hypertension Father Heart Father Colon Cancer Father other (cataracts) Father other (murmur) Father other (atrial fib) Father None Sister living and healthy None Brother living and healthy Hypertension Brother Psychiatry Paternal Grandmother other (cataracts) Paternal Grandmother Psychiatry Paternal Grandfather other (enlarged heart) Paternal Grandfather other (retinal detachment) Paternal Uncle and macular degeneration PAST MEDICAL HISTORY Diagnosis Date AI (aortic insufficiency) Arthritis Back pain Back pain Benign neoplasm of colon Carpal tunnel syndrome early Cataract Cavities Chronic renal failure, stage 3a (HCC) 12/15/2021 Depression Depression Diarrhea Environmental allergies Epiploic appendagitis 02/20/2022 CT ab/pel IVC Fibromyalgia early Fibromyalgia Hemorrhoid Hyperlipidemia Hypertension Migraine atypical with vision loss JAS (obstructive sleep apnea) prior use of CPAP and medications without improvement Personal history of colonic polyps Retinal detachment x 4 TMJ disorder PAST SURGICAL HISTORY Procedure Laterality Date APPENDECTOMY 05/2001 COLONOSCOPY N/A 11/14/2016 Repeat 2019 COLONOSCOPY FLX DX W/COLLJ SPEC WHEN PFRMD 11/20/2019 Colonoscopy COLSC FLX W/REMOVAL LESION BY HOT BX FORCEPS 05/12/10 COLSC FLX W/RMVL OF TUMOR POLYP LESION SNARE TQ 11/16/13 repeat due 2015 EGD TRANSORAL BIOPSY SINGLE/MULTIPLE 11/16/13 PAST SURGICAL HISTORY OF implanted lenses both eyes RPR 1ST INGUN HRNA AGE 6 YRS/> REDUCIBLE 09/11/2017 Hernia repair, inguinal right with mesh RPR COMPLEX RETINA DETACH VITRECT &MEMBRANE PEEL x4 (2 each side) XCAPSL CTRC RMVL INSJ IO LENS PROSTH W/O ECP 2000 Social History Tobacco Use Smoking status: Never Smokeless tobacco: Never Substance Use Topics Alcohol use: No Drug use: No ACTIVE PROBLEM LIST Mitral Regurgitation Depression Vitamin D Deficiency JAS (obstructive sleep apnea) AHI 10.8 Myalgia Chronic Rhinitis Diarrhea Benign Neoplasm of Colon Hypertension Hypogonadism Secondary Male Hypogonadism Hyperlipemia Paranoia (Psychosis) (Hcc) Thoracic Or Lumbosacral Neuritis Or Radiculitis, Unspecified Psoriatic Arthritis (Hcc) Inguinal Hernia (Aortic Insufficiency) Mild Persistent Asthma Mixed Rhinitis Pruritic Dermatitis Aortic Dilatation (Hcc) Chronic Renal Failure, Stage 3a (Hcc) Current Outpatient Medications Medication Sig Dispense Refill pravastatin (PRAVACHOL) 20 mg tablet Take 1 tablet by mouth daily at bedtime. 90 tablet 0 amLODIPine (NORVASC) 5 mg tablet Take 1 tablet by mouth once daily. 90 tablet 1 potassium chloride ER (KLOR-CON M20) 20 mEq tablet Take 1 tablet by mouth once daily. 90 tablet 3 cetirizine (ZYRTEC) 10 mg tablet Take 1 tablet by mouth once daily. 90 tablet 3 meloxicam (MOBIC) 15 mg tablet Take 1 tablet by mouth once daily. Take with food. 90 tablet 1 montelukast (SINGULAIR) 10 mg tablet Take 1 tablet by mouth daily at bedtime. 90 tablet 3 ferrous sulfate (IRON ORAL) Take 65 mg by mouth once daily. brimonidine (ALPHAGAN) 0.2 % ophthalmic solution Use 1 Drop in both eyes twice daily. albuterol HFA (PROAIR HFA) 90 mcg/actuation inhaler Inhale 2 Puffs as instructed every 6 hours as needed. 1 Inhaler 0 CPAP CPAP 10 cmH2O, suitable mask, tubing, humidifier, filters. Lifetime supplies. Dx: 327.23 - Obstructive sleep apnea 1 Device 0 timolol maleate (TIMOPTIC) 0.5 % dpet 1 Drop twice daily. cholecalciferol (VITAMIN D-3) 5,000 unit tab Take 1 tablet by mouth once daily. 90 tablet 1 APREMILAST (OTEZLA ORAL) Take 1 tablet by mouth twice daily. Current Facility-Administered Medications Medication Dose Route Frequency Provider Last Rate Last Admin perflutren lipid microspheres 1.3 mL in NaCl (PF) 0.9% 10 mL injection (DEFINITY) INTRAVENOUS DIRECTED PRN Juana Wang PA-C sodium chloride 0.9 % (flush) 10 mL (BD POSIFLUSH) 10 mL INTRAVENOUS DIRECTED PRN Juana Wang PA-C SPIROMETRY Never done BP CONTROLLED (<130/80) Never done COLORECTAL CANCER SCREENING due on 11/20/2022 SERUM CREATININE due on 02/14/2023 EXAM: BP 138/72 Pulse 60 Resp 16 Wt (!) 140.2 kg (309 lb) SpO2 97% BMI 41.35 kg/m Pleasant obese man in no acute distress. Alert and oriented all spheres. Normal affect and cognition. Speech normal. No deficits to learning or comprehension. Skin warm, dry, pink to lips and nailbeds. Normal turgor. Has red papular rash both wrists where his sleeve ends. Some are in tracks. Several along lower abdomen above belt line. Respirations regular and unlabored. HEENT: NCAT. No scleral icterus or conjunctival injection. TM's clear. Nose and oropharynx free from injection or lesion. Oral membranes moist and pink. No cervical lymph nodes. Thyroid non-tender, no masses, or enlargement. Carotids pulses 2+/4+ without bruits. No JVD with HOB at 30 degrees. Chest is normal shape. Lungs are clear to all whitt with good air exchange through out. HRRR without murmur or gallop. No lifts, heaves, or rubs. Extrem: no clubbing, cyanosis, edema. Distal pulses 2+/4, prompt capillary refill. ASSESSMENT/PLAN: 1. Nonrheumatic aortic valve insufficiency - ICD9: 424.1, ICD10: I35.1 (primary diagnosis) 2. Nonrheumatic mitral valve regurgitation - ICD9: 424.0, ICD10: I34.0 3. Aortic dilatation (HCC) - ICD9: 447.70, ICD10: I77.819 Stable 2021: recheck in 1-2 years 4. Primary hypertension - ICD9: 401.9, ICD10: I10 - Controlled - Continue current medications - Recommend home blood pressure monitoring, to bring results to next visit - Encouraged sodium restriction, DASH or Mediterranean diet - Recommend regular aerobic exercise 5. Mixed hyperlipidemia - ICD9: 272.2, ICD10: E78.2 - Controlled - Continue current medications - Counseled on healthy diet and regular exercise - Discussed need for and benefit of weight loss. BMI 41.35 kg/(m^2) 6. Mild persistent asthma, unspecified whether complicated - ICD9: 493.90, ICD10: J45.30 - Mild intermittent asthma stable - Continue current medications - Avoidance of triggers recommended 7. Chronic renal failure, stage 3a (HCC) - ICD9: 585.3, ICD10: N18.31 - eGFR: Stable - Counseled on avoiding NSAIDs, adequate hydration 8. Paranoia (psychosis) (HCC) - ICD9: 297.1, ICD10: F22 Receiving no treatment, at baseline, managing 9. Psoriatic arthritis (HCC) - ICD9: 696.0, ICD10: L40.50 Improved with Otezla, mild recurrence off med 10. JAS (obstructive sleep apnea) AHI 10.8 - ICD9: 327.23, ICD10: G47.33 Needs new CPAP device and tubing Some of this note may have been copied and pasted for the purpose of history context and comparison. Juana Wang PA-C documented in this encounter [facility] 06-10-2023 Miscellaneous Notes Get Medical Advice on 06/10/23 LIPID PANEL BASIC Thanks, Jose Manuel Wang PA-C Pt had labs completed by Dr. Aiken at [facility] on 05/30/23 through Care Everywhere, these are not scanned into chart but can be reviewed through [facility] Everywhere. No future labs pending. Amanda Gardner Ma documented in this encounter [facility] 03-15-2023 Miscellaneous Notes Patient phones requesting refills as follows: Requested Prescriptions Pending Prescriptions Disp Refills potassium chloride ER (KLOR-CON M20) 20 mEq tablet 90 tablet 3 Sig: Take 1 tablet by mouth once daily. MATHEUS 12/17/22 NOV 06/14/23 Please review and advise. Maximiliano Mosher LPN documented in this encounter [facility] 02-19-2023 Miscellaneous Notes The following approved medication requests have been transmitted electronically. Requested Prescriptions Signed Prescriptions Disp Refills predniSONE (DELTASONE) 20 mg tablet 10 tablet 2 Sig: Take 2 tablets by mouth once daily for 5 days. Juana Wang PA-C documented in this encounter [facility] 02-02-2023 Miscellaneous Notes Patient has been identified by name and date of : Yes Requested Prescriptions Pending Prescriptions Disp Refills cetirizine (ZYRTEC) 10 mg tablet 90 tablet 3 Sig: Take 1 tablet by mouth once daily. RX INSTRUCTIONS: MyChart request. MATHEUS 12/17/22 Guerda Porter LPN documented in this encounter [facility] 12-17-2022 Instructions Juana Wang PA-C - 12/17/2022 2:43 PM EST 1: 6 bleach: water and drop unto open nail daily until it grows out. documented in this encounter [facility] 12-17-2022 History of Presen t illness Narrative 67 year old male with c/o here for follow up Nonrheumatic aortic valve insufficiency (primary encounter diagnosis) Nonrheumatic mitral valve regurgitation Aortic dilatation (hcc) Primary hypertension Mixed hyperlipidemia Cardiovascular interval hx: 09/28/19 echo: LV size +LVSF WNL, EF 62%, RV size +RVSF WNL. No valvular abnormalities. Aortic measurements: Sinus: 3.4 cm. Sinotubular junction 2.6 cm. Mid ascending aorta 3.7 12/15/2009 echo: LV size+LVSF WNL, EF 55%; stage 1 LVDD. RV size + RVSF WNL. 1+ MR, TR. RVSP 40mmHg. Prominent aortic sinus 3.7cm, ascending aorta 3.6cm Current meds: Amlodipine 5mg daily KCL ER 20mEq daily Use of NTG: No Chest pain, arm, jaw pain, neck, or upper back pain suggestive of angina: No. SOB: No Dyspnea with exertion: No orthopnea: No Cough : No racing or irregular heartbeats: No palpitations: No syncopal sx: No Headache: No Unexplainable fatigue No Leg swelling: No Nausea: No diaphoresis: No Heartburn: No Claudication: No Smoking: No Following Low cholesterol, high fiber diet? Okay: better than it has been in some ways: eats spinach, beets, instead of sweets If on statin: muscle aches? No If on statin: GI sx or diarrhea? No Additional history none. Lab review: Component Latest Ref Rng & Units 08/10/2019 12/14/2021 12/06/2022 WBC 3.70 - 11.00 k/uL 7.84 RBC 4.20 - 6.00 m/uL 4.48 Hemoglobin 13.0 - 17.0 g/dL 14.1 Hematocrit 39.0 - 51.0 % 42.8 MCV 80.0 - 100.0 fL 95.5 MCH 26.0 - 34.0 pG 31.5 MCHC 30.5 - 36.0 g/dL 32.9 RDW-CV 11.5 - 15.0 % 12.1 Platelet Count 150 - 400 k/uL 282 MPV 9.0 - 12.7 fL 10.3 Neut% % 41.1 Abs Neut (ANC) 1.45 - 7.50 k/uL 3.20 Lymph% % 42.2 Abs Lymph 1.00 - 4.00 k/uL 3.31 [place]% % 11.2 Abs [place] <0.87 k/uL 0.88 (H) Eosin% % 4.6 Abs Eosin <0.46 k/uL 0.36 Baso% % 0.9 Abs Baso <0.11 k/uL 0.07 Nucleated Reds 0 /100 WBC 0.0 Absolute nRBC <0.01 k/uL <0.01 Diff Type Auto Diff Cholesterol, Total <200 mg/dL 174 210 (H) Triglyceride <150 mg/dL 187 (H) 161 (H) HDL Cholesterol >39 mg/dL 33 (L) 37 (L) LDL Cholesterol <100 mg/dL 104 (H) 141 (H) Non HDL Cholesterol <130 mg/dL 141 (H) 173 (H) Fasting Time hrs Unknown 12 VLDL Cholesterol <30 mg/dL 37 (H) 32 (H) TC:HDL Ratio <5.10 5.27 (H) 5.68 (H) LDL:HDL Ratio <2.54 3.15 (H) 3.81 (H) Mild persistent asthma, unspecified whether complicated Jas (obstructive sleep apnea) ahi 10.8 Mild persistent asthma without complication Welding Technician: none. Interval history: seemed to improve after antibiotics for nail infection. Current medications: Citirazine 10mg daily Albuterol MDI 2 puffs q6h prn CPAP 10cm H2) Worsening shortness of breath: No. Cough: intermittent with cleaning cat box, house is full of hoarded materials. Wheezing: No. Smoking: No. Compliant with medications: Yes. Using rescue inhaler: 2-3 times a week until recently as above. Chronic renal failure, stage 3a (hcc) Steady improvement Component Latest Ref Rng & Units 02/14/2022 02/14/2022 12:17 PM 12:17 PM Protein, Total 6.3 - 8.0 g/dL 6.8 Albumin 3.9 - 4.9 g/dL 4.1 Calcium 8.5 - 10.2 mg/dL 8.5 8.5 Bilirubin, Total 0.2 - 1.3 mg/dL 0.3 Alkaline Phosphatase 38 - 113 U/L 81 AST 14 - 40 U/L 30 Glucose 74 - 99 mg/dL 101 (H) 101 (H) BUN 9 - 24 mg/dL 10 10 Creatinine 0.73 - 1.22 mg/dL 1.28 (H) 1.28 (H) Sodium 136 - 144 mmol/L 139 139 Potassium 3.7 - 5.1 mmol/L 4.3 4.3 Chloride 97 - 105 mmol/L 104 104 CO2 22 - 30 mmol/L 26 26 Anion Gap 9 - 18 mmol/L 9 9 ALT 10 - 54 U/L 32 eGFR- eGFR-All Other Races . eGFR >=60 mL/min/1.73m 62 62 Paranoia (psychosis) (hcc) Depression, unspecified depression type Call in psychiatry recommended some one local. Gives blood every 4 months Takes iron to keep level up. Current medications: Ferrous sulfate 65mg daily Psoriatic arthritis Current medications: Otezla 1 tab twice a day. Dr. Aiken unhappy with use of Mobic due to renal status. Trimmed right thumb finger nail down the side which made it loose. Developed dark green/ black pus under nail with erythema at cuticle. Went to and placed on cephalexin with improvement but still has discoloration and nail is loose on radial side. PA identified onychomycosis. HISTORIES FAMILY HISTORY Problem Relation Age of Onset Cancer Mother 91 nonsmoker, lung cancer Detached Retina Mother other (varicose veins) Mother living age 82 Cancer Father colon, ; living age 85 Hearing Loss Father Psychiatry Father Hypertension Father Heart Father Colon Cancer Father other (cataracts) Father other (murmur) Father other (atrial fib) Father None Sister living and healthy None Brother living and healthy Hypertension Brother Psychiatry Paternal Grandmother other (cataracts) Paternal Grandmother Psychiatry Paternal Grandfather other (enlarged heart) Paternal Grandfather other (retinal detachment) Paternal Uncle and macular degeneration PAST MEDICAL HISTORY Diagnosis Date AI (aortic insufficiency) Arthritis Back pain Back pain Benign neoplasm of colon Carpal tunnel syndrome early Cataract Cavities Chronic renal failure, stage 3a (HCC) 12/15/2021 Depression Depression Diarrhea Environmental allergies Epiploic appendagitis 02/20/2022 CT ab/pel IVC Fibromyalgia early Fibromyalgia Hemorrhoid Hyperlipidemia Hypertension Migraine atypical with vision loss JAS (obstructive sleep apnea) prior use of CPAP and medications without improvement Personal history of colonic polyps Retinal detachment x 4 TMJ disorder PAST SURGICAL HISTORY Procedure Laterality Date APPENDECTOMY 05/2001 COLONOSCOPY N/A 11/14/2016 Repeat 2019 COLONOSCOPY FLX DX W/COLLJ SPEC WHEN PFRMD 11/20/2019 Colonoscopy COLSC FLX W/REMOVAL LESION BY HOT BX FORCEPS 05/12/10 COLSC FLX W/RMVL OF TUMOR POLYP LESION SNARE TQ 11/16/13 repeat due 2015 EGD TRANSORAL BIOPSY SINGLE/MULTIPLE 11/16/13 PAST SURGICAL HISTORY OF implanted lenses both eyes RPR 1ST INGUN HRNA AGE 6 YRS/> REDUCIBLE 09/11/2017 Hernia repair, inguinal right with mesh RPR COMPLEX RETINA DETACH VITRECT &MEMBRANE PEEL 2008, x4 (2 each side) XCAPSL CTRC RMVL INSJ IO LENS PROSTH W/O ECP 2000 Social History Tobacco Use Smoking status: Never Smokeless tobacco: Never Substance Use Topics Alcohol use: No Drug use: No ACTIVE PROBLEM LIST Mitral Regurgitation Depression Vitamin D Deficiency JAS (obstructive sleep apnea) AHI 10.8 Myalgia Chronic Rhinitis Diarrhea Benign Neoplasm of Colon Hypertension Hypogonadism Secondary Male Hypogonadism Hyperlipemia Paranoia (Psychosis) (Hcc) Thoracic Or Lumbosacral Neuritis Or Radiculitis, Unspecified Psoriatic Arthritis (Hcc) Inguinal Hernia (Aortic Insufficiency) Mild Persistent Asthma Mixed Rhinitis Pruritic Dermatitis Aortic Dilatation (Hcc) Chronic Renal Failure, Stage 3a (Hcc) Current Outpatient Medications Medication Sig Dispense Refill montelukast (SINGULAIR) 10 mg tablet Take 1 tablet by mouth daily at bedtime. 90 tablet 3 nabumetone (RELAFEN) 500 mg tablet Take 1 tablet by mouth once daily. TAKE WITH FOOD 30 tablet 2 amLODIPine (NORVASC) 5 mg tablet Take 1 tablet by mouth once daily. 90 tablet 1 ferrous sulfate (IRON ORAL) Take 65 mg by mouth once daily. potassium chloride ER (KLOR-CON M20) 20 mEq tablet Take 1 tablet by mouth once daily. 90 tablet 3 brimonidine (ALPHAGAN) 0.2 % ophthalmic solution Use 1 Drop in both eyes twice daily. cetirizine (ZYRTEC) 10 mg tablet Take 1 tablet by mouth once daily. 90 tablet 3 albuterol HFA (PROAIR HFA) 90 mcg/actuation inhaler Inhale 2 Puffs as instructed every 6 hours as needed. 1 Inhaler 0 CPAP CPAP 10 cmH2O, suitable mask, tubing, humidifier, filters. Lifetime supplies. Dx: 327.23 - Obstructive sleep apnea 1 Device 0 timolol maleate (TIMOPTIC) 0.5 % dpet 1 Drop twice daily. cholecalciferol (VITAMIN D-3) 5,000 unit tab Take 1 tablet by mouth once daily. 90 tablet 1 APREMILAST (OTEZLA ORAL) Take 1 tablet by mouth twice daily. Current Facility-Administered Medications Medication Dose Route Frequency Provider Last Rate Last Admin perflutren lipid microspheres 1.3 mL in NaCl (PF) 0.9% 10 mL injection (DEFINITY) INTRAVENOUS DIRECTED PRN Juana Wang PA-C sodium chloride 0.9 % (flush) 10 mL (BD POSIFLUSH) 10 mL INTRAVENOUS DIRECTED PRN Juana Wang PA-C SPIROMETRY Never done BP CONTROLLED (<130/80) Never done ADVANCE DIRECTIVE DISCUSSION due on 12/02/2022 COLORECTAL CANCER SCREENING due on 11/20/2022 EXAM: BP 132/68 Pulse 65 Resp 20 Wt (!) 140.2 kg (309 lb) SpO2 97% BMI 41.35 kg/m Pleasant obese man in no acute distress. Alert and oriented all spheres. Normal affect and cognition. Speech normal. No deficits to learning or comprehension. Skin warm, dry, pink to lips and nailbeds. Normal turgor. Respirations regular and unlabored. HEENT: NCAT. No scleral icterus or conjunctival injection. TM's clear. Nose and oropharynx free from injection or lesion. Oral membranes moist and pink. No cervical lymph nodes. Thyroid non-tender, no masses, or enlargement. Carotids pulses 2+/4+ without bruits. No JVD with HOB at 30 degrees. Chest is normal shape. Lungs are clear to all whitt with good air exchange through out. HRRR without murmur or gallop. No lifts, heaves, or rubs. Extrem: no clubbing or cyanosis. Edema: none. Extremities are warm and pink with prompt capillary refill. ASSESSMENT/PLAN: 1. Nonrheumatic aortic valve insufficiency - ICD9: 424.1, ICD10: I35.1 (primary diagnosis) 2. Nonrheumatic mitral valve regurgitation - ICD9: 424.0, ICD10: I34.0 3. Aortic dilatation (HCC) - ICD9: 447.70, ICD10: I77.819 Has remained stable for several years. Discussed cardiology follow up but doesn't want expense when he's feeling fine. 4. Primary hypertension - ICD9: 401.9, ICD10: I10 - good control - Continue current medication(s) - Recommended regular aerobic exercise. - Recommend home blood pressure monitoring, to bring results in on next visit - Goal of BP <130/80 5. Mixed hyperlipidemia - ICD9: 272.2, ICD10: E78.2 - good control - Continue current medication. 6. Mild persistent asthma, unspecified whether complicated - ICD9: 493.90, ICD10: J45.30 Mild intermittent Asthma stable - Continue current meds - Avoidance of triggers recommended - discussed living situation again which is the worst environment for asthma. 7. JAS (obstructive sleep apnea) AHI 10.8 - ICD9: 327.23, ICD10: G47.33 Compliant with CPAP 8. Chronic renal failure, stage 3a (HCC) - ICD9: 585.3, ICD10: N18.31 - eGFR: Stable Discussed issues with use of NSAID meloxicam which significant improves pain. Lab routinely followed without significant change. Discussed risks as previously- prefers to use at least on occasional basis. Tylenol does nothing. 9. Paranoia (psychosis) (HCC) - ICD9: 297.1, ICD10: F22 No longer under psychiatric care on-line. Doesn't want to pay $40 for co-pay Offered several options- declines. 10. Depression, unspecified depression type - ICD9: 311, ICD10: F32.A stable 11. Discoloration of nail - ICD9: 703.8, ICD10: L60.8 12. Onycholysis - ICD9: 703.8, ICD10: L60.1 Suspect pseudomonal infection r/t to onycholysis: recommend 1: 6 bleach: water and drip in open nail space daily until improves Juana Wang PA-C documented in this encounter [facility] 12-07-2022 Miscellaneous Notes The lab entered was a lipid profile. Dr. Aiken did not order this test. Thanks, Jose Manuel Wang PA-C Printed his Dr Nelli rosa for review. documented in this encounter [facility] 11-29-2022 History of Presen t illness Narrative This note was created using [employer]. Subjective Salud Mesa is a 67 year old male. HPI + Presents with right thumb nail changes over the past 3 months. The past 3 days he has some redness of the skin around and thought he saw some pus under the nail. No fever or chills. Has not had the nail looked at previously. No history of fungal nails. Review of Systems Constitutional: Negative. HENT: Negative. Respiratory: Negative. Gastrointestinal: Negative. Musculoskeletal: Right thumb nail changes and red skin All other systems reviewed and are negative. PAST MEDICAL HISTORY Diagnosis Date AI (aortic insufficiency) Arthritis Back pain Back pain Benign neoplasm of colon Carpal tunnel syndrome early Cataract Cavities Chronic renal failure, stage 3a (HCC) 12/15/2021 Depression Depression Diarrhea Environmental allergies Epiploic appendagitis 02/20/2022 CT ab/pel IVC Fibromyalgia early Fibromyalgia Hemorrhoid Hyperlipidemia Hypertension Migraine atypical with vision loss JAS (obstructive sleep apnea) prior use of CPAP and medications without improvement Personal history of colonic polyps Retinal detachment x 4 TMJ disorder Current Outpatient Medications Medication Sig Dispense Refill montelukast (SINGULAIR) 10 mg tablet Take 1 tablet by mouth daily at bedtime. 90 tablet 3 nabumetone (RELAFEN) 500 mg tablet Take 1 tablet by mouth once daily. TAKE WITH FOOD 30 tablet 2 amLODIPine (NORVASC) 5 mg tablet Take 1 tablet by mouth once daily. 90 tablet 1 ferrous sulfate (IRON ORAL) Take 65 mg by mouth once daily. potassium chloride ER (KLOR-CON M20) 20 mEq tablet Take 1 tablet by mouth once daily. 90 tablet 3 brimonidine (ALPHAGAN) 0.2 % ophthalmic solution Use 1 Drop in both eyes twice daily. cetirizine (ZYRTEC) 10 mg tablet Take 1 tablet by mouth once daily. 90 tablet 3 albuterol HFA (PROAIR HFA) 90 mcg/actuation inhaler Inhale 2 Puffs as instructed every 6 hours as needed. 1 Inhaler 0 CPAP CPAP 10 cmH2O, suitable mask, tubing, humidifier, filters. Lifetime supplies. Dx: 327.23 - Obstructive sleep apnea 1 Device 0 timolol maleate (TIMOPTIC) 0.5 % dpet 1 Drop twice daily. cholecalciferol (VITAMIN D-3) 5,000 unit tab Take 1 tablet by mouth once daily. 90 tablet 1 APREMILAST (OTEZLA ORAL) Take 1 tablet by mouth twice daily. cephALEXin (KEFLEX) 500 mg capsule Take 1 capsule by mouth three times daily for 7 days. 21 capsule 0 Current Facility-Administered Medications Medication Dose Route Frequency Provider Last Rate Last Admin perflutren lipid microspheres 1.3 mL in NaCl (PF) 0.9% 10 mL injection (DEFINITY) INTRAVENOUS DIRECTED PRN Juana Wang PA-C sodium chloride 0.9 % (flush) 10 mL (BD POSIFLUSH) 10 mL INTRAVENOUS DIRECTED PRN Juana Wang PA-C PAST SURGICAL HISTORY Procedure Laterality Date APPENDECTOMY 05/2001 COLONOSCOPY N/A 11/14/2016 Repeat 2019 COLONOSCOPY FLX DX W/COLLJ SPEC WHEN PFRMD 11/20/2019 Colonoscopy COLSC FLX W/REMOVAL LESION BY HOT BX FORCEPS 05/12/10 COLSC FLX W/RMVL OF TUMOR POLYP LESION SNARE TQ 11/16/13 repeat due 2015 EGD TRANSORAL BIOPSY SINGLE/MULTIPLE 11/16/13 PAST SURGICAL HISTORY OF implanted lenses both eyes RPR 1ST INGUN HRNA AGE 6 YRS/> REDUCIBLE 09/11/2017 Hernia repair, inguinal right with mesh RPR COMPLEX RETINA DETACH VITRECT &MEMBRANE PEEL x4 (2 each side) XCAPSL CTRC RMVL INSJ IO LENS PROSTH W/O ECP 2000 FAMILY HISTORY Problem Relation Age of Onset Cancer Mother 91 nonsmoker, lung cancer Detached Retina Mother other (varicose veins) Mother living age 82 Cancer Father colon, ; living age 85 Hearing Loss Father Psychiatry Father Hypertension Father Heart Father Colon Cancer Father other (cataracts) Father other (murmur) Father other (atrial fib) Father None Sister living and healthy None Brother living and healthy Hypertension Brother Psychiatry Paternal Grandmother other (cataracts) Paternal Grandmother Psychiatry Paternal Grandfather other (enlarged heart) Paternal Grandfather other (retinal detachment) Paternal Uncle and macular degeneration Social History Tobacco Use Smoking status: Never Smokeless tobacco: Never Substance Use Topics Alcohol use: No Drug use: No Objective BP 140/76 Pulse 70 Temp 36.4 C (97.6 F) (Tympanic) Resp 18 Wt (!) 141.9 kg (312 lb 12.8 oz) SpO2 98% BMI 41.86 kg/m Physical Exam Vitals reviewed. Constitutional: Appearance: Normal appearance. Musculoskeletal: Comments: Patient has a fungal nail on the right thumb. There is some mild erythema adjacent to the nail with some swelling. No drainage. No sign of a felon Neurological: Mental Status: He is alert. Assessment and Plan ASSESSMENT/PLAN: 1. Onychomycosis - ICD9: 110.1, ICD10: B35.1 (primary diagnosis) Would recommend follow-up with PCP or dermatology to treat this. I feel he does have a secondary paronychia next to the nail which I will treat with Keflex. Discussed if not improving follow-up sooner with PCP. Patient agreeable. - CONSULT TO DERMATOLOGY 2. Paronychia of thumb, right - ICD9: 681.02, ICD10: L03.011 Ava Dodson PA-C documented in this encounter [facility] 10-22-2022 Instructions Juana Wang PA-C - 10/22/2022 2:41 PM EST See exercises for tennis elbow and patellofemoral syndrome (knees).. Relafen (nambumetone) daily with food routinely until pain is fully resolved, then prn. Ibuprofen can cause stomach symptoms including ulceration, bleeding, nausea, pain, and diarrhea. Make sure to take it with food. If you are known to have allergy to anti-inflamatories medications, or have known kidney disease, make sure we know this before you take the medication. documented in this encounter [facility] 10-22-2022 History of Presen t illness Narrative 66 year old male with c/o joint pain which was bad when he sent [employer] message. Has backed down quite a bit. Left knee is still painful on with er side of left knee. Also had pain in left elbow which seems to have resolved. Not doing anything specific for pain. 7-8/10 at worst. Father at 97 y/o in Hospice. Discussed his frustration they wouldn't force him to take necessary medications but then gave him ativan and morphine without his permission. Continues hoarding. Now has all his father's things. Has a small space in which he can move. Cat's are peeing under his bed. Asthma controlled: asking for refill singulair HISTORIES FAMILY HISTORY Problem Relation Age of Onset Cancer Mother 91 nonsmoker, lung cancer Detached Retina Mother other (varicose veins) Mother living age 82 Cancer Father colon, ; living age 85 Hearing Loss Father Psychiatry Father Hypertension Father Heart Father Colon Cancer Father other (cataracts) Father other (murmur) Father other (atrial fib) Father None Sister living and healthy None Brother living and healthy Hypertension Brother Psychiatry Paternal Grandmother other (cataracts) Paternal Grandmother Psychiatry Paternal Grandfather other (enlarged heart) Paternal Grandfather other (retinal detachment) Paternal Uncle and macular degeneration PAST MEDICAL HISTORY Diagnosis Date AI (aortic insufficiency) Arthritis Back pain Back pain Benign neoplasm of colon Carpal tunnel syndrome early Cataract Cavities Chronic renal failure, stage 3a (HCC) 12/15/2021 Depression Depression Diarrhea Environmental allergies Epiploic appendagitis 02/20/2022 CT ab/pel IVC Fibromyalgia early Fibromyalgia Hemorrhoid Hyperlipidemia Hypertension Migraine atypical with vision loss JAS (obstructive sleep apnea) prior use of CPAP and medications without improvement Personal history of colonic polyps Retinal detachment x 4 TMJ disorder PAST SURGICAL HISTORY Procedure Laterality Date APPENDECTOMY 05/2001 COLONOSCOPY N/A 11/14/2016 Repeat 2019 COLONOSCOPY FLX DX W/COLLJ SPEC WHEN PFRMD 11/20/2019 Colonoscopy COLSC FLX W/REMOVAL LESION BY HOT BX FORCEPS 05/12/10 COLSC FLX W/RMVL OF TUMOR POLYP LESION SNARE TQ 11/16/13 repeat due 2015 EGD TRANSORAL BIOPSY SINGLE/MULTIPLE 11/16/13 PAST SURGICAL HISTORY OF implanted lenses both eyes RPR 1ST INGUN HRNA AGE 5 YRS/> REDUCIBLE 09/11/2017 Hernia repair, inguinal right with mesh RPR COMPLEX RETINA DETACH VITRECT &MEMBRANE PEEL 2008, 11 x4 (2 each side) XCAPSL CTRC RMVL INSJ IO LENS PROSTH W/O ECP 2000 Social History Tobacco Use Smoking status: Never Smokeless tobacco: Never Substance Use Topics Alcohol use: No Drug use: No ACTIVE PROBLEM LIST Mitral Regurgitation Depression Vitamin D Deficiency JAS (obstructive sleep apnea) AHI 10.8 Myalgia Chronic Rhinitis Diarrhea Benign Neoplasm of Colon Hypertension Hypogonadism Secondary Male Hypogonadism Hyperlipemia Paranoia (Psychosis) (Hcc) Thoracic Or Lumbosacral Neuritis Or Radiculitis, Unspecified Psoriatic Arthritis (Hcc) Inguinal Hernia (Aortic Insufficiency) Mild Persistent Asthma Mixed Rhinitis Pruritic Dermatitis Aortic Dilatation (Hcc) Chronic Renal Failure, Stage 3a (Hcc) Current Outpatient Medications Medication Sig Dispense Refill amLODIPine (NORVASC) 5 mg tablet Take 1 tablet by mouth once daily. 90 tablet 1 ferrous sulfate (IRON ORAL) Take 65 mg by mouth once daily. potassium chloride ER (KLOR-CON M20) 20 mEq tablet Take 1 tablet by mouth once daily. 90 tablet 3 brimonidine (ALPHAGAN) 0.2 % ophthalmic solution Use 1 Drop in both eyes twice daily. cetirizine (ZYRTEC) 10 mg tablet Take 1 tablet by mouth once daily. 90 tablet 3 meloxicam (MOBIC) 15 mg tablet Take 1 tablet by mouth once daily. Take with food. (Patient taking differently: Take 15 mg by mouth as needed. Take with food.) 90 tablet 1 montelukast (SINGULAIR) 10 mg tablet Take 1 tablet by mouth daily at bedtime. 90 tablet 3 albuterol HFA (PROAIR HFA) 90 mcg/actuation inhaler Inhale 2 Puffs as instructed every 6 hours as needed. 1 Inhaler 0 CPAP CPAP 10 cmH2O, suitable mask, tubing, humidifier, filters. Lifetime supplies. Dx: 327.23 - Obstructive sleep apnea 1 Device 0 timolol maleate (TIMOPTIC) 0.5 % dpet 1 Drop twice daily. cholecalciferol (VITAMIN D-3) 5,000 unit tab Take 1 tablet by mouth once daily. 90 tablet 1 APREMILAST (OTEZLA ORAL) Take 1 tablet by mouth twice daily. Current Facility-Administered Medications Medication Dose Route Frequency Provider Last Rate Last Admin perflutren lipid microspheres 1.3 mL in NaCl (PF) 0.9% 10 mL injection (DEFINITY) INTRAVENOUS DIRECTED PRN Juana Wang PA-C sodium chloride 0.9 % (flush) 10 mL (BD POSIFLUSH) 10 mL INTRAVENOUS DIRECTED PRN Juana Wang PA-C SPIROMETRY Never done BP CONTROLLED (<130/80) Never done PNEUMOCOCCAL: 65+(2 - PPSV23 if available, else PCV20) due on 2022 COLORECTAL CANCER SCREENING due on 11/20/2022 EXAM: BP 124/70 Pulse 74 Temp 37 C (98.6 F) Resp 16 Wt (!) 140.2 kg (309 lb) SpO2 97% BMI 41.35 kg/m Pleasant obese adult male in no acute distress. Alert and oriented all spheres. Normal affect and cognition. Speech normal. No deficits to learning or comprehension. Skin warm, dry, pink to lips and nailbeds. Normal turgor. Respirations regular and unlabored. + TTP left lateral and medial knees, full ROM. No laxiety on varus, valgus stress, russel. Extrem: no clubbing or cyanosis. Edema: none. Extremities are warm and pink with prompt capillary refill. ASSESSMENT/PLAN: 1. Pain in both knees, acute - ICD9: 719.46, ICD10: M25.561, M25.562 (primary diagnosis) Resolving No significant exam findings 2. Mild persistent asthma, unspecified whether complicated - ICD9: 493.90, ICD10: J45.30 Mild intermittent Asthma stable - Continue current meds - Avoidance of triggers recommended - MONTELUKAST 10 MG TABLET 3. Acute pain of both shoulders - ICD9: 719.41, ICD10: M25.511, M25.512 Resolved. Juana Wang PA-C documented in [facility] encounter [facility] 10-08-2022 Miscellaneous Notes Patient phones requesting refills as follows: Requested Prescriptions Pending Prescriptions Disp Refills amLODIPine (NORVASC) 5 mg tablet 90 tablet 1 Sig: Take 1 tablet by mouth once daily. MATHEUS 06/15/22 NOV 12/17/22 Please review and advise. Maximiliano Mosher LPN documented in this encounter [facility] 06-15-2022 History of Presen t illness Narrative 66 year old male with c/o here for follow Primary hypertension Aortic dilatation (hcc) Nonrheumatic aortic valve insufficiency Nonrheumatic mitral valve regurgitation Mixed hyperlipidemia Cardiovascular interval hx: 09/28/19 echo: LV size +LVSF WNL, EF 62%, RV size +RVSF WNL. No valvular abnormalities. Aortic measurements: Sinus: 3.4 cm. Sinotubular junction 2.6 cm. Mid ascending aorta 3.7 12/15/2009 echo: LV size+LVSF WNL, EF 55%; stage 1 LVDD. RV size + RVSF WNL. 1+ MR, TR. RVSP 40mmHg. Prominent aortic sinus 3.7cm, ascending aorta 3.6cm Current meds: Amlodipine 5 mg daily Potassium chloride ER 20 mEq 1 tablet daily Use of NTG: No Chest pain, arm, jaw pain, neck, or upper back pain suggestive of angina: No. SOB: No Dyspnea with exertion: No orthopnea: No racing or irregular heartbeats: No palpitations: No syncopal sx: No Unexplainable fatigue No Leg swelling: No Nausea: No diaphoresis: No Heartburn: No Claudication: No Smoking: No Following Low cholesterol, high fiber diet? No If on statin: muscle aches? Uncertain if change in fatigue off statin If on statin: GI sx or diarrhea? No Additional history occasional coughing fits- uses cough drops Jas (obstructive sleep apnea) ahi 10.8 Mild persistent asthma without complication Welding Technician: none. Interval history: none. Current medications: Montelukast 10 mg daily at bedtime Albuterol HFA 90 MCG per actuation 2 puffs every 6 hours CPAP 10 cm H2O Worsening shortness of breath: No. Cough: occasional coughing fits. . Wheezing: No. Smoking: No. Compliant with medications: No. Using rescue inhaler: no use. Chronic renal failure, stage 3a (hcc) See below Psoriatic arthritis (hcc) Chronic idiopathic gout involving toe without tophus, unspecified laterality Current medications: Apremilast 1 tablet twice daily Feels joints are okay but feels he has gotten used to the back ground pain. 05/08/[address] Aiken rheumatology: CBC within normal limits except RBC 4.57, neutrophil percent 44.1, [place] percent 12.0 Chemistry profile WNL except creatinine 1.42, EGFR 64, BUN/CRE 9.2. Component Latest Ref Rng & Units 02/14/2022 Glucose 74 - 99 mg/dL 101 (H) BUN 9 - 24 mg/dL 10 Creatinine 0.73 - 1.22 mg/dL 1.28 (H) Sodium 136 - 144 mmol/L 139 Potassium 3.7 - 5.1 mmol/L 4.3 Chloride 97 - 105 mmol/L 104 CO2 22 - 30 mmol/L 26 Anion Gap 9 - 18 mmol/L 9 Calcium 8.5 - 10.2 mg/dL 8.5 eGFR >=60 mL/min/1.73m 62 Component Latest Ref Rng & Units 12/14/2021 WBC 3.70 - 11.00 k/uL 7.84 RBC 4.20 - 6.00 m/uL 4.48 Hemoglobin 13.0 - 17.0 g/dL 14.1 Hematocrit 39.0 - 51.0 % 42.8 MCV 80.0 - 100.0 fL 95.5 MCH 26.0 - 34.0 pG 31.5 MCHC 30.5 - 36.0 g/dL 32.9 RDW-CV 11.5 - 15.0 % 12.1 Platelet Count 150 - 400 k/uL 282 MPV 9.0 - 12.7 fL 10.3 Neut% % 41.1 Abs Neut (ANC) 1.45 - 7.50 k/uL 3.20 Lymph% % 42.2 Abs Lymph 1.00 - 4.00 k/uL 3.31 [place]% % 11.2 Abs [place] <0.87 k/uL 0.88 (H) Eosin% % 4.6 Abs Eosin <0.46 k/uL 0.36 Baso% % 0.9 Abs Baso <0.11 k/uL 0.07 Nucleated Reds 0 /100 WBC 0.0 Absolute nRBC <0.01 k/uL <0.01 Diff Type Auto Diff HISTORIES FAMILY HISTORY Problem Relation Age of Onset Cancer Mother 91 nonsmoker, lung cancer Detached Retina Mother other (varicose veins) Mother living age 82 Cancer Father colon, ; living age 85 Hearing Loss Father Psychiatry Father Hypertension Father Heart Father Colon Cancer Father other (cataracts) Father other (murmur) Father other (atrial fib) Father None Sister living and healthy None Brother living and healthy Hypertension Brother Psychiatry Paternal Grandmother other (cataracts) Paternal Grandmother Psychiatry Paternal Grandfather other (enlarged heart) Paternal Grandfather other (retinal detachment) Paternal Uncle and macular degeneration PAST MEDICAL HISTORY Diagnosis Date AI (aortic insufficiency) Arthritis Back pain Back pain Benign neoplasm of colon Carpal tunnel syndrome early Cataract Cavities Chronic renal failure, stage 3a (HCC) 12/15/2021 Depression Depression Diarrhea Environmental allergies Fibromyalgia early Fibromyalgia Hemorrhoid Hyperlipidemia Hypertension Migraine atypical with vision loss JAS (obstructive sleep apnea) prior use of CPAP and medications without improvement Personal history of colonic polyps Retinal detachment x 4 TMJ disorder PAST SURGICAL HISTORY Procedure Laterality Date APPENDECTOMY 05/2001 COLONOSCOPY N/A 11/14/2016 Repeat 2018 COLONOSCOPY FLX DX W/COLLJ SPEC WHEN PFRMD 11/20/2019 Colonoscopy COLSC FLX W/REMOVAL LESION BY HOT BX FORCEPS 05/12/10 COLSC FLX W/RMVL OF TUMOR POLYP LESION SNARE TQ 11/16/13 repeat due 2015 EGD TRANSORAL BIOPSY SINGLE/MULTIPLE 11/16/13 PAST SURGICAL HISTORY OF implanted lenses both eyes RPR 1ST INGUN HRNA AGE 6 YRS/> REDUCIBLE 09/11/2017 Hernia repair, inguinal right with mesh RPR COMPLEX RETINA DETACH VITRECT &MEMBRANE PEEL x4 (2 each side) XCAPSL CTRC RMVL INSJ IO LENS PROSTH W/O ECP 2000 Social History Tobacco Use Smoking status: Never Smoker Smokeless tobacco: Never Used Substance Use Topics Alcohol use: No Drug use: No ACTIVE PROBLEM LIST Mitral Regurgitation Depression Vitamin D Deficiency JAS (obstructive sleep apnea) AHI 10.8 Myalgia Chronic Rhinitis Diarrhea Benign Neoplasm of Colon Hypertension Hypogonadism Secondary Male Hypogonadism Hyperlipemia Paranoia (Psychosis) (Hcc) Thoracic Or Lumbosacral Neuritis Or Radiculitis, Unspecified Psoriatic Arthritis (Hcc) Inguinal Hernia (Aortic Insufficiency) Mild Persistent Asthma Mixed Rhinitis Pruritic Dermatitis Aortic Dilatation (Hcc) Chronic Renal Failure, Stage 3a (Hcc) Current Outpatient Medications Medication Sig Dispense Refill amLODIPine (NORVASC) 5 mg tablet Take 1 tablet by mouth once daily. 90 tablet 1 potassium chloride ER (KLOR-CON M20) 20 mEq tablet Take 1 tablet by mouth once daily. 90 tablet 3 brimonidine (ALPHAGAN) 0.2 % ophthalmic solution Use 1 Drop in both eyes twice daily. cetirizine (ZYRTEC) 10 mg tablet Take 1 tablet by mouth once daily. 90 tablet 3 meloxicam (MOBIC) 15 mg tablet Take 1 tablet by mouth once daily. Take with food. (Patient taking differently: Take 15 mg by mouth as needed. Take with food. ) 90 tablet 1 montelukast (SINGULAIR) 10 mg tablet Take 1 tablet by mouth daily at bedtime. 90 tablet 3 triamcinolone acetonide (NASACORT AQ) 55 mcg nasal inhaler Use 2 Sprays in the nose once daily. albuterol HFA (PROAIR HFA) 90 mcg/actuation inhaler Inhale 2 Puffs as instructed every 6 hours as needed. 1 Inhaler 0 CPAP CPAP 10 cmH2O, suitable mask, tubing, humidifier, filters. Lifetime supplies. Dx: 327.23 - Obstructive sleep apnea 1 Device 0 timolol maleate (TIMOPTIC) 0.5 % dpet 1 Drop twice daily. cholecalciferol (VITAMIN D-3) 5,000 unit tab Take 1 tablet by mouth once daily. 90 tablet 1 APREMILAST (OTEZLA ORAL) Take 1 tablet by mouth twice daily. No current facility-administered medications for this visit. SPIROMETRY Never done HIV SCREENING Never done PROSTATE CANCER SCREENING DISCUSSION due on 09/05/2015 ADVANCE DIRECTIVE DISCUSSION Never done EXAM: BP 138/78 Pulse 74 Temp 37.1 C (98.7 F) (Left Tympanic) Resp 18 Wt (!) 139.5 kg (307 lb 9.6 oz) SpO2 96% BMI 41.17 kg/m Pleasant obese man in no acute distress. Alert and oriented all spheres. Normal affect and cognition. Speech normal. No deficits to learning or comprehension. Skin warm, dry, pink to lips and nailbeds. Normal turgor. Respirations regular and unlabored. HEENT: NCAT. No scleral icterus or conjunctival injection. TM's clear. Nose and oropharynx free from injection or lesion. Oral membranes moist and pink. No cervical lymph nodes. Thyroid non-tender, no masses, or enlargement. Carotids pulses 2+/4+ without bruits. No JVD with HOB at 30 degrees. Abdomen: active bowel sounds throughout, soft, nontender, no masses or organomegaly. No CVAT. Extrem: no clubbing or cyanosis. Edema: none. Extremities are warm and pink with prompt capillary refill. ASSESSMENT/PLAN: 1. Primary hypertension - ICD9: 401.9, ICD10: I10 (primary diagnosis) - good control - Continue current medication(s) - Recommended regular aerobic exercise. - Recommend home blood pressure monitoring, to bring results in on next visit - Goal of BP <130/80 2. Aortic dilatation (HCC) - ICD9: 447.70, ICD10: I77.819 recheck - ECHO - PERFLUTREN LIPID MICROSPHERES 1.1 MG/ML INJECTION IN NS 10 ML - SODIUM CHLORIDE 0.9 % (FLUSH) INJECTION SYRINGE 3. Nonrheumatic aortic valve insufficiency - ICD9: 424.1, ICD10: I35.1 - ECHO - PERFLUTREN LIPID MICROSPHERES 1.1 MG/ML INJECTION IN NS 10 ML - SODIUM CHLORIDE 0.9 % (FLUSH) INJECTION SYRINGE 4. Nonrheumatic mitral valve regurgitation - ICD9: 424.0, ICD10: I34.0 - ECHO - PERFLUTREN LIPID MICROSPHERES 1.1 MG/ML INJECTION IN NS 10 ML - SODIUM CHLORIDE 0.9 % (FLUSH) INJECTION SYRINGE 5. Mixed hyperlipidemia - ICD9: 272.2, ICD10: E78.2 - to be determined upon return of lab results - Encouraged following a low fat, low cholesterol diet. - Discussed the benefits of regular aerobic exercise and weight loss. - Encouraged following a low carbohydrate, healthy oil intake diet. - LIPID PANEL BASIC 6. JAS (obstructive sleep apnea) AHI 10.8 - ICD9: 327.23, ICD10: G47.33 compliant 7. Mild persistent asthma without complication - ICD9: 493.90, ICD10: J45.30 Mild intermittent Asthma stable - Avoidance of triggers recommended 8. Chronic renal failure, stage 3a (HCC) - ICD9: 585.3, ICD10: N18.31 stable 9. Psoriatic arthritis (HCC) - ICD9: 696.0, ICD10: L40.50 Controlled on treatment 10. Chronic idiopathic gout involving toe without tophus, unspecified laterality - ICD9: 274.02, ICD10: M1A.0790 stable Juana Wang PA-C documented in this encounter [facility] 05-24-2022 Miscellaneous Notes Just had lab work checked in January. From, my perspective doesn't need additional this soon. Thanks, Jose Manuel Wang PA-C documented in this encounter [facility] 03-27-2022 Miscellaneous Notes Patient has been identified by name and date of : Yes Patient phones for refill(s): Pending Prescriptions Disp Refills AMLODIPINE 5 MG TABLET 90 tablet 1 Sig: Take 1 tablet by mouth once daily. ANAHI: No Date of last office visit in primary care: 02/16/22 Please advise. Thank you. Carmen Garcia LPN documented in this encounter [facility] Diagnosis Pain in both knees, acute- Primary Mild persistent asthma, unspecified whether complicated Acute pain of both shoulders [facility] Diagnosis Onychomycosis- Primary Dermatophytosis of nail Paronychia of thumb, right Onychia and paronychia of finger [facility] Diagnosis Nonrheumatic aortic valve insufficiency- Primary Aortic valve disorders Nonrheumatic mitral valve regurgitation Aortic dilatation (HCC) Aortic ectasia, unspecified site Primary hypertension Unspecified essential hypertension Mixed hyperlipidemia Mild persistent asthma, unspecified whether complicated JAS (obstructive sleep apnea) AHI 10.8 Obstructive sleep apnea (adult) (pediatric) Chronic renal failure, stage 3a (HCC) Paranoia (psychosis) ([facility]) Delusional disorder Depression, unspecified depression type Discoloration of nail Other specified disease of nail Onycholysis Other specified disease of nail [facility] Diagnosis Chronic rhinitis JAS (obstructive sleep apnea) AHI 10.8 Obstructive sleep apnea (adult) (pediatric) [facility] Diagnosis Chronic idiopathic gout involving toe without tophus, unspecified laterality [facility]* Diagnosis Mixed hyperlipidemia- Primary [facility] Diagnosis Nonrheumatic aortic valve insufficiency- Primary Aortic valve disorders Nonrheumatic mitral valve regurgitation Aortic dilatation (HCC) Aortic ectasia, unspecified site Primary hypertension Unspecified essential hypertension Mixed hyperlipidemia Mild persistent asthma, unspecified whether complicated Chronic renal failure, stage 3a (HCC) Paranoia (psychosis) (HCC) Delusional disorder Psoriatic arthritis (HCC) Psoriatic arthropathy JAS (obstructive sleep apnea) AHI 10.8 Obstructive sleep apnea (adult) (pediatric) Body mass index (BMI) 40.0-44.9, adult (HCC) [facility]* Diagnosis Hyperlipidemia, unspecified hyperlipidemia type documented in this encounter [facility]* Diagnosis Pain- Primary Generalized pain [facility] Outpatient Procedure (Routine) - Authorized Specialty Diagnoses / Procedures Referred By Eric t Referred To [facility] Diagnoses Aortic dilatation (HCC) Nonrheumatic aortic valve insufficiency Nonrheumatic mitral valve regurgitation Procedures ECHO ECHO TTHRC R-T 2D W/WOM-MODE COMPL SPEC&COLR D Juana Wang PA-C [address] [place] [address] [facility] [address] [address] Referral ID Status Reason Start Date Expiration Date Visits Requested Visits Authorized [id number] Authorized Auto-Generat ed Referral 06/15/2022 06/15/2023 1 1 [facility] Summary Purpose Family History No Family History Records FoundNo Family History Records FoundNo Family History Records FoundNo Family History Records Found Advance Directives No Advanced Directives Records FoundDocuments on File Type Date Recorded Patient Ham Marker Expl anation Advance Directive(s) 11/30/2019 9:16 AM Advance Directive(s) 11/20/2019 10:42 AM Advance Directive(s) 09/11/2017 6:57 AM Advance Directive(s) 11/14/2016 11:22 AM Documents on File Type Date Recorded Patient Ham Marker Expl anation Advance Directive(s) 11/30/2019 9:16 AM Advance Directive(s) 11/20/2019 10:42 AM Advance Directive(s) 09/11/2017 6:57 AM Advance Directive(s) 11/14/2016 11:22 AM Documents on File Type Date Recorded Patient Ham Marker Expl anation Advance Directive(s) 11/30/2019 9:16 AM Documents on File Type Date Recorded Patient Ham Marker Expl anation Advance Directive(s) 11/30/2019 9:16 AM Reason for Referral Specialty Diagnoses / Procedures Referred By Contac t Referred To Contact Diagnoses Onychomycosis Procedures CONSULT TO DERMATOLOGY Ava Dodson PA-C [address] [place] [address] Referral ID Status Reason Start Date Expiration Date Visits Requested Visits Authorized [id number] Ref Not Required PCP Requested Referral 11/29/2023 1 1 Specialty Diagnoses / Procedures Referred By Contac t Referred To Contact Orthopedics Diagnoses Pain Procedures CONSULT TO ORTHOPAEDICS OFFICE/OUTPATIENT [facility] 60-74 MINUTES Gabriela Faria, SIGNS AND DISPLAYS SALESPERSON.SHELLFISH MANAGER [address] [place] [address] Referral ID Status Reason Start Date Expiration Date Visits Requested Visits Authorized [id number] Pending Review PCP Requested Referral 08/31/2023 08/30/2024 1 1 Specialty Diagnoses / Procedures Referred By Contac t Referred To Contact XR IMAGING Diagnoses Pain Procedures XR KNEE GENERAL 4V AP BOTH/PA BOTH/LAT/MERC RIGHT RADIOLOGIC EXAM KNEE COMPLETE 4/MORE VIEWS Gabriela Faria, SIGNS AND DISPLAYS SALESPERSON.SHELLFISH MANAGER [address] [place] [address] [place] [address] Referral ID Status Reason Start Date Expiration Date V isits Requested Visits Authorized [id number] Closed Auto-Generate d Referral 08/31/2023 09/29/2024 1 1 Additional Source Comments (unrecognized sect ion and content) No Status Records FoundNo Status Records FoundNo Status Records FoundNo Status Records Found INFORMATION SOURCE (unrecogn ized section and content) DATE CREATED AUTHOR AUTHOR'S ORGANIZ ATION 02/15/2022 [facility] DATE CREATED AUTHOR AUTHOR'S ORGANIZ ATION 10/16/2022 [facility] DATE CREATED AUTHOR AUTHOR'S ORGANIZ ATION 12/24/2023 [facility] Source Comments (unrecognize d section and content) In the event this informatio n is protected by the Federal Confidentiality of Alcohol and Drug Abuse Patient Records regulations: The Federal rules restrict any use of the information to criminally investigate or prosecute any alcohol or drug abuse patient.[facility] the event this information is protected by the Federal Confidentiality of Alcohol and Drug Abuse Patient Records regulations: The Federal rules restrict any use of the information to criminally investigate or prosecute any alcohol or drug abuse patient.[facility] Hospital[facility] the event this information is protected by the Federal Confidentiality of Alcohol and Drug Abuse Patient Records regulations: The Federal rules restrict any use of the information to criminally investigate or prosecute any alcohol or drug abuse patient.[facility] Hospital[facility] the event this information is protected by the Federal Confidentiality of Alcohol and Drug Abuse Patient Records regulations: The Federal rules restrict any use of the information to criminally investigate or prosecute any alcohol or drug abuse patient.[facility] HospitalIn the event this information is protected by the Federal Confidentiality of Alcohol and Drug Abuse Patient Records regulations: The Federal rules restrict any use of the information to criminally investigate or prosecute any alcohol or drug abuse patient.[facility] HospitalIn the event this information is protected by the Federal Confidentiality of Alcohol and Drug Abuse Patient Records regulations: The Federal rules restrict any use of the information to criminally investigate or prosecute any alcohol or drug abuse patient.[facility] HospitalIn the event this information is protected by the Federal Confidentiality of Alcohol and Drug Abuse Patient Records regulations: The Federal rules restrict any use of the information to criminally investigate or prosecute any alcohol or drug abuse patient.[facility] Hospital[facility] the event this information is protected by the Federal Confidentiality of Alcohol and Drug Abuse Patient Records regulations: The Federal rules restrict any use of the information to criminally investigate or prosecute any alcohol or drug abuse patient.[facility] the event this information is protected by the Federal Confidentiality of Alcohol and Drug Abuse Patient Records regulations: The Federal rules restrict any use of the information to criminally investigate or prosecute any alcohol or drug abuse patient.[facility] HospitalIn the event this information is protected by the Federal Confidentiality of Alcohol and Drug Abuse Patient Records regulations: The Federal rules restrict any use of the information to criminally investigate or prosecute any alcohol or drug abuse patient.[facility] HospitalIn the event this information is protected by the Federal Confidentiality of Alcohol and Drug Abuse Patient Records regulations: The Federal rules restrict any use of the information to criminally investigate or prosecute any alcohol or drug abuse patient.[facility] ClinicIn the event this information is protected by the Federal Confidentiality of Alcohol and Drug Abuse Patient Records regulations: The Federal rules restrict any use of the information to criminally investigate or prosecute any alcohol or drug abuse patient.[facility] HospitalIn the event this information is protected by the Federal Confidentiality of Alcohol and Drug Abuse Patient Records regulations: The Federal rules restrict any use of the information to criminally investigate or prosecute any alcohol or drug abuse patient.[facility] HospitalIn the event this information is protected by the Federal Confidentiality of Alcohol and Drug Abuse Patient Records regulations: The Federal rules restrict any use of the information to criminally investigate or prosecute any alcohol or drug abuse patient.[facility] HospitalIn the event this information is protected by the Federal Confidentiality of Alcohol and Drug Abuse Patient Records regulations: The Federal rules restrict any use of the information to criminally investigate or prosecute any alcohol or drug abuse patient.[facility] HospitalIn the event this information is protected by the Federal Confidentiality of Alcohol and Drug Abuse Patient Records regulations: The Federal rules restrict any use of the information to criminally investigate or prosecute any alcohol or drug abuse patient.[facility] HospitalIn the event this information is protected by the Federal Confidentiality of Alcohol and Drug Abuse Patient Records regulations: The Federal rules restrict any use of the information to criminally investigate or prosecute any alcohol or drug abuse patient.[facility] HospitalIn the event this information is protected by the Federal Confidentiality of Alcohol and Drug Abuse Patient Records regulations: The Federal rules restrict any use of the information to criminally investigate or prosecute any alcohol or drug abuse patient.[facility] Care Teams (unrecognized sec tion and content) Land Surveyor Relationship Specialty Start Date End Date Juana Wang PA-C [address] [place] [address] PCP - General Family Practice 09/05/17 Land Surveyor Relationship Specialty Start Date End Date Juana Wang PA-C [address] [place] [address] PCP - General Family Practice 09/05/17 Land Surveyor Relationship Specialty Start Date End Date Juana Wang PA-C [address] [place] [address] PCP - General Family Practice 09/05/17 Land Surveyor Relationship Specialty Start Date End Date Juana Wang PA-C [address] [place] [address] PCP - General Family Medicine 09/05/17 Land Surveyor Relationship Specialty Start Date End Date Juana Wang PA-C [address] [place] [address] PCP - General Family Medicine 09/05/17 Land Surveyor Relationship Specialty Start Date End Date Juana Wang PA-C [address] [place] [address] PCP - General Family Medicine 09/05/17 Land Surveyor Relationship Specialty Start Date End Date Juana Wang PA-C [address] [place] [address] PCP - General Family Medicine 09/05/17 Land Surveyor Relationship Specialty Start Date End Date Juana Wang PA-C [address] [place] [address] PCP - General Family Medicine 09/05/17 Land Surveyor Relationship Specialty Start Date End Date Juana Wang PA-C [address] [place] [address] PCP - General Family Medicine 09/05/17 Land Surveyor Relationship Specialty Start Date End Date Juana Wang PA-C [address] [place] [address] PCP - General Family Medicine 09/05/17 Land Surveyor Relationship Specialty Start Date End Date Juana Wang PA-C [address] [place], [place] [address] PCP - General Family Medicine 09/05/17 Land Surveyor Relationship Specialty Start Date End Date Juana Wang PA-C [address] [place], [place] [address] PCP - General Family Medicine 09/05/17 Land Surveyor Relationship Specialty Start Date End Date Juana Wang PA-C [address] [place], [place] [id number] PCP - General Family Medicine 09/05/17 Land Surveyor Relationship Specialty Start Date End Date Juana Wang PA-C [address] [place], [place] [id number] PCP - General Family Medicine 09/05/17 Land Surveyor Relationship Specialty Start Date End Date Juana Wang PA-C [address] [facility], [place] [id number] PCP - General Family Medicine 09/05/17 Reason for Visit (unrecogniz ed section and content) Reason Comments 6 Month Exam Reason Onset Date Comments Refill Request 10/05/2022 Reason Comments Arthritis Knee and elbow pain Reason Comments Pain Pt reported (RT) kimo mb pain rated 7, x3 mths., denied injury. Reason Comments 6 Month Exam Reason Onset Date Comments Refill Request 02/01/2023 Reason Onset Date Comments Refill Request 03/15/2023 Reason Onset Date Comments Refill Request 08/05/2023 Reason Comments right leg pain X 12 hours-pain is b ehind right knee-lifting something heavy and felt a snap FOR RECORDS PERTAINING TO PATIENTS WHO ARE OR HAVE BEEN ENROLLED IN A CHEMICAL DEPENDENCY/SUBSTANCEABUSE PROGRAM, SOME INFORMATION MAY BE OMITTED. This clinical summary was aggregated from multiple sources. Caution should be exercised in using it in the provision of clinical care. This summary normalizes information from multiple sources, and as a consequence, information in this document may materially change the coding, format and clinical context of patient data. In addition, data may be omitted in some cases. CLINICAL DECISIONS SHOULD BE BASED ON THE PRIMARY CLINICAL RECORDS. [facility] [employer] [facility]. provides no warranty or guarantee of the accuracy or completeness of information in this document.
[2024-01-01 09:42] LABS: CRP 9.85 mg/L (0.0-3.0)
== END | disposition home or self-care (01) ==
LOC: LABSPEC 08:50
PROVIDERS: PCP Physician Assistant; Visit Provider Nurse Practitioner Acute Care
DX: R21 Rash and other nonspecific skin eruption (principal)
CPT/HCPCS: 85652; 86140

== ENCOUNTER → 2024-02-27 | Outpatient (CLI) | payer MEDICARE, SELFPAY ==
[2024-02-27 17:27] LABS: Absolute Lymphocyte Count 2.15 X10^3/uL (0.83-4.51); Absolute Neutrophil Count 3.7 X10^3/uL (2.0-7.7); Basophil# 0.07 X10^3/uL; Eosinophil# 0.37 X10^3/uL; Eosinophils% 5.2 % (0-5); Hematocrit 38.3 % (40-54); Hemoglobin 12.7 g/dL (13.0-16.5); Lymphocyte # 2.15 X10^3/ul (0.83-4.51); Lymphocyte % 29.9 % (19-41); Mean Corp Hgb Conc 33.2 g/dL (32-36); Mean Corpuscular Hgb 30.2 pg (27.0-32.0); Mean Corpuscular Volume 91.2 fL (80-94); Mean Platelet Vol. 10.4 fl (6.2-12.0); Monocyte# 0.84 X10^3/uL; Monocyte% 11.7 % (0-10); NRBC Flagged by Analyzer 0 % (0-5); Neutrophil # 3.72 X10^3/uL (2.7-7.7); Neutrophil % 51.8 % (47-70); Platelet Count 288 K/mm3 (150-450); RBC Distribution Width SD 42.2 fl (35.1-43.9); White Blood Count 7.2 K/mm3 (4.4-11.0)
[2024-02-27 17:54] LABS: ALB/GLOB Ratio 0.9 RATIO (0.9-2.4); AST(SGOT) 23 U/L (15-37); Alanine Aminotransfer ALT/SGPT 20 U/L (16-61); Albumin, Serum 3.6 g/dL (3.2-5.0); Alkaline Phosphatase 62 U/L (45-117); Anion Gap 4 (5-15); BUN 14 mg/dL (7-18); BUN/Creat Ratio 10.7 RATIO (10-20); Calcium,Total 8.8 mg/dL (8.5-10.1); Chloride 107 mmol/L (98-107); Creatinine, Serum 1.31 mg/dL (0.70-1.30); EST Glomerular Filtration Rate 58 mL/min (>60); Est Glom Filt Rate - Afr Amer 70 mL/min (>60); Globulin 3.8 g/dL (2.2-4.2); Glucose 87 mg/dL (74-106); Protein, Total 7.4 g/dL (6.4-8.2); Sodium Level 140 mmol/L (136-145)
== END | disposition home or self-care (01) ==
LOC: MTLAB 15:10
PROVIDERS: PCP Physician Assistant; Referring Provider Internal Medicine Rheumatology; Visit Provider Internal Medicine Rheumatology
DX: L40.59 Other psoriatic arthropathy (principal); M79.7 Fibromyalgia; Z79.899 Other long term (current) drug therapy
CPT/HCPCS: 36415; 80053; 85025

== ENCOUNTER 2024-03-16 06:58 | Emergency (ER) | payer MEDICARE, SELFPAY ==
[2024-03-16 06:59] VITALS: BP 165/87; PULSE 95; RESP 16; TEMP 36.5; O2SAT 97; BMI 38.2
--- NOTE | 2024-03-16 07:11 | ED.VIS.LOWEX ---
HPI History of Present Illness HPI Narrative: Patient presents with bilateral knee and left foot pain that has been constant for the past year. Patient states the pain started in his right knee then spread to his left knee. Patient states that yesterday he started having some pain in his left ankle and foot. Patient states he has a history of psoriatic arthritis. Patient states he has seen a oyster opener who drained his knee and performed synovial fluid analysis. Patient reported no crystal noted in the synovial fluid. Patient states his pain got better after his knee was drained. Patient denies any trauma or injury. Patient states his pain is worse with ambulation. Patient denies any paresthesias or weakness. Chief Complaint: Lower Extremity Injury Informant: patient Onset/Context/Timing Onset: - (1 year) Context: Gradual Onset Timing: Continuous Quality of Pain: Sharp and Stabbing Location: Bilateral knees, left ankle Worsened by: Ambulation Relieved by: Arthrocentesis Associated Symptoms Associated Symptoms: Negative for Parasthesia, Weakness or Loss of Funtion [facility] Medical History (Updated 03/16/24 @ 08:[address] Ari Orta, ) Depression Psoriatic arthritis Sleep apnea Home Medications Slow Fe 47.5 mg PO DAILY 04/01/15 [History Last Taken Unknown] amlodipine 5 mg tablet 5 mg PO DAILY 04/01/15 [History Last Taken Unknown] amoxicillin 875 mg-potassium clavulanate 125 mg tablet 875 mg (0.875 x 875-125 mg) PO Q12H ##20 04/01/15 [Rx Last Taken Unknown] cholecalciferol (vitamin D3) 125 mcg (5,000 unit) capsule 5,000 unit PO DAILY 04/01/15 [History Last Taken Unknown] gabapentin 300 mg capsule 300 mg PO QHS 04/01/15 [History Last Taken Unknown] loratadine 10 mg tablet (Allergy Relief (loratadine)) 10 mg PO DAILY 04/01/15 [History Last Taken Unknown] potassium chloride 10 mEq tablet,extended release (Klor-Con) 20 meq PO DAILY 04/01/15 [History Last Taken Unknown] pravastatin 20 mg tablet 20 mg PO QHS 04/01/15 [History Last Taken Unknown] tramadol 50 mg tablet 50 mg PO Q4H PRN PRN Pain 04/01/15 [History Last Taken Unknown] Allergy/AdvReac Type Severity Reaction Status Date / Time codeine Allergy NEEDS Verified 03/16/24 07:05 FOLLOW-UP pseudoephedrine Allergy PT UNSURE Verified 03/16/24 07:05 [From Sudafed] OF REACTION sumatriptan [From Imitrex] Allergy Other Verified 03/16/24 07:05 sumatriptan succinate Allergy Other Verified 03/16/24 07:05 [From Imitrex] Surgical History (Updated 03/16/24 @ 07:[address] Ari Orta DO) Hx of eye surgery Social History Smoking Status: Never smoker ROS ROS ED Constitutional Constitutional ED: Denies chills or fever(s) Eyes Eyes: Denies blurry vision or change in vision ENT ENT ED: Denies rhinorrhea or sore throat Cardiovascular Cardiovascular: Denies chest pain or palpitations Respiratory/Chest Respiratory/Chest: Reports cough; Denies dyspnea Gastrointestinal Gastrointestinal: Denies nausea or vomiting Genitourinary Genitourinary ED: Denies dysuria or hematuria Musculoskeletal Musculoskeletal: Denies back pain or neck pain Integumentary Denies abscess or rash Neurologic Neurologic: Denies headache(s) or weakness Allergic/Immunologic Allergic/Immunologic ED: Denies mouth swelling or urticaria EXAM Physical Exam Const Vital Signs: 03/16/24 06:59 Temperature 97.7 F L Temperature Source Temporal Pulse Rate 95 Respiratory Rate 16 Blood Pressure 165/87 H Blood Pressure Mean 113 Pulse Ox 97 Oxygen Delivery Method Room Air Positive well nourished, well developed and obese General Appearance ED: well developed and NAD Nutritional Appearance: obese HEENT Reports moist mucous membranes Neck full ROM and supple Extremity Extremity Narrative: There is tenderness and edema over the left ankle. There is no deformity noted. Range of motion was limited in all motions of the left ankle secondary to pain. There is also mild tenderness of the knees bilaterally. There is no effusion noted. There is good range of motion of the knees. Pedal pulses are equal bilaterally. Sensation was intact to light touch bilaterally in the lower extremities. Strength is 5/5 bilaterally in the lower extremities. There is no calf tenderness noted. Neuro oriented x3, CN's II-XII intact bilaterally, moves all extremities and no sensory deficits noted Sensorium / Orientation: alert Motor Exam: strength 5/5 throughout Psych mental status grossly normal MDM MDM MDM Narrative Medical decision making narrative: Differential diagnosis includes rheumatoid arthritis, psoriatic arthritis, degenerative arthritis, sprain, and occult fracture. X-rays of the bilateral knees will be obtained to assess for arthritis and occult fracture. X-rays of the left ankle will be obtained to assess for occult fracture and degenerative arthritis. Radiography Diagnostic Testing: Clinical Impression(s) from Imaging Studies Ankle X-Ray 03/16/24 08:10 IMPRESSION: Diffuse soft tissue swelling. Electronically Signed: Kwasi Osborne MD at 8:29 EDT , Knee X-Ray 03/16/24 08:10 IMPRESSION: Degenerative arthrosis. Electronically Signed: Kwasi Osborne MD at 8:28 EDT , Knee X-Ray 03/16/24 08:10 IMPRESSION: Degenerative arthrosis. Electronically Signed: Kwasi Osborne MD at 8:28 EDT , X-rays of the left ankle were obtained. There are 3 views. On my independent interpretation, there is no acute fracture. There is no dislocation. There is diffuse soft tissue swelling. Radiologist also interpreted the x-rays and agrees. X-rays of the left knee were obtained. There are 2 views. On my independent interpretation, there is no acute fracture. There is some degenerative arthritis noted. Radiologist also interpreted the x-ray and agrees. X-rays of the right knee were obtained. There are 2 views. On my independent interpretation, there is no acute fracture. There are some degenerative changes noted. Radiologist also interpreted the x-ray and agrees. Treatment and Re-Evaluation Narrative: Patient was given a dose of Toradol here. Patient was feeling somewhat better on reevaluation. Patient was given a walking boot to his left ankle. Patient was instructed to ice and elevate his knees and left ankle. Patient was instructed to continue with his tramadol as needed for pain. Patient was instructed that he could supplement this with Tylenol or ibuprofen. Patient was instructed to follow-up with his primary care physician in 5 to 7 days. Patient understood and was agreeable with the plan. All questions were answered. Discharge Plan Triage Chief Complaint: Lower Extremity Injury ED Provider: Ari Orta Dx/Rx/DC Orders Clinical Impression: Acute left ankle pain, Fibromyalgia, Psoriatic arthritis, Bilateral knee pain Instructions: ED Pain, Acute, Uncertain Cause Prescriptions: No Action potassium chloride [Klor-Con 10] 10 MEQ tablet extended release 20 meq PO DAILY amlodipine 5 MG tablet 5 mg PO DAILY tramadol 50 MG tablet 50 mg PO Q4H PRN PRN (Reason: Pain) gabapentin 300 MG capsule 300 mg PO QHS pravastatin 20 MG tablet 20 mg PO QHS cholecalciferol (vitamin D3) 5,000 UNIT capsule 5,000 unit PO DAILY loratadine [Allergy Relief (loratadine)] 10 MG tablet 10 mg PO DAILY Slow Fe 47.5 mg PO DAILY amoxicillin-pot clavulanate 875 MG tablet 875 mg PO Q12H Qty: 20 0RF Primary Care Provider: Juana Wang Referrals: Juana Wang, PA [Primary Care Provider] - 3-5 Days Disposition Disposition: Home, Self Care
[2024-03-16] MEDS: Ketorolac 30 MG/ML Syringe IM (08:01)
--- NOTE | 2024-03-16 08:10 | RAD_ITS ---
STUDY: X-RAY - LEFT KNEE REASON FOR EXAM: Male, 68 years old. Injury/Pain TECHNIQUE: 2 view(s) of the knee. COMPARISON: None. FINDINGS: Normal visualized distal femur. Normal visualized proximal tibia and fibula. Normal proximal tibiofibular articulation. There is mild degenerative arthrosis of the medial femorotibial compartment. Normal lateral femorotibial compartment. There is moderate degenerative arthrosis of the patellofemoral articulation. The soft tissue structures are unremarkable. RAD/Knee 1 or 2 Views IMPRESSION: Degenerative arthrosis. Electronically Signed: Kwasi Osborne MD at 8:28 EDT ,
--- NOTE | 2024-03-16 08:10 | RAD_ITS ---
STUDY: X-RAY - RIGHT KNEE REASON FOR EXAM: Male, 68 years old. PAIN TECHNIQUE: 2 view(s) of the knee. COMPARISON: None. FINDINGS: Normal visualized distal femur. Normal visualized proximal tibia and fibula. Normal proximal tibiofibular articulation. Normal medial femorotibial compartment. Normal lateral femorotibial compartment. There is mild degenerative arthrosis of the patellofemoral articulation. The soft tissue structures are unremarkable. RAD/Knee 1 or 2 Views IMPRESSION: Degenerative arthrosis. Electronically Signed: Kwasi Osborne MD at 8:28 EDT ,
--- NOTE | 2024-03-16 08:10 | RAD_ITS ---
STUDY: X-RAY - LEFT ANKLE REASON FOR EXAM: Male, 68 years old. Injury/Pain TECHNIQUE: 3 view(s) of the ankle. COMPARISON: None. FINDINGS: Normal visualized distal tibia and fibula. Normal medial and lateral malleoli. Normal tibiotalar articulation and ankle mortise. Normal visualized talus and calcaneus. The visualized subtalar, talonavicular, calcaneocuboid and tarsal articulations are normal. Diffuse soft tissue swelling. RAD/Ankle min 3 Views IMPRESSION: Diffuse soft tissue swelling. Electronically Signed: Kwasi Osborne MD at 8:29 EDT ,
[2024-03-16 08:56] VITALS: BP 160/96; PULSE 88; RESP 16; TEMP 35.7; O2SAT 98
== END 2024-03-16 08:59 | disposition home or self-care (01) ==
PROVIDERS: Emergency Provider Emergency Medicine; PCP Physician Assistant; Visit Provider Emergency Medicine
DX: M25.572 Pain in left ankle and joints of left foot (principal); L40.50 Arthropathic psoriasis, unspecified; M79.7 Fibromyalgia; M25.561 Pain in right knee; M25.562 Pain in left knee; G47.30 Sleep apnea, unspecified; E66.9 Obesity, unspecified
CPT/HCPCS: 73560; 73610; 96372; 99283

== ENCOUNTER → 2024-05-22 | Outpatient (CLI) | payer MEDICARE, SELFPAY ==
[2024-05-22 12:25] LABS: Absolute Neutrophil Count 5.6 X10^3/uL (2.0-7.7); Basophil# 0.06 X10^3/uL; Basophil% 0.9 % (0-1); Eosinophil# 0.06 X10^3/uL; Eosinophils% 0.9 % (0-5); Hematocrit 41.1 % (40-54); Hemoglobin 13.7 g/dL (13.0-16.5); Lymphocyte % 14.2 % (19-41); Mean Corp Hgb Conc 33.3 g/dL (32-36); Mean Platelet Vol. 10.1 fl (6.2-12.0); Monocyte% 4.3 % (0-10); NRBC Flagged by Analyzer 0 % (0-5); Neutrophil # 5.58 X10^3/uL (2.7-7.7); Neutrophil % 79.4 % (47-70); Platelet Count 299 K/mm3 (150-450); RBC Distribution Width SD 40.6 fl (35.1-43.9); Red Blood Count 4.42 M/mm3 (4.6-6.2)
[2024-05-22 13:02] LABS: ALB/GLOB Ratio 0.9 RATIO (0.9-2.4); AST(SGOT) 15 U/L (15-37); Alanine Aminotransfer ALT/SGPT 20 U/L (16-61); Albumin, Serum 3.7 g/dL (3.2-5.0); Alkaline Phosphatase 60 U/L (45-117); Anion Gap 11 (5-15); BUN 12 mg/dL (7-18); BUN/Creat Ratio 8.4 RATIO (10-20); Chloride 105 mmol/L (98-107); Creatinine, Serum 1.43 mg/dL (0.70-1.30); EST Glomerular Filtration Rate 52 mL/min (>60); Est Glom Filt Rate - Afr Amer 63 mL/min (>60); Globulin 4.2 g/dL (2.2-4.2); Glucose 171 mg/dL (74-106); Protein, Total 7.9 g/dL (6.4-8.2); Sodium Level 138 mmol/L (136-145)
== END | disposition home or self-care (01) ==
LOC: MTLAB 10:11
PROVIDERS: PCP Physician Assistant; Referring Provider Internal Medicine Rheumatology; Visit Provider Internal Medicine Rheumatology
DX: L40.59 Other psoriatic arthropathy (principal); Z79.899 Other long term (current) drug therapy
CPT/HCPCS: 36415; 80053; 85025

== ENCOUNTER 2024-07-28 17:04 | Inpatient (IN) | payer MEDICARE, SELFPAY ==
[2024-07-28 17:37] VITALS: BP 168/87; PULSE 114; RESP 20; TEMP 36.4; O2SAT 94; BMI 36.2
--- NOTE | 2024-07-28 17:42 | EKG12_ITS ---
Test Reason : PALPITATIONS Blood Pressure : / mmHG Vent. Rate : 144 BPM Atrial Rate : 000 BPM P-R Int : 000 ms QRS Dur : 140 ms QT Int : 298 ms P-R-T Axes : 000 128 -12 degrees QTc Int : 461 ms Critical Test Result: High HR Atrial fibrillation with rapid ventricular response Right bundle branch block Abnormal ECG Confirmed by Dimas Callahan ([id number]), supervising film or videotape editor BRITTA BAILEY ([id number]) on 07/29/2024 10:07:38 AM Referred By: Confirmed By:Dimas Callahan
--- NOTE | 2024-07-28 17:44 | ED.VIS.CHEST ---
HPI History of Present Illness Chief Complaint: Palpitations Informant: patient Onset/Context/Timing Onset: Days Activity at onset: unknown Timing: Continuous Worsened By: Nothing Relieved By: Nothing Associated Symptoms: Positive for Nausea and Cough; Negative for Vomiting, Diaphoresis, Dyspnea, Fever, Lightheadedness, Acid Reflux or Palpitations Narrative Narrative: Patient presents with palpitations that he noticed today. Patient states that he saw his primary care physician today who noticed that he was in atrial fibrillation. The patient was then referred to the emergency department. Patient states he does not feel his heart racing or skipping beats. Patient denies any chest pain. Patient does admit to some nausea but denies any vomiting. Patient admits to mild cough. Patient states she has been thirsty more frequently recently. Patient denies any urinary frequency. CVD Risk Factors: Positive for Hypercholesterolemia; Negative for Hypertension, Diabetes, Family History 1' </=55 or Smoking PE Risk Factors: Negative for Recent Travel/Surgery, Recent Immobilization, Prior DVT or PE, Cancer or OCP + Smoking + >/=35 PFSH PFSH Medical History (Updated 07/28/24 @ 21:[address] Ari Orta, DO) Psoriatic arthritis Depression Sleep apnea Home Medications ?Medication ?Instructions ?Recorded ?Last Taken ?Type Slow Fe 47.5 mg PO DAILY 04/01/15 Unknown History amlodipine 5 mg tablet 5 mg PO DAILY 04/01/15 Unknown History amoxicillin 875 mg-potassium 875 mg PO Q12H ##20 04/01/15 Unknown Rx clavulanate 125 mg tablet cholecalciferol (vitamin D3) 125 5,000 unit PO DAILY 04/01/15 Unknown History mcg (5,000 unit) capsule gabapentin 300 mg capsule 300 mg PO QHS 04/01/15 Unknown History loratadine 10 mg tablet (Allergy 10 mg PO DAILY 04/01/15 Unknown History Relief (loratadine)) potassium chloride 10 mEq 20 meq PO DAILY 04/01/15 Unknown History tablet,extended release (Klor-Con) pravastatin 20 mg tablet 20 mg PO QHS 04/01/15 Unknown History tramadol 50 mg tablet 50 mg PO Q4H PRN PRN Pain 04/01/15 Unknown History Allergy/AdvReac Type Severity Reaction Status Date / Time codeine Allergy NEEDS Verified 03/16/24 07:05 FOLLOW-UP pseudoephedrine (From Allergy PT UNSURE Verified 03/16/24 07:05 Sudafed) OF REACTION sumatriptan (From Imitrex) Allergy Other Verified 03/16/24 07:05 sumatriptan succinate (From Allergy Other Verified 03/16/24 07:05 Imitrex) Surgical History (Updated 07/28/24 @ 18:[address] Ari Orta DO) S/P left inguinal herniorrhaphy Hx of eye surgery Social History Smoking Status: Never smoker ROS ROS ED Constitutional Constitutional ED: Denies chills or fever(s) Eyes Eyes: Denies blurry vision or change in vision ENT ENT ED: Denies rhinorrhea or sore throat Cardiovascular Cardiovascular: Denies chest pain or palpitations Respiratory/Chest Respiratory/Chest: Denies cough or dyspnea Gastrointestinal Gastrointestinal: Denies nausea or vomiting Genitourinary Genitourinary ED: Denies dysuria or hematuria Musculoskeletal Musculoskeletal: Denies back pain or neck pain Integumentary Denies abscess or rash Neurologic Neurologic: Denies headache(s) or weakness Allergic/Immunologic Allergic/Immunologic ED: Denies mouth swelling or urticaria EXAM Physical Exam Const Vital Signs: 07/28/24 17:37 07/28/24 18:23 07/28/24 19:45 Temperature 97.6 F L Temperature Source Temporal Pulse Rate 114 H 79 89 Respiratory Rate 20 H 19 H 15 Blood Pressure 168/87 H 121/71 H 129/91 H Blood Pressure Mean 114 87 103 Pulse Ox 94 95 98 Oxygen Delivery Method Room Air Room Air Room Air Positive well nourished and well developed General Appearance ED: well developed and NAD HEENT Reports moist mucous membranes Neck supple and no JVD Resp normal respiratory effort and clear to auscultation bilaterally Cardio Rate: tachycardic Rhythm: abnormal rhythm irregularly irregular GI soft to palpation, non-tender and non-distended Neuro oriented x3, CN's II-XII intact bilaterally and no sensory deficits noted Sensorium / Orientation: awake and alert Motor Exam: strength 5/5 throughout Psych mental status grossly normal Heart Score History: Slightly/Non-Suspicious ECG: Nonspecific Repolarization Age: >/= 65 years Risk Factors: 1 or 2 Risk Factors Score: 4 MDM MDM MDM Narrative Medical decision making narrative: Differential diagnosis includes cardiac dysrhythmia, cardiac ischemia, pneumonia, pneumothorax, electrolyte abnormality, dehydration, anemia, and coagulopathy. EKG will be obtained to assess for cardiac dysrhythmia and cardiac ischemia. Chest x-ray will be obtained to assess for pneumonia or pneumothorax. CBC will be obtained to assess for leukocytosis and anemia. Comprehensive metabolic profile will be obtained to assess for PAC function, renal function, and electrolyte abnormality. High-sensitivity troponin will be obtained to assess for cardiac ischemia. 2-hour repeat high-sensitivity troponin will be obtained to assess for ongoing cardiac ischemia. PT with INR and PTT will be obtained to assess for coagulopathy. Urinalysis will be obtained to assess for urinary tract infection and hematuria. Lab Data Attestation: I reviewed the patient's lab results. Lab results narrative: CBC was reviewed and was within normal limits. PT with INR and PTT were reviewed and were within normal limits. Comprehensive metabolic profile was reviewed. Creatinine was slightly elevated at 1.61. Initial high-sensitivity troponin was reviewed and was normal at 8. Urinalysis was reviewed. There is no evidence of urinary tract infection or hematuria. 2-hour repeat high-sensitivity troponin was reviewed and was also normal at 8. Labs: Laboratory Results - last 24 hr 07/28/24 07/28/24 07/28/24 17:59 18:51 20:16 WBC 7.9 RBC 4.24 L Hgb 13.0 Hct 39.5 L MCV 93.2 MCH 30.7 MCHC 32.9 RDW Std Deviation 42.9 RDW Coeff of Perri 12.6 Plt Count 276 MPV 9.9 Immature Gran % (Auto) 0.400 Neut % (Auto) 59.9 Lymph % (Auto) 24.1 [place] % (Auto) 10.6 H Eos % (Auto) 4.2 Baso % (Auto) 0.8 Absolute Neuts (auto) 4.7 Absolute Lymphs (auto) 1.91 Nucleated RBC % 0 PT 13.9 INR 1.1 APTT 31.9 Sodium 142 Potassium 3.8 Chloride 109 H Carbon Dioxide 25.0 Anion Gap 8 BUN 12 Creatinine 1.61 H Estim Creat Clear Calc 63.30 Est GFR (MDRD) Af Amer 55 L Est GFR (MDRD) Non-Af 46 L BUN/Creatinine Ratio 7.5 L Glucose 103 Calcium 9.2 Total Bilirubin 0.60 AST 15 ALT 17 Alkaline Phosphatase 58 Troponin I High Sens 8 8 Total Protein 7.8 Albumin 3.9 Globulin 3.9 Albumin/Globulin Ratio 1.0 Urine Color Yellow Urine Clarity Clear Urine pH 6.5 Ur Specific [place] 1.020 Urine Protein 15 H Urine Glucose (UA) Normal Urine Ketones Negative Urine Occult Blood Negative Urine Nitrite Negative Urine Bilirubin Negative Urine Urobilinogen Normal Ur Leukocyte Esterase 25 H Urine RBC 0 SEEN Urine WBC 0 SEEN Ur Squamous Epith Cells 0 SEEN Urine Bacteria 0 SEEN Urine Mucus 0 SEEN Radiography Chest X-Ray - ED: 1 View, Read by ED Physician, Read by Radiologist and No Acute Disease Diagnostic Testing: Clinical Impression(s) from Imaging Studies Chest X-Ray 07/28/24 17:50 IMPRESSION: No radiographic evidence of acute cardiopulmonary disease. Electronically Signed: Glen Cohen MD at 18:30 EDT , Portable 1 view chest x-ray was obtained. On my independent interpretation, lung whitt are clear. There is normal cardiac silhouette. Bony thorax is normal. There is no acute process noted. Radiologist also interpreted the x-ray and agrees. EKG Initial EKG: Attestation: I personally reviewed and interpreted this EKG as follows: Interpretation: Atrial Fibrillation (144) and RBBB Comments: EKG was obtained. On my independent interpretation, shows atrial fibrillation with a rate of 144. QRS interval is prolonged at 140 ms. QTc interval was 461 ms. There is right axis deviation at 128. There is right bundle branch block pattern noted. There are nonspecific ST-T wave changes noted. Prior EKG tracings: not available for review Prior: No Prior Management Discussion w/another healthcare provider: Hospitalist Treatment and Re-Evaluation :: Patient was given IV fluids and Cardizem. Patient's heart rate improved but he remained in atrial fibrillation. Since the patient has never had history of atrial fibrillation, I recommended admission to the hospital. Case was discussed with the hospitalist. He will admit the patient to his service for observation. Patient understood and was agreeable with the plan. All questions were answered. Discharge Plan Triage Chief Complaint: Palpitations ED Provider: Ari Orta Dx/Rx/DC Orders Clinical Impression: Atrial fibrillation, new onset, Elevated blood pressure reading, Mild dehydration Prescriptions: No Action potassium chloride [Klor-Con 10] 10 MEQ tablet extended release 20 meq PO DAILY amlodipine 5 MG tablet 5 mg PO DAILY tramadol 50 MG tablet 50 mg PO Q4H PRN PRN (Reason: Pain) gabapentin 300 MG capsule 300 mg PO QHS pravastatin 20 MG tablet 20 mg PO QHS cholecalciferol (vitamin D3) 5,000 UNIT capsule 5,000 unit PO DAILY loratadine [Allergy Relief (loratadine)] 10 MG tablet 10 mg PO DAILY Slow Fe 47.5 mg PO DAILY amoxicillin-pot clavulanate 875 MG tablet 875 mg PO Q12H Qty: 20 0RF Primary Care Provider: Juana Wang Referrals: Juana Wang PA [Primary Care Provider] - Print Language: Slovak Disposition Disposition: Acute Care [facility]
--- NOTE | 2024-07-28 17:50 | RAD_ITS ---
EXAM: XR CHEST, 1 VIEW CLINICAL INDICATION: palpitations TECHNIQUE: Frontal view of the chest. COMPARISON: 12/21/2012 FINDINGS: LUNGS AND PLEURAL SPACES: Unremarkable. No consolidation or edema. No pneumothorax. No effusion. HEART: Unremarkable. Cardiac silhouette not enlarged. MEDIASTINUM: Central airways and mediastinal contour are unremarkable. BONES/JOINTS: Unremarkable. No acute fracture. SOFT TISSUES: Unremarkable. RAD/Chest 1 View (Portable) IMPRESSION: No radiographic evidence of acute cardiopulmonary disease. Electronically Signed: Glen Cohen MD at 18:30 EDT ,
[2024-07-28] MEDS: dilTIAZem 25 MG/5 ML Vial IV BOLUS (17:56)
[2024-07-28] MEDS: 0.9% Normal Saline (1000mL) 1,000 ML 1000 ML IV (17:56)
[2024-07-28 18:07] LABS: Absolute Lymphocyte Count 1.91 X10^3/uL (0.83-4.51); Absolute Neutrophil Count 4.7 X10^3/uL (2.0-7.7); Basophil# 0.06 X10^3/uL; Basophil% 0.8 % (0-1); Eosinophil# 0.33 X10^3/uL; Eosinophils% 4.2 % (0-5); Hematocrit 39.5 % (40-54); Lymphocyte # 1.91 X10^3/ul (0.83-4.51); Lymphocyte % 24.1 % (19-41); Mean Corp Hgb Conc 32.9 g/dL (32-36); Mean Corpuscular Hgb 30.7 pg (27.0-32.0); Mean Corpuscular Volume 93.2 fL (80-94); Mean Platelet Vol. 9.9 fl (6.2-12.0); Monocyte# 0.84 X10^3/uL; Monocyte% 10.6 % (0-10); NRBC Flagged by Analyzer 0 % (0-5); Neutrophil # 4.74 X10^3/uL (2.7-7.7); Neutrophil % 59.9 % (47-70); Platelet Count 276 K/mm3 (150-450); RBC Distribution Width CV 12.6 % (11.6-14.6); RBC Distribution Width SD 42.9 fl (35.1-43.9); Red Blood Count 4.24 M/mm3 (4.6-6.2); White Blood Count 7.9 K/mm3 (4.4-11.0)
[2024-07-28 18:16] LABS: International Normalized Ratio 1.1; Partial Thromboplast Time 31.9 Seconds (24.1-36.2); Prothrombin Time (Protime)PT. 13.9 SECONDS (11.7-14.9)
[2024-07-28 18:23] VITALS: BP 121/71; PULSE 79; RESP 19; O2SAT 95
[2024-07-28 18:26] LABS: AST(SGOT) 15 U/L (15-37); Alanine Aminotransfer ALT/SGPT 17 U/L (16-61); Albumin, Serum 3.9 g/dL (3.2-5.0); Alkaline Phosphatase 58 U/L (45-117); Anion Gap 8 (5-15); BUN 12 mg/dL (7-18); BUN/Creat Ratio 7.5 RATIO (10-20); Calcium,Total 9.2 mg/dL (8.5-10.1); Chloride 109 mmol/L (98-107); Creatinine, Serum 1.61 mg/dL (0.70-1.30); EST Glomerular Filtration Rate 46 mL/min (>60); Est Glom Filt Rate - Afr Amer 55 mL/min (>60); Globulin 3.9 g/dL (2.2-4.2); Glucose 103 mg/dL (74-106); Potassium 3.8 mmol/L (3.5-5.1); Protein, Total 7.8 g/dL (6.4-8.2); Sodium Level 142 mmol/L (136-145); Troponin-I HS (w/2H Reflex) 8 pg/mL (3.0-78.0)
[2024-07-28 19:13] LABS: Bacteria 0 SEEN /hpf (None Seen); Mucous, Urine 0 SEEN /hpf (<or=2+); Red Blood Cells-Urine 0 SEEN /hpf (0-5); Squamous Epithelial Cells - UA 0 SEEN /hpf (0-5); White Blood Cells 0 SEEN /hpf (0-5)
[2024-07-28 19:14] LABS: Color, Urine Yellow (Yellow); Glucose, Dipstick Normal (Normal); Ketone-Dipstick Negative (Negative); Leukocyte Esterase-Dipstick 25 /ul (Negative); Nitrite-Dipstick Negative (Negative); Occult Blood-Urine Negative /ul (Negative); Protein-Dipstick 15 mg/dl (Negative); Urine Bilirubin Dipstick Negative (Negative); Urine Clarity Clear (Clear); Urine Urobilinogen Normal (Normal); Urine pH 6.5 (5.0 - 8.0)
[2024-07-28 19:45] VITALS: BP 129/91; PULSE 89; RESP 15; O2SAT 98
[2024-07-28 20:03] LABS: Reflex Troponin-HS? (from REC) Y
[2024-07-28 20:54] LABS: Troponin-I HS 8 pg/mL (3.0-78.0)
[2024-07-28 21:00] VITALS: BP 136/79; PULSE 100; RESP 18; O2SAT 96
--- NOTE | 2024-07-28 21:22 | PCM.HP.STD ---
[facility] - General General Date of Admission: 07/28/24 Date of Service: 07/28/24 Chief Complaint: Palpitations and Nausea. HPI Narrative SALUD MESA, is a 68 M with a past medical history of essential hypertension, hyperlipidemia, obesity; with BMI of 36.2 this admission, JAS, history of psoriatic arthritis, BRITTANIE, history of Left inguinal hernia repair, history of appendectomy, history of eye surgery, fibromyalgia, depression and OA who presents to [facility] ER complaining of palpitations and nausea. Mr. Mesa reports his symptoms began earlier today with the abrupt-onset of palpitations so he went to see his PCP and was subsequently diagnosed with apparently New-onset Atrial Fibrillation with RVR in the ~140 bpm range resulting in him being referred to the ER for further evaluation and treatment. He admits to nausea but he denies associated fever, chills, vomiting, chest pain, SOB, recent illness, recent injury or recent changes to his medical regimen but he does admit his house is infested with bed bugs in addition to his five cats. In the ER he was diagnosed with New-onset Atrial Fibrillation with RVR and he was then admitted to the PCU under observation status for a stay that is expected to be less than 2 midnights. [facility] Medical History (Updated 07/29/24 @ 01:[address] Salud Miller, DO) CPAP (continuous positive airway pressure) dependence Asthma Atrial fibrillation Irregular heart beat Hypertension Migraines Psoriatic arthritis Depression Sleep apnea Home Medications ?Medication ?Instructions ?Recorded ?Last Taken ?Type Slow Fe 47.5 mg PO DAILY 04/01/15 Unknown History amlodipine 5 mg tablet 5 mg PO DAILY 04/01/15 Unknown History cholecalciferol (vitamin D3) 125 5,000 unit PO DAILY 04/01/15 Unknown History mcg (5,000 unit) capsule loratadine 10 mg tablet (Allergy 10 mg PO DAILY 04/01/15 Unknown History Relief (loratadine)) potassium chloride 10 mEq 20 meq PO DAILY 04/01/15 Unknown History tablet,extended release (Klor-Con) pravastatin 20 mg tablet 20 mg PO QHS 04/01/15 Unknown History tramadol 50 mg tablet 50 mg PO Q4H PRN PRN Pain 04/01/15 Unknown History brimonidine 0.2 % eye drops 1 drp ophthalmic (eye) BID 07/28/24 Unknown History cetirizine 10 mg tablet 10 mg PO DAILY 07/28/24 Unknown History montelukast 10 mg tablet 10 mg PO QHS 07/28/24 Unknown History ondansetron 4 mg disintegrating 4 mg PO Q8H PRN PRN n/v 07/28/24 Unknown History tablet prednisone 10 mg tablet 10 mg PO DAILY PRN gout 07/28/24 Unknown History timolol maleate 0.5 % eye drops 1 drp ophthalmic (eye) BID 07/28/24 Unknown History apremilast 20 mg tablet (Otezla) 20 mg PO BID 07/29/24 Unknown History Allergy/AdvReac Type Severity Reaction Status Date / Time codeine Allergy NEEDS Verified 03/16/24 07:05 FOLLOW-UP pseudoephedrine (From Allergy PT UNSURE Verified 03/16/24 07:05 Sudafed) OF REACTION sumatriptan (From Imitrex) Allergy Other Verified 03/16/24 07:05 sumatriptan succinate (From Allergy Other Verified 03/16/24 07:05 Imitrex) Surgical History History of appendectomy S/P left inguinal herniorrhaphy Hx of eye surgery Social History Smoking Status: Never smoker ROS ROS Narrative Review of Systems: Constitutional: Patient denies fever or chills. Eyes: Patient denies changes in vision or discharge from eyes. ENT: Patient denies runny nose, sore throat or ear pain. CV: Patient admits to palpitations but he denies chest pain or heart racing. Resp: Patient denies SOB or cough. GI: Patient denies abdominal pain, nausea, vomiting, diarrhea or constipation. : Patient denies dysuria, hematuria or urinary hesitancy. MSK: Patient denies neck pain or back pain. Skin: Patient denies rash, abscess or jaundice. Psych: Patient denies symptoms of uncontrolled depression or anxiety. Neuro: Patient denies headache, paresthesias or focal neurologic deficits. Hematology: Patient denies easy bleeding or easy bruisability. Endocrinology: Patient denies polyuria, polydipsia or polyphagia. 14 point ROS otherwise negative except for positives noted above. Vital Signs Vital Signs Vital Signs: 07/28/24 17:37 07/28/24 18:23 07/28/24 19:45 Temperature 97.6 F L Temperature Source Temporal Pulse Rate 114 H 79 89 Respiratory Rate 20 H 19 H 15 Blood Pressure 168/87 H 121/71 H 129/91 H Blood Pressure Mean 114 87 103 Pulse Ox 94 95 98 Oxygen Delivery Method Room Air Room Air Room Air Weight Weight: 282 lb 3.067 oz Body Mass Index (BMI) 36.2 Physical Exam Const alert, oriented x3 and no apparent distress Constitutional Narrative: Obese. General Appearance: cooperative HEENT normocephalic, head/scalp atraumatic, hearing grossly normal bilaterally and moist oral mucous membranes Eyes PERRL and EOMs intact bilaterally Neck no lymphadenopathy and supple Resp normal respiratory effort, no retractions, no use of accessory muscles and clear to auscultation bilaterally Cardio Cardio Narrative: Irregularly Irregular @ ~100 bpm. GI normal to inspection, nondistended, normoactive bowel sounds, soft to palpation, non-tender and non-distended GI Narrative: Obese. Extremity normal to inspection and full ROM Skin Skin Narrative: Patient has no evidence of rash, abscess or jaundice. Neuro oriented x3, CN's II-XII intact bilaterally, moves all extremities and no focal motor deficits Sensorium / Orientation: awake, alert, oriented to person, oriented to place and oriented to time Speech: speech normal Psych affect normal Results Medical Records Data Attestation: I reviewed the patient's medical records Lab / Micro Data Attestation: I reviewed the patient's lab results. 07/28/24 17:59 07/28/24 17:59 Labs: Laboratory Results - last 24 hr 07/28/24 17:59: WBC 7.9, RBC 4.24 L, Hgb 13.0, Hct 39.5 L, MCV 93.2, MCH 30.7, MCHC 32.9, RDW Std Deviation 42.9, RDW Coeff of Perri 12.6, Plt Count 276, MPV 9.9, Immature Gran % (Auto) 0.400, Neut % (Auto) 59.9, Lymph % (Auto) 24.1, [place] % (Auto) 10.6 H, Eos % (Auto) 4.2, Baso % (Auto) 0.8, Absolute Neuts (auto) 4.7, Absolute Lymphs (auto) 1.91, Nucleated RBC % 0, PT 13.9, INR 1.1, APTT 31.9, Sodium 142, Potassium 3.8, Chloride 109 H, Carbon Dioxide 25.0, Anion Gap 8, BUN 12, Creatinine 1.61 H, Estim Creat Clear Calc 63.30, Est GFR (MDRD) Af Amer 55 L, Est GFR (MDRD) Non-Af 46 L, BUN/Creatinine Ratio 7.5 L, Glucose 103, Calcium 9.2, Total Bilirubin 0.60, AST 15, ALT 17, Alkaline Phosphatase 58, Troponin I High Sens 8, Total Protein 7.8, Albumin 3.9, Globulin 3.9, Albumin/Globulin Ratio 1.0 07/28/24 18:51: Urine Color Yellow, Urine Clarity Clear, Urine pH 6.5, Ur Specific [place] 1.020, Urine Protein 15 H, Urine Glucose (UA) Normal, Urine Ketones Negative, Urine Occult Blood Negative, Urine Nitrite Negative, Urine Bilirubin Negative, Urine Urobilinogen Normal, Ur Leukocyte Esterase 25 H, Urine RBC 0 SEEN, Urine WBC 0 SEEN, Ur Squamous Epith Cells 0 SEEN, Urine Bacteria 0 SEEN, Urine Mucus 0 SEEN 07/28/24 20:16: Troponin I High Sens 8 Imaging Radiology Impression Chest X-Ray 07/28/24 17:50 IMPRESSION: No radiographic evidence of acute cardiopulmonary disease. Electronically Signed: Glen Cohen MD at 18:30 EDT Reading Location ID and State: [address] [place] [address] Tel , Service support , Assessment & Plan Assessment/Plan (1) Atrial fibrillation with RVR: (2) Obesity (BMI 30-39.9): (3) JAS (obstructive sleep apnea): (4) Essential hypertension: (5) Psoriatic arthritis: (6) Depression: QUALIFIERS: Depression Type: unspecified Qualified Code(s): F32.A - Depression, unspecified (7) Fibromyalgia: PLAN: Plan 1. New-onset Atrial Fibrillation with RVR - Admit to PCU under observation status. Continue Cardizem drip to keep heart rate < 100 bpm. Give full-dose Lovenox to prevent CVA. Check TSH. Check echocardiogram to evaluate LVEF. Finally, we will consult [facility] to see this patient on-rounds in the AM for further recommendations with help appreciated in advance. 2. Obesity; with BMI of 36.2 this admission with JAS complicating #1 - Weight loss will be recommended. Resume nocturnal CPAP. Patient states his home CPAP is not working very well. 3. Essential hypertension - Continue home regimen plus give IV Lopressor prn for systolic blood pressure > 160 mmHg or heart rate > 120 bpm. 4. Hyperlipidemia - Resume statin and check Lipid Profile. 5. History of psoriatic arthritis - Noted with no evidence of acute flare at this time. 6. BRITTANIE - Continue current oral iron supplement. 7. History of Left inguinal hernia repair - Noted. 8. History of appendectomy - Noted. 9. History of eye surgery - Noted. 10. Fibromyalgia - Stable. 11. Depression - Continue home regimen. 12. OA - Give Tylenol prn. 13. DVT prophylaxis - Patient on full-dose Lovenox for #1. Total time: Approximately 70 minutes. Charges/Coding Visit Charges OBSV E&M: 62587 Observ/hosp same date L2
[2024-07-28 21:39] VITALS: BP 141/85; PULSE 101; RESP 18; TEMP 36.8; O2SAT 98
--- NOTE | 2024-07-28 22:30 | ECHOD_ITS ---
Reason For Study: ATRIAL FIBRILLATION Procedure This was a 2D Doppler, Color Flow transthoracic echocardiogram. Exam performed portable in patient room. Left Ventricle Normal LV size. Mild concentric left ventricular hypertrophy. Moderate generalized LV hypokinesis. Estimated EF 40%. Unable to assess diastolic dysfunction due to arrhythmia. Right Ventricle Normal RV size. Mild global right ventricular systolic dysfunction. Atria There is mild biatrial dilatation. Mitral Valve Mild (1+) mitral valve insufficiency. Tricuspid Valve Moderate (2+) tricuspid valve insufficiency. Right ventricular systolic pressure estimated to be 39 mmHg. Aortic Valve Trisinus/trileaflet aortic valve. Pulmonic Valve The pulmonic valve is not well visualized. Great Vessels Mildly dilated aortic root. Pericardium/Pleural No pericardial effusion. MMode/2D Measurements & Calculations LVIDd: 4.3 cm IVSd: 1.4 cm LVOT diam: 2.0 cm LVIDs: 2.8 cm LVPWd: 1.1 cm LVOT area: 3.1 cm2 RVDd: 4.5 cm FS: 35.1 % Ao root diam: 3.8 cm LAV(MOD-bp): 69.2 ml LVAd ap4: 25.8 cm2 LAV(MOD-bp) Indexed: 27.5 ml/m2 LVLd ap4: 7.6 cm LAV(MOD-sp2): 57.8 ml EDV(MOD-sp4): 72.6 ml LAV(MOD-sp4): 70.4 ml EDV(sp4-el): 74.4 ml LVAs ap4: 19.0 cm2 LVLs ap4: 7.0 cm ESV(MOD-sp4): 42.7 ml ESV(sp4-el): 43.9 ml EF(MOD-sp4): 41.2 % EF(sp4-el): 41.0 % LVAd ap2: 27.2 cm2 SV(MOD-sp4): 29.9 ml SV(MOD-sp2): 34.7 ml LVLd ap2: 8.0 cm EDV(MOD-sp2): 76.9 ml EDV(sp2-el): 78.3 ml LVAs ap2: 18.8 cm2 LVLs ap2: 7.2 cm ESV(MOD-sp2): 42.2 ml ESV(sp2-el): 41.3 ml EF(MOD-sp2): 45.1 % SV(sp4-el): 30.5 ml LA dimension(2D): 4.0 cm LA A4 area: 24.3 cm2 RA A4 area: 21.0 cm2 TAPSE: 1.4 cm Time Measurements MV dec time: 0.19 sec Doppler Measurements & Calculations MV E max kenneth: 98.8 cm/sec Lat Peak E' Kenneth: 10.3 cm/sec Med Peak E' Kenneth: 10.3 cm/sec E/E' lat: 9.6 E/E' med: 9.6 Ao V2 max: 101.0 cm/sec LV V1 max: 77.1 cm/sec SV(LVOT): 47.7 ml Ao max P.1 mmHg LV V1 max P.4 mmHg Ao V2 mean: 75.5 cm/sec LV V1 mean P.4 mmHg Ao mean P.5 mmHg LV V1 mean: 55.1 cm/sec Ao V2 VTI: 19.7 cm LV V1 VTI: 15.4 cm AV (velocity ratio): 0.78 KRUNAL(I,D): 2.4 cm2 KRUNAL(V,D): 2.4 cm2 PA V2 max: 55.3 cm/sec TR max kenneth: 244.5 cm/sec PA max PG (full): 0.42 mmHg TR max P.9 mmHg ECHO/Echo Complete Interpretation Summary Mild concentric left ventricular hypertrophy. Moderate generalized LV hypokinesis. Estimated EF 40%. Mild global right ventricular systolic dysfunction. There is mild biatrial dilatation. Mild (1+) mitral valve insufficiency. Moderate (2+) tricuspid valve insufficiency. Right ventricular systolic pressure estimated to be 39 mmHg. Mildly dilated aortic root. Ordering Physician: Zach Miller Performed By: Michelle Bishop RDCS
[2024-07-28 22:54] VITALS: BMI 38.1
[2024-07-28 22:56] VITALS: BP 155/85; PULSE 107; RESP 16; TEMP 36.3; O2SAT 98
[2024-07-28] MEDS: 0.9% Normal Saline (1000mL) 1,000 ML 75 ML IV (23:39)
[2024-07-28] MEDS: Enoxaparin 150 MG/ML Syringe 130 MG SC (23:42)
[2024-07-28] MEDS: BRIMONIDINE 0.2% 5ML BOTTLE 1 DRP OPHTHALMIC (23:43)
[2024-07-28] MEDS: Montelukast 10 MG Tablet PO (23:44)
[2024-07-28] MEDS: Timolol 0.5% 5ML OPTH.BTL 1 DRP OPHTHALMIC (23:44)
[2024-07-28] MEDS: Pravastatin 20 MG Tablet PO (23:45)
[2024-07-29] VITALS (8 sets, daily range): BP systolic 110–124; BP diastolic 62–80; PULSE 77–93; RESP 16–18; TEMP 36.6–37.1; O2SAT 97–99
--- NOTE | 2024-07-29 08:04 | CON.PCM.CA_ITS ---
Assessment & Plan Assessment/Plan (1) Atrial fibrillation with RVR: PLAN: The patient's heart rate currently is 62 in atrial fibrillation on telemetry. He is on no real modulating drugs at this time. His IV diltiazem was discontinued. His heart rate was 144 when he presented to the emergency department. He is on his CPAP with nasal prongs at this time. He has no idea when he went into atrial fibrillation it was found incidentally in his doctor's office yesterday and he was sent to the emergency department. The patient denies any syncope or near syncope he has no idea when this started. His [id number] score is 2 which equates to a yearly risk of 2.2% for stroke. It is recommended he be on oral anticoagulation. I do recommend that we switch him from Lovenox to Eliquis 5 mg twice daily given his creatinine clearance in the 50s and his age of 68. 2D echocardiogram is pending. Once we have the results of his atrial sizes and structural heart we will make long-term management decisions. At this point in time given lack of symptoms I would favor rate management and oral anticoagulation. I would strongly recommend we find a way to treat him with Eliquis due to my concern about compliance with INR draws and the complications associated with Coumadin and his intermittent use of steroids for his gout and psoriasis. I would recommend that we add low-dose metoprolol to tartrate 25 mg twice daily to his medical regiment to control his rate when he is up and ambulatory. The patient should be encouraged to be ambulatory in the room and in the halls today so that we can document control of his rate. Apparently he is able to get his meds paid for through some type of support and social research assistant is evaluating his situation. (2) JAS (obstructive sleep apnea): PLAN: He is on CPAP with nasal prongs at home. He feels that this may need to be reevaluated but he is reluctant to do so making the comment that he is tired of living and not sure that he wants to pursue any aggressive treatments. (3) Essential hypertension: PLAN: Blood pressure is adequately controlled on his current medical therapy. PLAN: Plan 1. Echocardiogram to be done today. Further recommendations to follow. 2. Metoprolol tartrate 25 mg twice daily. 3. DC Lovenox and institute Eliquis 5 mg twice daily. 4. special services supervisor to investigate his social situation and home environment. 5. Further behavioral health evaluation is felt to be indicated by the primary service. HPI Consult Data Date of Consult: 07/29/24 HPI Narrative Reason for Consultation: New onset atrial fibrillation. HPI Narrative: SALUD GALLEGOS, is a 68 M who presents with a history of newly diagnosed atrial fibrillation with rapid ventricular spots in the 140 bpm range. The patient presented to his physician's office yesterday was found to be in atrial fibrillation. He was not aware by his report that he was in atrial fibs he has no idea when it started. The patient has a history of a leaky heart valve he does not know which valve and it was diagnosed when he was very young. He also has a history of depression since age 8 and his affairs financially are managed by his sister. The patient lives alone in a less than optimal situation with the cats and his place is infested with bedbugs. The patient has a history of hypertension and obstructive sleep apnea treated with CPAP. He reports that his CPAP machine is old and probably not functioning appropriately. He also has a history of fibromyalgia and psoriatic arthritis. The patient denies any history of anginal symptoms denies any history of coronary artery disease. He denies any history of illicit drug use at this time. He has never been told that he has atrial fibrillation in the past and never been told that he had any structural heart disease other than a minor leakage of 1 heart valve. He denies any history of pulmonary emboli. The patient's father was a [employer] upholstery auto trimmer who lived to be in his 90s and had atrial fibrillation with the last 47 years of his life. It is difficult to keep him on point he tends to be very verbose with his answers to questions. The patient also made an offhand comment that he did not know how aggressive he wanted to be because he was tired of living the way he has been living. I discussed it with the nursing staff and they told me that social research assistant is already been alerted of his situation and will be evaluating the patient. [facility] Medical History CPAP (continuous positive airway pressure) dependence Asthma Atrial fibrillation Irregular heart beat Hypertension Migraines Psoriatic arthritis Depression Sleep apnea Home Medications ?Medication ?Instructions ?Recorded ?Last Taken ?Type Slow Fe 47.5 mg PO DAILY 04/01/15 Unknown History amlodipine 5 mg tablet 5 mg PO DAILY 04/01/15 Unknown History cholecalciferol (vitamin D3) 125 5,000 unit PO DAILY 04/01/15 Unknown History mcg (5,000 unit) capsule loratadine 10 mg tablet (Allergy 10 mg PO DAILY 04/01/15 Unknown History Relief (loratadine)) potassium chloride 10 mEq 20 meq PO DAILY 04/01/15 Unknown History tablet,extended release (Klor-Con) pravastatin 20 mg tablet 20 mg PO QHS 04/01/15 Unknown History tramadol 50 mg tablet 50 mg PO Q4H PRN PRN Pain 04/01/15 Unknown History brimonidine 0.2 % eye drops 1 drp ophthalmic (eye) BID 07/28/24 Unknown History cetirizine 10 mg tablet 10 mg PO DAILY 07/28/24 Unknown History montelukast 10 mg tablet 10 mg PO QHS 07/28/24 Unknown History ondansetron 4 mg disintegrating 4 mg PO Q8H PRN PRN n/v 07/28/24 Unknown History tablet prednisone 10 mg tablet 10 mg PO DAILY PRN gout 07/28/24 Unknown History timolol maleate 0.5 % eye drops 1 drp ophthalmic (eye) BID 07/28/24 Unknown History apremilast 20 mg tablet (Otezla) 20 mg PO BID 07/29/24 Unknown History Allergy/AdvReac Type Severity Reaction Status Date / Time codeine Allergy NEEDS Verified 03/16/24 07:05 FOLLOW-UP pseudoephedrine (From Allergy PT UNSURE Verified 03/16/24 07:05 Sudafed) OF REACTION sumatriptan (From Imitrex) Allergy Other Verified 03/16/24 07:05 sumatriptan succinate (From Allergy Other Verified 03/16/24 07:05 Imitrex) Surgical History History of appendectomy S/P left inguinal herniorrhaphy Hx of eye surgery Social History Smoking Status: Never smoker ROS Constitutional Constitutional: Reports as per HPI Eyes Eyes: Reports systems reviewed and no addt'l complaints, except as documented ENT HEENT: Reports systems reviewed and no addt'l complaints, except as documented Cardiovascular Cardiovascular: Reports as per HPI Respiratory/Chest Respiratory/Chest: Reports as per HPI Gastrointestinal Gastrointestinal: Reports systems reviewed and no addt'l complaints, except as documented Genitourinary Genitourinary: Reports systems reviewed and no addt'l complaints, except as documented Musculoskeletal Musculoskeletal: Reports systems reviewed and no addt'l complaints, except as documented Integumentary Integumentary: Reports systems reviewed and no addt'l complaints, except as documented Neurologic Neurologic: Reports systems reviewed and no addt'l complaints, except as documented Psychiatric Psychiatric: Reports as per HPI Endocrine Endocrinology: Reports systems reviewed and no addt'l complaints, except as documented Hematologic/Lymphatic Hematologic/Lymphatic: Reports systems reviewed and no addt'l complaints, except as documented Allergic/Immunologic Allergic/Immunologic: Reports systems reviewed and no addt'l complaints, except as documented Physical Exam Const alert and oriented x3 Constitutional Narrative: Patient has nasal prong CPAP in place. HEENT normocephalic Eyes EOMs intact bilaterally Neck no JVD Carotids: Negative for bruit Chest inspection of chest normal Resp normal respiratory effort Auscultation: crackles right base and rhonchi left lower Cardio Rate: regular rate Rhythm: abnormal rhythm irregularly irregular Heart Sounds: S1 normal, S2 normal and other Other Details: Distant heart tones ; Negative for click, gallop or murmur GI soft to palpation Extremity no pedal edema Skin General Skin Exam: Negative for ecchymosis Neuro Neuro Narrative: Patient is alert and oriented x 3 but seems to have somewhat pressured speech and very verbose answers to the any simple question. Risk Stratification Risk Stratification Applicable: Yes Age >/= 65: Yes >/= 3 CAD Risk Factors (HTN, HLD, DM, family hx of CAD, or current smoker): No Aspirin Use in the Past 7 Days: No Severe Angina (>/= episodes in 24 hours): No EKG ST Changes >/= 0.5mm: No Positive Cardiac Marker: No ANNELISE Risk Stratification Score: 1 ANNELISE % Risk: 5% Risk Charges/Coding Visit Charges Inpatient E&M: 32489 Init Hosp L3 Objective Data Vital Signs: Vital Signs Temp Pulse Resp BP Pulse Ox O2 Del Method FiO2 98.1 F 88 16 117/65 97 CPAP 21 07/29/24 05:00 07/29/24 05:00 07/29/24 05:00 07/29/24 05:00 07/29/24 05:00 07/29/24 05:00 07/29/24 01:31 Oxygen Delivery Method CPAP Weight: 281 lb 6.4 oz Body Mass Index (BMI) 38.1 Intake & Output: Intake and Output for Last 24 Hours 07/27/24 07/28/24 07/29/24 23:59 23:59 23:59 Intake Total 1000 / 1000 Balance 1000 / 1000 Lab / Micro Data Attestation: I reviewed the patient's lab results. 07/28/24 17:59 07/28/24 17:59 Labs: Laboratory Results - last 24 hr 07/28/24 17:59: WBC 7.9, RBC 4.24 L, Hgb 13.0, Hct 39.5 L, MCV 93.2, MCH 30.7, MCHC 32.9, RDW Std Deviation 42.9, RDW Coeff of Perri 12.6, Plt Count 276, MPV 9.9, Immature Gran % (Auto) 0.400, Neut % (Auto) 59.9, Lymph % (Auto) 24.1, [place] % (Auto) 10.6 H, Eos % (Auto) 4.2, Baso % (Auto) 0.8, Absolute Neuts (auto) 4.7, Absolute Lymphs (auto) 1.91, Nucleated RBC % 0, PT 13.9, INR 1.1, APTT 31.9, Sodium 142, Potassium 3.8, Chloride 109 H, Carbon Dioxide 25.0, Anion Gap 8, BUN 12, Creatinine 1.61 H, Estim Creat Clear Calc 63.30, Est GFR (MDRD) Af Amer 55 L , Est GFR (MDRD) Non-Af 46 L, BUN/Creatinine Ratio 7.5 L, Glucose 103, Calcium 9.2, Total Bilirubin 0.60, AST 15, ALT 17, Alkaline Phosphatase 58, Troponin I High Sens 8, Total Protein 7.8, Albumin 3.9, Globulin 3.9, Albumin/Globulin Ratio 1.0 07/28/24 18:51: Urine Color Yellow, Urine Clarity Clear, Urine pH 6.5, Ur Specific [place] 1.020, Urine Protein 15 H, Urine Glucose (UA) Normal, Urine Ketones Negative, Urine Occult Blood Negative, Urine Nitrite Negative, Urine Bilirubin Negative, Urine Urobilinogen Normal, Ur Leukocyte Esterase 25 H, Urine RBC 0 SEEN, Urine WBC 0 SEEN, Ur Squamous Epith Cells 0 SEEN, Urine Bacteria 0 SEEN, Urine Mucus 0 SEEN 07/28/24 20:16: Troponin I High Sens 8, TSH 2.450 Rhythm Strip Rhythm Strip: A-fib Rate: 62 Cardiology Labs/Tests 07/28/24 17:59: WBC 7.9, RBC 4.24 L, Hgb 13.0, Hct 39.5 L, MCV 93.2, MCH 30.7, MCHC 32.9, Plt Count 276, MPV 9.9, Immature Gran % (Auto) 0.400, Neut % (Auto) 59.9, Lymph % (Auto) 24.1, [place] % (Auto) 10.6 H, Eos % (Auto) 4.2, Baso % (Auto) 0.8, Absolute Neuts (auto) 4.7, Nucleated RBC % 0, PT 13.9, INR 1.1, APTT 31.9, Sodium 142, Potassium 3.8, Chloride 109 H, Carbon Dioxide 25.0, Anion Gap 8, BUN 12, Creatinine 1.61 H, Est GFR (MDRD) Af Amer 55 L, Est GFR (MDRD) Non-Af 46 L, BUN/Creatinine Ratio 7.5 L, Glucose 103, Calcium 9.2, Total Bilirubin 0.60 07/28/24 18:51: Urine Color Yellow, Urine Clarity Clear, Urine pH 6.5, Ur Specific [place] 1.020, Urine Protein 15 H, Urine Glucose (UA) Normal, Urine Ketones Negative, Urine Occult Blood Negative, Urine Nitrite Negative, Urine Bilirubin Negative, Urine Urobilinogen Normal, Ur Leukocyte Esterase 25 H, Urine RBC 0 SEEN, Urine WBC 0 SEEN Rhythm: EKG: ECHO: Stress Test: Cardiac Cath: PCI: CT Surgery: Holter monitor: EPS: PPM: CXR: Chest CT Scan: Radiography Diagnostic Testing: Radiology Impression Chest X-Ray 07/28/24 17:50 IMPRESSION: No radiographic evidence of acute cardiopulmonary disease. Electronically Signed: Glen Cohen MD at 18:30 EDT , EKG Initial EKG: Attestation: I personally reviewed and interpreted this EKG as follows: (Atrial fibrillation with a heart rate of 144 bpm with a right bundle branch block.)
[2024-07-29] MEDS: amLODIPine 5 MG Tablet PO (09:46)
[2024-07-29] MEDS: BRIMONIDINE 0.2% 5ML BOTTLE 1 DRP OPHTHALMIC ×2 (09:46→21:11)
[2024-07-29] MEDS: Ferrous Sulfate 325 MG Tablet PO (09:46)
[2024-07-29] MEDS: predniSONE 10 MG Tablet PO (09:47)
[2024-07-29] MEDS: Acetaminophen 325 MG Tablet 650 MG PO ×2 (09:47→21:15)
[2024-07-29] MEDS: Potassium Chloride Oral Tablet 20 MEQ PO (09:47)
[2024-07-29] MEDS: Timolol 0.5% 5ML OPTH.BTL 1 DRP OPHTHALMIC ×2 (09:47→21:10)
[2024-07-29] MEDS: Loratadine 10 MG Tablet PO (09:47)
[2024-07-29] MEDS: Cholecalciferol (Vit D3) 125 MCG CAPSULE (5,000 UNITS) PO (09:47)
[2024-07-29] MEDS: traMADol 50 MG Tablet PO ×2 (09:48→21:14)
[2024-07-29] MEDS: APIXABAN 5 MG TABLET PO (10:17)
[2024-07-29] MEDS: 0.9% Normal Saline (1000mL) 1,000 ML 75 ML IV (12:59)
--- NOTE | 2024-07-29 15:37 | CASEMGMT ---
Met with patient to complete ANDRES form. ANDRES form explained to patient who voiced understanding and signed form. Original form placed in pt?s chart and copy provided to patient. Samreen Dawson, Discharge Planning Asst
--- NOTE | 2024-07-29 16:27 | PCM.PN.HOSP ---
Subjective Subjective Doing well, denies any chest pain Objective Data Objective Data Vital Signs: Vital Signs Temp Pulse Resp BP Pulse Ox O2 Del Method FiO2 98.7 F 93 18 121/80 H 97 Room Air 21 07/29/24 15:26 07/29/24 15:26 07/29/24 15:26 07/29/24 15:26 07/29/24 15:26 07/29/24 15:26 07/29/24 01:31 Oxygen Delivery Method Room Air Weight: 281 lb 6.4 oz Body Mass Index (BMI) 38.1 Intake & Output: Intake and Output for Last 24 Hours 07/28/24 07/29/24 07/30/24 03:59 03:59 03:59 Intake Total 1000 / 1000 1120 / 1120 Output Total 250 / 250 Balance 1000 / 1000 870 / 870 Lab / Micro Data 07/28/24 17:59 07/28/24 17:59 Labs: Laboratory Results - last 24 hr 07/28/24 17:59: WBC 7.9, RBC 4.24 L, Hgb 13.0, Hct 39.5 L, MCV 93.2, MCH 30.7, MCHC 32.9, RDW Std Deviation 42.9, RDW Coeff of Perri 12.6, Plt Count 276, MPV 9.9, Immature Gran % (Auto) 0.400, Neut % (Auto) 59.9, Lymph % (Auto) 24.1, [place] % (Auto) 10.6 H, Eos % (Auto) 4.2, Baso % (Auto) 0.8, Absolute Neuts (auto) 4.7, Absolute Lymphs (auto) 1.91, Nucleated RBC % 0, PT 13.9, INR 1.1, APTT 31.9, Sodium 142, Potassium 3.8, Chloride 109 H, Carbon Dioxide 25.0, Anion Gap 8, BUN 12, Creatinine 1.61 H, Estim Creat Clear Calc 63.30, Est GFR (MDRD) Af Amer 55 L, Est GFR (MDRD) Non-Af 46 L, BUN/Creatinine Ratio 7.5 L, Glucose 103, Calcium 9.2, Total Bilirubin 0.60, AST 15, ALT 17, Alkaline Phosphatase 58, Troponin I High Sens 8, Total Protein 7.8, Albumin 3.9, Globulin 3.9, Albumin/Globulin Ratio 1.0 08/27/24 18:51: Urine Color Yellow, Urine Clarity Clear, Urine pH 6.5, Ur Specific [place] 1.020, Urine Protein 15 H, Urine Glucose (UA) Normal, Urine Ketones Negative, Urine Occult Blood Negative, Urine Nitrite Negative, Urine Bilirubin Negative, Urine Urobilinogen Normal, Ur Leukocyte Esterase 25 H, Urine RBC 0 SEEN, Urine WBC 0 SEEN, Ur Squamous Epith Cells 0 SEEN, Urine Bacteria 0 SEEN, Urine Mucus 0 SEEN 07/28/24 20:16: Troponin I High Sens 8, TSH 2.450 Radiography Diagnostic Testing: Radiology Impression Chest X-Ray 07/28/24 17:50 IMPRESSION: No radiographic evidence of acute cardiopulmonary disease. Electronically Signed: Glen Cohen MD at 18:30 EDT , Echocardiogram 07/28/24 22:30 Interpretation Summary Mild concentric left ventricular hypertrophy. Moderate generalized LV hypokinesis. Estimated EF 40%. Mild global right ventricular systolic dysfunction. There is mild biatrial dilatation. Mild (1+) mitral valve insufficiency. Moderate (2+) tricuspid valve insufficiency. Right ventricular systolic pressure estimated to be 39 mmHg. Mildly dilated aortic root. Ordering Physician: Zach Miller Performed By: Michelle Bishop NICKI Rhythm Strip Rhythm Strip: A-fib Rate: 62 Physical Exam Narrative General: Alert, Oriented x3, Cooperative, No apparent distress HEENT: Atraumatic, PERRLA, EOMI, Normocephalic Oral: Moist Mucosa Neck: Supple, No JVD Lungs: Clear to auscultation, Normal air movement, No rhonchi, No wheeze, No rales Cardiovascular: Regular rate, irregular rhythm, Normal S1, Normal S2, No murmurs Abdomen: Soft, Non Tender, Non-Distended, No Hepato-splenomegaly Extremities: No edema, Capillary Refill Less than 3 Seconds Skin: No rashes, No breakdown Musculoskeletal: No Tenderness to Palpation of Joints or Extremities Neurological: No focal neurological deficits, Motor Exam 5/5 strength throughout, Sensory exam intact to light touch and pain Psych/Mental Status: Flat Assessment & Plan Assessment/Plan (1) Atrial fibrillation with RVR: (2) Obesity (BMI 30-39.9): (3) JAS (obstructive sleep apnea): (4) Essential hypertension: (5) Psoriatic arthritis: (6) Depression: QUALIFIERS: Depression Type: unspecified Qualified Code(s): F32.A - Depression, unspecified (7) Fibromyalgia: PLAN: Plan 1. New onset A-fib with RVR/essential HTN/HLD ? Was placed on Cardizem drip, this was discontinued today by cardiology was transition to p.o. metoprolol ? Will monitor his reactions to metoprolol and if he is able to ambulate without any significant rise in his heart rate today and tomorrow I will look at discharge ? Transition from Coumadin to Eliquis will continue with his home blood pressure medications ? Will monitor make adjustments as necessary 2. Anxiety/depression ? Stabilized ? Continue with his home medications 3. Iron deficiency anemia ? Stable ? Continue with his iron supplement DVT: Eliquis Charges/Coding Visit Charges Inpatient E&M: 16345 Subs Hosp L2
[2024-07-29] MEDS: Pravastatin 20 MG Tablet PO (21:10)
[2024-07-29] MEDS: Montelukast 10 MG Tablet PO (21:10)
[2024-07-29] MEDS: Metoprolol Tartrate 25 MG Tablet PO (21:16)
--- NOTE | 2024-07-29 22:18 | CT_ITS ---
INDICATION: HEMATURIA EXAMINATION: CT ABDOMEN AND PELVIS WITH CONTRAST - CT Abdomen And Pelvis W/ Contrast Injection TECHNIQUE: Helically acquired images were obtained of the abdomen and pelvis following IV contrast. A radiation dose optimization technique was used for this scan. IV Contrast dosage and agent: 100 mL Isovue-370 Oral contrast: None. COMPARISON: Abdominal ultrasound July 23, 2006. FINDINGS: LOWER CHEST: Lung bases are clear. No cardiomegaly or pericardial effusion. LIVER: Generally homogeneous. Small right hepatic hypodensity compatible cysts, too small to further characterize. . GALLBLADDER AND BILIARY TREE: No calcified gallstones. No gallbladder distension or wall edema. No intra- or extrahepatic biliary ductal dilation. PANCREAS: No focal cystic or solid mass. SPLEEN: Normal size without focal cystic or solid mass. ADRENAL GLANDS: No nodules. KIDNEYS AND URETERS: Normal renal size and position. No hydronephrosis. Mild senescent perinephric stranding. Subcentimeter right renal hypodensity too small to characterize but compatible with cysts, no specific imaging follow-up required. No nephrolithiasis. Unremarkable ureters. PERITONEUM: No ascites or free air. No other fluid collection. BOWEL: No acute gastric finding. No small bowel distention or focal wall thickening. Prior appendectomy. Large colonic stool burden. Distal colonic diverticulosis without evidence of diverticulitis. . LYMPH NODES: No enlarged mesenteric or retroperitoneal lymph nodes. VESSELS: Aorta is non-dilated. URINARY BLADDER: Unremarkable. ABDOMINAL WALL: Left inguinal small fat-containing hernia versus fatty proliferation, without associated inflammation. BONES: Mild bilateral hip osteoarthritis.. CT/Abdomen/Pelvis W IV Cont ONLY IMPRESSION: No nephrolithiasis or specific finding to explain hematuria. Subcentimeter right renal hypodensity which is too small to characterize by any modality but compatible with cyst, no specific imaging follow-up required. Large colonic stool burden. Distal colonic diverticulosis without evidence of diverticulitis. Electronically Signed: Leonel Ayala MD at 0:18 EDT ,
[2024-07-30] VITALS (8 sets, daily range): BP systolic 121–142; BP diastolic 87–95; PULSE 70–86; RESP 14–18; TEMP 36.2–36.9; O2SAT 95–99
[2024-07-30] MEDS: 0.9% Normal Saline (1000mL) 1,000 ML 75 ML IV (01:03)
--- NOTE | 2024-07-30 08:27 | PCM.PN.CARD ---
Subjective Subjective Patient denies any complaints this morning. He is resting company with BiPAP in place. I did go over with him the finding of his echocardiogram as noted below in the assessment and plan. Objective Data Vital Signs: Vital Signs Temp Pulse Resp BP Pulse Ox O2 Del Method FiO2 97.2 F L 79 15 121/95 H 95 CPAP 21 07/30/24 03:48 07/30/24 03:49 07/30/24 03:49 07/30/24 03:48 07/30/24 03:49 07/30/24 03:48 07/30/24 03:49 Oxygen Delivery Method CPAP Weight: 281 lb 6.4 oz Body Mass Index (BMI) 38.1 Intake & Output: Intake and Output for Last 24 Hours 07/28/24 07/29/24 07/30/24 23:59 23:59 23:59 Intake Total 1000 / 1000 1620 / 1620 905 / 905 Output Total 650 / 650 150 / 150 Balance 1000 / 1000 970 / 970 755 / 755 Lab / Micro Data Attestation: I reviewed the patient's lab results. 07/28/24 17:59 07/28/24 17:59 Rhythm Strip Rhythm Strip: A-fib Rate: 78 Cardiology Labs/Tests Rhythm: EKG: ECHO: Stress Test: Cardiac Cath: PCI: CT Surgery: Holter monitor: EPS: PPM: CXR: Chest CT Scan: Radiography Diagnostic Testing: Radiology Impression Echocardiogram 07/28/24 22:30 Interpretation Summary Mild concentric left ventricular hypertrophy. Moderate generalized LV hypokinesis. Estimated EF 40%. Mild global right ventricular systolic dysfunction. There is mild biatrial dilatation. Mild (1+) mitral valve insufficiency. Moderate (2+) tricuspid valve insufficiency. Right ventricular systolic pressure estimated to be 39 mmHg. Mildly dilated aortic root. Ordering Physician: Zach Miller Performed By: Michelle Bishop RDCS Abdomen/Pelvis CT 07/29/24 22:18 IMPRESSION: No nephrolithiasis or specific finding to explain hematuria. Subcentimeter right renal hypodensity which is too small to characterize by any modality but compatible with cyst, no specific imaging follow-up required. Large colonic stool burden. Distal colonic diverticulosis without evidence of diverticulitis. Electronically Signed: Leonel Ayala MD at 0:18 EDT , Physical Exam Const alert and oriented x3 HEENT normocephalic Eyes EOMs intact bilaterally Neck no JVD Chest inspection of chest normal Resp normal respiratory effort and clear to auscultation bilaterally Cardio Palpation: other Other Details: Distant heart tones Rate: regular rate Rhythm: abnormal rhythm irregularly irregular Heart Sounds: S1 normal and S2 normal; Negative for click, gallop or murmur Extremity no pedal edema Skin Skin Narrative: Multiple small bug bites noted. Neuro Neuro Narrative: Alert and oriented x 3 and very talkative. Assessment & Plan Assessment/Plan (1) Atrial fibrillation with RVR: PLAN: The patient's rapid response has been easily controlled with low-dose metoprolol. The patient is totally asymptomatic and not aware that he is in atrial fibrillation. The patient's [id number] or is equal to 2. He is tolerating the Eliquis to date. Patient's renal function has slightly deteriorated his creatinine is 1.65. This needs to be monitored in the ambulatory setting. (2) Left ventricular systolic dysfunction (LVSD): PLAN: Patient's LV systolic function was estimated 40% and a globally mildly depressed fashion. 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 Would recommend discontinuing amlodipine and switching him to an ARB therapy. Losartan 50 mg will be added. He should have a basic metabolic panel done early next week to reassess his renal status. The patient should follow-up in the [facility] office in the next 10 to 14 days. From a cardiovascular standpoint the patient can be discharged to home. PLAN: Plan 1. Discharge to home from a cardiovascular standpoint. 2. Will DC amlodipine and replace with losartan 50 mg every morning due to LV dysfunction. 3. Basic metabolic panel early next week. This should be followed up in the [facility] office. 4. emergency services professional to evaluate the patient's home environment for assistance with bedbug extermination. 5. The patient should be reevaluated in the [facility] office in the next 10 to 14 days. 6. Given the patient's mild biatrial enlargement and attempted direct-current cardioversion may be indicated after 3 to 4 weeks of oral anticoagulation uninterrupted. This will be discussed at the next office visit. Charges/Coding Visit Charges Inpatient E&M: 16704 [facility] Hosp L3
[2024-07-30] MEDS: BRIMONIDINE 0.2% 5ML BOTTLE 1 DRP OPHTHALMIC ×2 (09:05→21:41)
[2024-07-30] MEDS: Potassium Chloride Oral Tablet 20 MEQ PO (09:05)
[2024-07-30] MEDS: Ferrous Sulfate 325 MG Tablet PO (09:05)
[2024-07-30] MEDS: Loratadine 10 MG Tablet PO (09:05)
[2024-07-30] MEDS: Timolol 0.5% 5ML OPTH.BTL 1 DRP OPHTHALMIC ×2 (09:06→21:33)
[2024-07-30] MEDS: Cholecalciferol (Vit D3) 125 MCG CAPSULE (5,000 UNITS) PO (09:06)
[2024-07-30] MEDS: Metoprolol Tartrate 25 MG Tablet PO (09:08)
[2024-07-30 10:12] LABS: Anion Gap 5 (5-15); BUN 12 mg/dL (7-18); Calcium,Total 8.9 mg/dL (8.5-10.1); Chloride 109 mmol/L (98-107); Creatinine, Serum 1.34 mg/dL (0.70-1.30); EST Glomerular Filtration Rate 56 mL/min (>60); Est Glom Filt Rate - Afr Amer 68 mL/min (>60); Estimated Creatinine Clearance 73.86 ml/min; Glucose 98 mg/dL (74-106); Potassium 3.4 mmol/L (3.5-5.1); Sodium Level 139 mmol/L (136-145)
[2024-07-30] MEDS: APIXABAN 5 MG TABLET PO ×2 (10:23→21:35)
--- NOTE | 2024-07-30 15:48 | PCM.PN.HOSP ---
Subjective Subjective No issues overnight, heart rate did climb to the 140s with ambulation Objective Data Objective Data Vital Signs: Vital Signs Temp Pulse Resp BP Pulse Ox O2 Del Method FiO2 98.4 F 86 18 132/87 H 99 CPAP 21 07/30/24 15:10 07/30/24 15:10 07/30/24 15:10 07/30/24 15:10 07/30/24 15:10 07/30/24 15:10 07/30/24 03:49 Oxygen Delivery Method CPAP Weight: 281 lb 6.4 oz Body Mass Index (BMI) 38.1 Intake & Output: Intake and Output for Last 24 Hours 07/29/24 07/30/24 07/31/24 03:59 03:59 03:59 Intake Total 1000 / 1000 2525 / 2525 1271.25 / 1271.25 Output Total 650 / 650 150 / 150 Balance 1000 / 1000 1875 / 1875 1121.25 / 1121.25 Lab / Micro Data 07/28/24 17:59 07/30/24 09:22 Labs: Laboratory Results - last 24 hr 07/30/24 09:22: Sodium 139, Potassium 3.4 L, Chloride 109 H, Carbon Dioxide 25.0, Anion Gap 5, BUN 12, Creatinine 1.34 H, Estim Creat Clear Calc 73.86, Est GFR (MDRD) Af Amer 68, Est GFR (MDRD) Non-Af 56 L, BUN/Creatinine Ratio 9.0 L, Glucose 98, Calcium 8.9 Radiography Diagnostic Testing: Radiology Impression Abdomen/Pelvis CT 07/29/24 22:18 IMPRESSION: No nephrolithiasis or specific finding to explain hematuria. Subcentimeter right renal hypodensity which is too small to characterize by any modality but compatible with cyst, no specific imaging follow-up required. Large colonic stool burden. Distal colonic diverticulosis without evidence of diverticulitis. Electronically Signed: Leonel Ayala MD at 0:18 EDT , Rhythm Strip Rhythm Strip: A-fib Rate: 78 Physical Exam Narrative General: Alert, Oriented x3, Cooperative, No apparent distress HEENT: Atraumatic, PERRLA, EOMI, Normocephalic Oral: Moist Mucosa Neck: Supple, No JVD Lungs: Clear to auscultation, Normal air movement, No rhonchi, No wheeze, No rales Cardiovascular: Regular rate, irregular rhythm, Normal S1, Normal S2, No murmurs Abdomen: Soft, Non Tender, Non-Distended, No Hepato-splenomegaly Extremities: No edema, Capillary Refill Less than 3 Seconds Skin: No rashes, No breakdown Musculoskeletal: No Tenderness to Palpation of Joints or Extremities Neurological: No focal neurological deficits, Motor Exam 5/5 strength throughout, Sensory exam intact to light touch and pain Psych/Mental Status: Flat Assessment & Plan Assessment/Plan (1) Atrial fibrillation with RVR: (2) Obesity (BMI 30-39.9): (3) JAS (obstructive sleep apnea): (4) Essential hypertension: (5) Psoriatic arthritis: (6) Depression: QUALIFIERS: Depression Type: unspecified Qualified Code(s): F32.A - Depression, unspecified (7) Fibromyalgia: PLAN: Plan 1. New onset A-fib with RVR/essential HTN/HLD ? Was placed on Cardizem drip, this was discontinued today by cardiology was transition to p.o. metoprolol ?Started on 25 metoprolol p.o. twice daily however he had heart rates in the 140s with activity therefore will increase to 50 twice daily ? Cardiology recommends also the addition of losartan 50 mg daily and the discontinuation of Norvasc ? Transition from Coumadin to Eliquis will continue with his home blood pressure medications ? Will monitor make adjustments as necessary 2. Anxiety/depression ? Stabilized ? Continue with his home medications 3. Iron deficiency anemia ? Stable ? Continue with his iron supplement DVT: Eliquis Charges/Coding Visit Charges Inpatient E&M: 33286 Subs Hosp L2
--- NOTE | 2024-07-30 16:32 | CASEMGMT ---
Addendum entered by Ritu Gonzales 07/30/24 16:55: SW also provided printed resources for hoarding clean up companies and counselors specializing in hoarding. KIERAN Hogue Original Note: Social Work- SW met with pt to complete SDOH assessment. Pt presents with flight of ideas and stoic demeanor. Pt reports that he has 5 cats; 4 indoors and 1 outdoors. Pt reports there is no a/c, but the basement is cool. Pt reports that they had food and water for 2 days. Pt declines to have SW call [facility]Attend[facility] to have cats removed, as pt states he is being d/c today or tomorrow and feels cats will be safe until then, as he just admitted to [facility] on Saturday. Pt confirmed the d/c plans with physician for tomorrow. Pt reports he has a sister, but that she would not go to the home for the cats, as they have an estranged relationship. Pt has no other friends or family. Pt reports that his father 2.5 years ago, his mother 5 years ago, and his 8-9 years ago. Pt owns his home. Pt sister is in charge of finances and she will not pay for bedbug removal. Pt reports he is an extreme hoarder and it's a way of protecting himself. Pt states that he collected beds that others didn't want and allows homeless to sleep there in the winter. Pt reports the people are unknown to him and always take advantage of me and it ends up bad. Pt states that he tries to help people, but the help is never reciprocated. Pt reports he collects dolls to donate to orphanages as well. Pt states he believes in recycling and has packaging and other recyclables stacked in his home. Pt is cognizant of the difficulty of removing bedbugs from a hoarding situation. Pt reports that he researches bedbugs and runs trials on various means by which to kill them, as well as traps to make. Pt believes there are millions of bedbugs in the home, reporting that they pour out of furniture, climb the duckworth, and cover him at night. 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 Pt reports that he graduated from [employer] groups d/t helping so many other people graduate. Pt declines need for mental health services currently, reporting he has great coping skills. SW provided information for [facility] including [facility] on aging and [facility] dept. SW called [facility] to file a report. Pt reports no other needs at this time. KIERAN Hogue
[2024-07-30] MEDS: Pravastatin 20 MG Tablet PO (21:34)
[2024-07-30] MEDS: Montelukast 10 MG Tablet PO (21:35)
[2024-07-30] MEDS: Metoprolol Tartrate 50 MG Tablet PO (21:40)
[2024-07-31] MEDS: predniSONE 10 MG Tablet PO (03:26)
[2024-07-31] MEDS: Acetaminophen 325 MG Tablet 650 MG PO (03:26)
[2024-07-31] MEDS: traMADol 50 MG Tablet PO (03:27)
[2024-07-31 03:30] VITALS: BP 135/86; PULSE 76; RESP 18; TEMP 36.7; O2SAT 100
[2024-07-31 06:44] LABS: Absolute Lymphocyte Count 1.08 X10^3/uL (0.83-4.51); Absolute Neutrophil Count 7.6 X10^3/uL (2.0-7.7); Basophil# 0.06 X10^3/uL; Basophil% 0.6 % (0-1); Eosinophil# 0.23 X10^3/uL; Eosinophils% 2.4 % (0-5); Hematocrit 38.8 % (40-54); Hemoglobin 12.7 g/dL (13.0-16.5); Lymphocyte # 1.08 X10^3/ul (0.83-4.51); Lymphocyte % 11.3 % (19-41); Mean Corp Hgb Conc 32.7 g/dL (32-36); Mean Corpuscular Volume 94.6 fL (80-94); Mean Platelet Vol. 9.9 fl (6.2-12.0); Monocyte# 0.55 X10^3/uL; Monocyte% 5.8 % (0-10); NRBC Flagged by Analyzer 0 % (0-5); Neutrophil # 7.57 X10^3/uL (2.7-7.7); Neutrophil % 79.4 % (47-70); Platelet Count 232 K/mm3 (150-450); RBC Distribution Width CV 12.4 % (11.6-14.6); RBC Distribution Width SD 42.8 fl (35.1-43.9); White Blood Count 9.5 K/mm3 (4.4-11.0)
[2024-07-31 07:06] LABS: Anion Gap 4 (5-15); BUN 13 mg/dL (7-18); BUN/Creat Ratio 10.2 RATIO (10-20); Calcium,Total 8.7 mg/dL (8.5-10.1); Chloride 109 mmol/L (98-107); Creatinine, Serum 1.27 mg/dL (0.70-1.30); EST Glomerular Filtration Rate 60 mL/min (>60); Est Glom Filt Rate - Afr Amer 73 mL/min (>60); Estimated Creatinine Clearance 77.93 ml/min; Glucose 106 mg/dL (74-106); Potassium 3.7 mmol/L (3.5-5.1); Sodium Level 139 mmol/L (136-145)
[2024-07-31] MEDS: Ferrous Sulfate 325 MG Tablet PO (09:04)
[2024-07-31] MEDS: Loratadine 10 MG Tablet PO (09:05)
[2024-07-31] MEDS: BRIMONIDINE 0.2% 5ML BOTTLE 1 DRP OPHTHALMIC (09:05)
[2024-07-31] MEDS: Losartan Potassium 50 MG Tablet PO (09:05)
[2024-07-31] MEDS: APIXABAN 5 MG TABLET PO (09:06)
[2024-07-31] MEDS: Potassium Chloride Oral Tablet 20 MEQ PO (09:06)
[2024-07-31 09:07] VITALS: PULSE 77
[2024-07-31] MEDS: Metoprolol Tartrate 50 MG Tablet PO (09:07)
[2024-07-31] MEDS: Timolol 0.5% 5ML OPTH.BTL 1 DRP OPHTHALMIC (09:08)
[2024-07-31] MEDS: Cholecalciferol (Vit D3) 125 MCG CAPSULE (5,000 UNITS) PO (09:09)
[2024-07-31 09:30] VITALS: BP 126/88; PULSE 89; RESP 16; TEMP 36.8; O2SAT 97
--- NOTE | 2024-07-31 09:36 | CASEMGMT ---
Social Work- SW called [facility] and spoke with Pancho to follow up in making a report for pt d/t neglect of residence and potential dangers from hoarding and poor living conditions. Pancho took report and shared they would likely not open d/t lack of resources to assist with bed bug/hoarding concern, but will keep information for when additional resources may be obtained. KIERAN Hogue
--- NOTE | 2024-07-31 10:45 | CASEMGMT ---
MEAGHAN SANCHEZ Assessment Face to Face with patient for initial transition planning/care coordination assessment. MEAGHAN SANCHEZ introduced self and role at [facility], pt voices understanding. Pt is A&Ox4 and is resting comfortably in bed and is calm. Care providers, pharmacy, and demographics verified. Admitting dx: New AFIB LACE Strata: 1 PCP: Spencer Specialists: Hernan (For pt arthritis), Salome (For eyes) Preferred Pharmacy: [facility] Insurance: [employer] [facility] Prescription Benefit: Yes LNOK: Radha Mesa (Sister) Living Arrangements: Pt lives alone in a duplex that is one floor with a basement and 4 steps to enter with a handrail. Pt states that he currently owns both parts of the duplex ADLs/IADLs: States ind Transportation: Self. Denies concerns DME: CPAP with additional O2. W/C. FWW. Denies further needs HHC/SNF: Denies history or needs Pt?s goal: Home Plan: Home. Pt states that he plans to f/u with cardiology as an OP. Pt states that he will be getting prescribed Eliquis at time of DC. Free trial card given and this MEAGHAN SANCHEZ educated the pt that this may only be used once. Pt states understanding and thanks this MEAGHAN SANCHEZ and denies further questions or concerns. Marlena Durán RN, CM
--- NOTE | 2024-07-31 11:27 | DCINST_ITS ---
Discharge Instructions Diet Discharge Diet: Low fat / Low cholesterol Activity Discharge Activity: Return to Normal Activity Dressing / Incision Call your doctor if you observe: Fever of 101 or Higher, Shortness of breath, Dizziness, Fainting spells, Swelling in the ankles, Chest pain and Increased palpitations (irregular heartbeat) Follow Up Care Test Results: Test results from this visit will be discussed in further detail at your follow- up appointment, if applicable. Discharge Plan Admission Admit Date/Time: 07/30/24 18:14 Attending Provider: Aneudy Martines Primary Care Provider: Juana Wang Consulting Providers: Zach Miller; Dimas Callahan Instructions Additional Instructions / Restrictions: Follow-up with your PCP in 3 to 5 days to monitor your kidney function with a BMP as well as your hemoglobin with a CBC. If you continue to have blood in your urine went home, talk to your PCP about a referral to urology Discharge Orders/Prescriptions Prescriptions: New losartan 50 mg Tablet 50 mg PO DAILY 30 Days Qty: 30 0RF metoprolol tartrate 50 mg Tablet 50 mg PO BID 30 Days Qty: 60 0RF Eliquis 5 mg Tablet 5 mg PO BID 30 Days Qty: 60 0RF Continued potassium chloride [Klor-Con 10] 10 MEQ tablet extended release 20 meq PO DAILY tramadol 50 MG tablet 50 mg PO Q4H PRN PRN (Reason: Pain) pravastatin 20 MG tablet 20 mg PO QHS cholecalciferol (vitamin D3) 5,000 UNIT capsule 5,000 unit PO DAILY loratadine [Allergy Relief (loratadine)] 10 MG tablet 10 mg PO DAILY Slow Fe 47.5 mg PO DAILY cetirizine 10 mg tablet 10 mg PO DAILY brimonidine 0.2 % drops 1 drp ophthalmic (eye) BID montelukast 10 mg tablet 10 mg PO QHS ondansetron 4 mg tablet,disintegrating 4 mg PO Q8H PRN PRN (Reason: n/v) Patient Comments: has not started taking yet prednisone 10 mg tablet 10 mg PO DAILY PRN (Reason: gout ) timolol maleate 0.5 % drops 1 drp ophthalmic (eye) BID Otezla 20 mg tablet 20 mg PO BID Discontinued amlodipine 5 MG tablet 5 mg PO DAILY Referrals / Follow Up: Juana Wang PA [Primary Care Provider] - Within 1 Week Jesika Llyod PA [Med Staff - Adv Practice Prof] - 08/13/24 1:00 am Disposition Disposition (needs filled in before D/C Order can be placed): Home, Self Care
--- NOTE | 2024-07-31 16:00 | DS.PCM_ITS ---
Providers Date of Admission: 07/30/24 Primary Care Physician: WILIAM Lucio Consultations 07/28/24 21:49 Consult: Cardiology Routine Consulting Provider: Dimas Callahan Reason for Consult: New-onset Atrial Fibrillation with RVR. EMERGENT Consult: No MD Notified: Yes Date Notified: 07/28/24 Time Notified: 23:18 Method of Notification: Text Method of Consult:: In-Person Reason For Visit: NEW-ONSET ATRIAL FIBRILLATION WITH RVR Diagnosis Discharge Diagnosis (1) Atrial fibrillation with RVR: Status: Acute Code(s): I48.91 - Unspecified atrial fibrillation (2) Obesity (BMI 30-39.9): Status: Acute Code(s): E66.9 - Obesity, unspecified (3) JAS (obstructive sleep apnea): Status: Acute Code(s): G47.33 - Obstructive sleep apnea (adult) (pediatric) (4) Essential hypertension: Status: Acute Code(s): I10 - Essential (primary) hypertension (5) Psoriatic arthritis: Status: Acute Code(s): L40.50 - Arthropathic psoriasis, unspecified (6) Depression: Status: Acute Code(s): F32.A - Depression, unspecified Qualifiers: Depression Type: unspecified Qualified Code(s): F32.A - Depression, unspecified (7) Fibromyalgia: Status: Chronic Medications at Discharge Home Medications Slow Fe 47.5 mg PO DAILY 04/01/15 cholecalciferol (vitamin D3) 125 mcg (5,000 unit) capsule 5,000 unit PO DAILY 04/01/15 loratadine 10 mg tablet (Allergy Relief (loratadine)) 10 mg PO DAILY 04/01/15 potassium chloride 10 mEq tablet,extended release (Klor-Con) 20 meq PO DAILY 04/01/15 pravastatin 20 mg tablet 20 mg PO QHS 04/01/15 tramadol 50 mg tablet 50 mg PO Q4H PRN PRN Pain 04/01/15 brimonidine 0.2 % eye drops 1 drp ophthalmic (eye) BID 07/28/24 cetirizine 10 mg tablet 10 mg PO DAILY 07/28/24 montelukast 10 mg tablet 10 mg PO QHS 07/28/24 ondansetron 4 mg disintegrating tablet 4 mg PO Q8H PRN PRN n/v 07/28/24 prednisone 10 mg tablet 10 mg PO DAILY PRN gout 07/28/24 timolol maleate 0.5 % eye drops 1 drp ophthalmic (eye) BID 07/28/24 apremilast 20 mg tablet (Otezla) 20 mg PO BID 07/29/24 apixaban 5 mg tablet (Eliquis) 5 mg PO BID 30 days #60 tabs 07/31/24 losartan 50 mg tablet 50 mg PO DAILY 30 days #30 tabs 07/31/24 metoprolol tartrate 50 mg tablet 50 mg PO BID 30 days #60 tabs 07/31/24 Hospital Course Operations None Procedures 2-D Echocardiogram Summary of Care Provided Minutes Spent on Discharge: 33 Hospital Course: Per HPI: SALUD MESA, is a 68 M with a past medical history of essential hypertension, hyperlipidemia, obesity; with BMI of 36.2 this admission, JAS, history of psoriatic arthritis, BRITTANIE, history of Left inguinal hernia repair, history of appendectomy, history of eye surgery, fibromyalgia, depression and OA who presents to [facility] ER complaining of palpitations and nausea. Mr. Mesa reports his symptoms began earlier today with the abrupt- onset of palpitations so he went to see his PCP and was subsequently diagnosed with apparently New-onset Atrial Fibrillation with RVR in the ~140 bpm range resulting in him being referred to the ER for further evaluation and treatment. He admits to nausea but he denies associated fever, chills, vomiting, chest pain, SOB, recent illness, recent injury or recent changes to his medical regimen but he does admit his house is infested with bed bugs in addition to his five cats. In the ER he was diagnosed with New-onset Atrial Fibrillation with RVR and he was then admitted to the PCU under observation status for a stay that is expected to be less than 2 midnights. Hospital Course: 1. New onset A-fib with RVR/essential HTN/HLD?68-year-old male presents the hospital with palpitations and nausea and a little bit of shortness of breath. He was not hypoxic or requiring oxygen during this admission. He was found to be A-fib with RVR and started on Cardizem drip. I did become rate controlled but his rhythm stayed in A-fib. Cardiology evaluated and recommended initiating beta-rafaela therapy as well as Eliquis. He did have an episode of isolated hematuria but he has not had that send so we will continue with anticoagulation. He was increased from 25 mg of metoprolol p.o. twice daily to 50 mg p.o. twice daily secondary to tachycardia with ambulation. His Norvasc from home was discontinued and he was transition to losartan by cardiology. His renal function did improve so he should be able to tolerate this but I do recommend that he follow-up with PCP as an outpatient next week to monitor his his kidney function. Echocardiogram during his stay demonstrated an EF of 40% with an RVSP of 39 mmHg. I discussed with him the plan for discharge today he expressed understanding of the risks and benefits of going home and would like to go home today. Cardiology also felt that it was safe for discharge home. 2. Anxiety, depression, iron deficiency anemia are chronic medical conditions which complicate his care. His home medications were continued where appropriate Physical Exam Narrative General: Alert, Oriented x3, Cooperative, No apparent distress HEENT: Atraumatic, PERRLA, EOMI, Normocephalic Oral: Moist Mucosa Neck: Supple, No JVD Lungs: Diminished, Normal air movement, No rhonchi, No wheeze, No rales Cardiovascular: Regular rate, irregular rhythm, Normal S1, Normal S2, No murmurs Abdomen: Soft, Non Tender, Non-Distended, No Hepato-splenomegaly Extremities: No edema, Capillary Refill Less than 3 Seconds Skin: No rashes, No breakdown Musculoskeletal: No Tenderness to Palpation of Joints or Extremities Neurological: No focal neurological deficits, Motor Exam 5/5 strength throughout, Sensory exam intact to light touch and pain Psych/Mental Status: Flat Weight / BMI Weight Weight: 281 lb 6.4 oz Body Mass Index (BMI) 38.1 ABG / Lab / Microbiology Data 07/31/24 06:12 07/31/24 06:12 Laboratory: Laboratory Results - last 24 hr 07/31/24 06:12: WBC 9.5, RBC 4.10 L, Hgb 12.7 L, Hct 38.8 L, MCV 94.6 H, MCH 31.0, MCHC 32.7, RDW Std Deviation 42.8, RDW Coeff of Perri 12.4, Plt Count 232, MPV 9.9, Immature Gran % (Auto) 0.500, Neut % (Auto) 79.4 H, Lymph % (Auto) 11.3 L, [place] % (Auto) 5.8, Eos % (Auto) 2.4, Baso % (Auto) 0.6, Absolute Neuts (auto) 7.6, Absolute Lymphs (auto) 1.08, Nucleated RBC % 0, Sodium 139, Potassium 3.7, Chloride 109 H, Carbon Dioxide 26.0, Anion Gap 4 L, BUN 13, Creatinine 1.27, Estim Creat Clear Calc 77.93, Est GFR (MDRD) Af Amer 73, Est GFR (MDRD) Non-Af 60, BUN/Creatinine Ratio 10.2, Glucose 106, Calcium 8.7 D/C Instructions Discharge Diet: Low fat / Low cholesterol Call your doctor if you observe: Fever of 101 or Higher, Shortness of breath, Dizziness, Fainting spells, Swelling in the ankles, Chest pain and Increased palpitations (irregular heartbeat) Meaningful Use Info Meaningful Use Meaningful Use Diagnoses (Choose all that apply): None applicable Ischemic Stroke Statin Dosing Therapy Reference: STATIN DOSE THERAPY REFERENCE: * Patients > 75 years receive moderate or high dose statin therapy. * Patients 75 years or YOUNGER should receive HIGH intensity statin dose unless contraindicated. You will be required to document reason for non-treatment if statin daily dose does not meet guidelines. HIGH DOSE STATIN THERAPY DAILY Atorvastatin > than or = to 40 mg Rosuvastatin > than or = to 20 mg Amlodipine + Atorvastatin > than or = to 2.5/40 mg Ezetimibe + Simvastatin 10/80 mg Simvastatin 80mg Discharge Plan Admission Admit Date/Time: 07/30/24 18:14 Attending Provider: Aneudy Martines Primary Care Provider: Juana Wang Consulting Providers: Salud Miller; Dimas Callahan Instructions Additional Instructions / Restrictions: Follow-up with your PCP in 3 to 5 days to monitor your kidney function with a BMP as well as your hemoglobin with a CBC. If you continue to have blood in your urine went home, talk to your PCP about a referral to urology Discharge Orders/Prescriptions Prescriptions: New losartan 50 mg Tablet 50 mg PO DAILY 30 Days Qty: 30 0RF metoprolol tartrate 50 mg Tablet 50 mg PO BID 30 Days Qty: 60 0RF Eliquis 5 mg Tablet 5 mg PO BID 30 Days Qty: 60 0RF Continued potassium chloride [Klor-Con 10] 10 MEQ tablet extended release 20 meq PO DAILY tramadol 50 MG tablet 50 mg PO Q4H PRN PRN (Reason: Pain) pravastatin 20 MG tablet 20 mg PO QHS cholecalciferol (vitamin D3) 5,000 UNIT capsule 5,000 unit PO DAILY loratadine [Allergy Relief (loratadine)] 10 MG tablet 10 mg PO DAILY Slow Fe 47.5 mg PO DAILY cetirizine 10 mg tablet 10 mg PO DAILY brimonidine 0.2 % drops 1 drp ophthalmic (eye) BID montelukast 10 mg tablet 10 mg PO QHS ondansetron 4 mg tablet,disintegrating 4 mg PO Q8H PRN PRN (Reason: n/v) Patient Comments: has not started taking yet prednisone 10 mg tablet 10 mg PO DAILY PRN (Reason: gout ) timolol maleate 0.5 % drops 1 drp ophthalmic (eye) BID Otezla 20 mg tablet 20 mg PO BID Discontinued amlodipine 5 MG tablet 5 mg PO DAILY Referrals / Follow Up: Juana Wang PA [Primary Care Provider] - Within 1 Week Jesika Lloyd PA [Med Staff - [facility] Practice Prof] - 08/13/24 1:00 am Disposition Disposition (needs filled in before D/C Order can be placed): Home, Self Care Charges/Coding Visit Charges Inpatient E&M: 21878 Disch Hosp >30min
== END 2024-07-31 13:16 | disposition home or self-care (01) | DRG 310 ==
LOC: ED 21:26 → PCU 21:50
PROVIDERS: Admitting Provider Internal Medicine; Emergency Provider Emergency Medicine; PCP Physician Assistant; Visit Provider Family Medicine
DX: I48.91 Unspecified atrial fibrillation (principal); L40.50 Arthropathic psoriasis, unspecified; I10 Essential (primary) hypertension; F32.A Depression, unspecified; D50.9 Iron deficiency anemia, unspecified; Z68.36 Body mass index [BMI] 36.0-36.9, adult; G47.33 Obstructive sleep apnea (adult) (pediatric); M79.7 Fibromyalgia; E78.00 Pure hypercholesterolemia, unspecified; F41.9 Anxiety disorder, unspecified; E66.9 Obesity, unspecified; Z79.899 Other long term (current) drug therapy
CPT/HCPCS: 71045; 74177; 80048; 80053; 81001; 84443; 84484; 85025; 85610; 85730; 93005; 93306; 94660; 99285; J7030; Q9967; A4216

== ENCOUNTER → 2024-08-17 | Outpatient (CLI) | payer MEDICARE, SELFPAY ==
[2024-08-17 10:31] LABS: Absolute Lymphocyte Count 2.47 X10^3/uL (0.83-4.51); Absolute Neutrophil Count 3.7 X10^3/uL (2.0-7.7); Basophil# 0.07 X10^3/uL; Eosinophil# 0.32 X10^3/uL; Eosinophils% 4.4 % (0-5); Hematocrit 39.5 % (40-54); Hemoglobin 12.9 g/dL (13.0-16.5); Lymphocyte # 2.47 X10^3/ul (0.83-4.51); Lymphocyte % 34.2 % (19-41); Mean Corp Hgb Conc 32.7 g/dL (32-36); Mean Corpuscular Hgb 30.9 pg (27.0-32.0); Mean Corpuscular Volume 94.7 fL (80-94); Monocyte# 0.69 X10^3/uL; Monocyte% 9.5 % (0-10); NRBC Flagged by Analyzer 0 % (0-5); Neutrophil # 3.66 X10^3/uL (2.7-7.7); Neutrophil % 50.6 % (47-70); Platelet Count 257 K/mm3 (150-450); RBC Distribution Width CV 12.5 % (11.6-14.6); RBC Distribution Width SD 43.4 fl (35.1-43.9); Red Blood Count 4.17 M/mm3 (4.6-6.2); White Blood Count 7.2 K/mm3 (4.4-11.0)
[2024-08-17 11:07] LABS: ALB/GLOB Ratio 0.9 RATIO (0.9-2.4); AST(SGOT) 12 U/L (15-37); Alanine Aminotransfer ALT/SGPT 13 U/L (16-61); Albumin, Serum 3.5 g/dL (3.2-5.0); Alkaline Phosphatase 60 U/L (45-117); Anion Gap 5 (5-15); BUN 13 mg/dL (7-18); BUN/Creat Ratio 8.9 RATIO (10-20); Calcium,Total 9.4 mg/dL (8.5-10.1); Chloride 106 mmol/L (98-107); Creatinine, Serum 1.46 mg/dL (0.70-1.30); EST Glomerular Filtration Rate 51 mL/min (>60); Est Glom Filt Rate - Afr Amer 62 mL/min (>60); Globulin 3.9 g/dL (2.2-4.2); Glucose 102 mg/dL (74-106); Potassium 4.1 mmol/L (3.5-5.1); Protein, Total 7.4 g/dL (6.4-8.2); Sodium Level 139 mmol/L (136-145)
== END | disposition home or self-care (01) ==
PROVIDERS: PCP Physician Assistant; Referring Provider Internal Medicine Rheumatology; Visit Provider Internal Medicine Rheumatology
DX: L40.59 Other psoriatic arthropathy (principal); Z79.899 Other long term (current) drug therapy
CPT/HCPCS: 36415; 80053; 85025

== ENCOUNTER → 2025-08-04 | Outpatient (CLI) | payer MEDICARE, SELFPAY ==
[2025-08-04 12:31] LABS: Hematocrit 40.2 % (40-54); Hemoglobin 13.4 g/dL (13.0-16.5); Immature Granulocytes Count 0.040 X10^3/uL (0.0-0.0); Mean Corp Hgb Conc 33.3 g/dL (32-36); Mean Corpuscular Volume 96.9 fL (80-94); Mean Platelet Vol. 10.3 fl (6.2-12.0); NRBC Flagged by Analyzer 0 % (0-5); Platelet Count 331 K/mm3 (150-450); RBC Distribution Width CV 12.2 % (11.6-14.6); RBC Distribution Width SD 43.4 fl (35.1-43.9); Red Blood Count 4.15 M/mm3 (4.6-6.2); White Blood Count 6.9 K/mm3 (4.4-11.0)
[2025-08-04 12:57] LABS: AST(SGOT) 19 U/L (<=37); Alanine Aminotransfer ALT/SGPT 12 U/L (<=46); Albumin, Serum 4.3 g/dL (3.4-4.8); Alkaline Phosphatase 50 U/L (40-129); Anion Gap 11 (5-15); BUN 12 mg/dL (4-19); BUN/Creat Ratio 8.6 RATIO (10-20); Calcium,Total 9.6 mg/dL (7.6-11.0); Carbon Dioxide 24.3 mmol/L (21.0-32.0); Chloride 104 mmol/L (98-108); Globulin 3.1 g/dL (2.2-4.2); Glucose 98 mg/dL (70-99); Potassium 4.3 mmol/L (3.3-5.1)
== END | disposition home or self-care (01) ==
LOC: MTLAB 10:25
PROVIDERS: PCP Physician Assistant; Referring Provider Internal Medicine Rheumatology; Visit Provider Internal Medicine Rheumatology
DX: L40.59 Other psoriatic arthropathy (principal); Z79.899 Other long term (current) drug therapy; M79.7 Fibromyalgia; M17.0 Bilateral primary osteoarthritis of knee
CPT/HCPCS: 36415; 80053; 85025

== ENCOUNTER → 2025-10-11 | Outpatient (CLI) | payer MEDICARE, SELFPAY ==
[2025-10-11 18:03] LABS: Hematocrit 40.7 % (40-54); Hemoglobin 13.5 g/dL (13.0-16.5); Immature Granulocytes Count 0.040 X10^3/uL (0.0-0.0); Mean Corp Hgb Conc 33.2 g/dL (32-36); Mean Corpuscular Volume 98.1 fL (80-94); Mean Platelet Vol. 10.0 fl (6.2-12.0); NRBC Flagged by Analyzer 0 % (0-5); Platelet Count 280 K/mm3 (150-450); RBC Distribution Width CV 13.0 % (11.6-14.6); RBC Distribution Width SD 46.3 fl (35.1-43.9); Red Blood Count 4.15 M/mm3 (4.6-6.2); White Blood Count 8.8 K/mm3 (4.4-11.0)
[2025-10-11 18:23] LABS: AST(SGOT) 18 U/L (<=37); Alanine Aminotransfer ALT/SGPT 12 U/L (<=46); Albumin, Serum 3.7 g/dL (3.4-4.8); Alkaline Phosphatase 52 U/L (40-129); Anion Gap 14 (5-15); BUN 14 mg/dL (4-19); BUN/Creat Ratio 10.8 RATIO (10-20); Calcium,Total 8.9 mg/dL (7.6-11.0); Carbon Dioxide 22.3 mmol/L (21.0-32.0); Chloride 102 mmol/L (98-108); Globulin 1.8 g/dL (2.2-4.2); Glucose 87 mg/dL (70-99); Potassium 4.1 mmol/L (3.3-5.1)
== END | disposition home or self-care (01) ==
LOC: MTLAB 15:35
PROVIDERS: PCP Clinical Nurse Specialist Adult Health; Referring Provider Internal Medicine Rheumatology; Visit Provider Internal Medicine Rheumatology
DX: L40.59 Other psoriatic arthropathy (principal); Z79.899 Other long term (current) drug therapy
CPT/HCPCS: 36415; 80053; 85025